=== PATIENT | female | born 1940 | race Caucasian/White ===

== ENCOUNTER 2021-07-30 19:07 | Inpatient (IN) ==
[2021-07-30] MEDS ORDERED: dexAMETHasone**PF** 10 MG/ML VIAL IV ONE (19:32)
[2021-07-30] MEDS ORDERED: SODIUM CHLORIDE 0.9% 500 ML IV STA (19:32)
--- NOTE | 2021-07-30 19:39 | Emergency Department Note ---
History of Present Illness General Chief complaint: Shortness of Breath/Dyspnea Stated complaint: COVID EXPOSURE, SOB, COUGH, WEAK, Time Seen by Provider: 07/30/21 19:22 History of Present Illness 80-year-old female presents to the ED with a chief complaint of shortness of breath, cough, fatigue and fever fever. Symptoms are worse with exertion. She states that a family member had Covid and she started having symptoms about 3 to 4 days ago. No chest pains. No leg swelling. Denies any significant past me dical history and takes no medications. Home Medications Medication Instructions Recorded Confirmed Type ibuprofen 200 mg tablet (Advil) 400 mg PO Q6H PRN 07/30/21 07/30/21 History lisinopril 20 1 tab PO UD 07/30/21 07/30/21 History mg-hydrochlorothiazide 12.5 mg tablet Allergies Allergy/AdvReac Type Severity Reaction Status Date / Time cephalexin [From Keflex] Allergy Unknown Verified 07/30/21 20:37 Penicillins AdvReac HEART Verified 07/30/21 20:37 STOPPED Past Med/Surg History Social History Smoking Status: Never smoker Feels Safe at Home: Yes Review of Systems A total of 10 systems reviewed and were otherwise negative Physical Exam Vital Signs Vital Signs - 24 hr 07/30/21 19:16 07/30/21 19:27 07/30/21 20:07 Temperature 37.9 C H Temperature Source Temporal Artery Scan Pulse Rate 95 H Pulse Rate [Apical] 89 Pulse Rhythm [Apical] Regular Pulse Strength [Apical] Normal Respiratory Rate 26 H 24 Respiratory Effort / Characteristics Spontaneous Labored Non-Labored Respiratory Depth Normal Normal Respiratory Pattern Regular Blood Pressure 204/103 H Blood Pressure [Right Arm] 173/87 H Blood Pressure Mean 136 Blood Pressure Mean [Right Arm] 115 Pulse Oximetry 73 L 96 96 Oxygen Delivery Method Room Air Oxymask Oxymask Oxygen Flow Rate 15 10 Sepsis Recent Fever Within 48 Hours No Sepsis New/Unexplained Change in Mental Status No Sepsis Action Taken by Nursing No Action Required Oxygen Flow Rate - Titration 15 Pulse Oximetry Post Tiitration 96 07/30/21 21:08 Temperature Temperature Source Pulse Rate Pulse Rate [Apical] 77 Pulse Rhythm [Apical] Pulse Strength [Apical] Respiratory Rate 20 Respiratory Effort / Characteristics Respiratory Depth Respiratory Pattern Blood Pressure Blood Pressure [Right Arm] 178/88 H Blood Pressure Mean Blood Pressure Mean [Right Arm] 118 Pulse Oximetry 92 Oxygen Delivery Method Oxymask Oxygen Flow Rate 10 Sepsis Recent Fever Within 48 Hours Sepsis New/Unexplained Change in Mental Status Sepsis Action Taken by Nursing Oxygen Flow Rate - Titration Pulse Oximetry Post Tiitration CONSTITUTIONAL/VITAL SIGNS: Reviewed / noted above. GENERAL: Non-toxic in appearance. Mild respiratory distress. INTEGUMENTARY: Warm, dry, and [place]. HEAD: Normocephalic. EYES: without scleral icterus or trauma. ENT/OROPHARYNX: clear and moist. LYMPHADENOPATHY/NECK: Is supple without lymphadenopathy or meningismus. RESPIRATORY: Clear to auscultation bilaterally but diminished Mild increased work of breathing. CARDIOVASCULAR: Regular rate and rhythm. GI/ABDOMEN: Soft and nontender. No organomegaly or pulsatile mass. EXTREMITIES: Warm and well perfused. BACK: No CVA tenderness. NEUROLOGICAL: Intact without focal deficits. PSYCHIATRIC: normal affect. MUSCULOSKELETAL: Normally developed with good muscle tone. TRIAGE NURSING DOCUMENTATION REVIEWED. Course Administered Medications Discontinued Medications Dexamethasone Sodium Phosphate (DexamethasonePf 10 Mg/Ml Vial) 6 mg IV NOW ONE Stop: 07/30/21 19:33 Last Admin: 07/30/21 20:03 Dose: 6 mg Documented by: [id number] Sodium Chloride (Nss) 500 mls @ 999 mls/hr IV .Q31M STA Stop: 07/30/21 20:02 Last Admin: 07/30/21 20:04 Dose: 999 mls/hr Documented by: [id number] Cefepime HCl (Maxipime) 2,000 mg in 20 mls @ 5 mls/min IV NOW STA; Protocol Stop: 07/30/21 20:39 Last Admin: 07/30/21 21:30 Dose: Not Given Documented by: [id number] Potassium Chloride (Potassium Chloride 10 Meq Tabcr) 40 meq PO NOW STA Stop: 07/30/21 21:02 Last Admin: 07/30/21 21:29 Dose: 40 meq Documented by: [id number] Critical Care Time Critical Care Time: Yes Total Critical Care Time: 30 I have personally spent 30 minutes of critical care time in the direct management of this patient. This includes bedside care, interpretation of diagnostic studies, and testing, discussion with consultants, patient, and family members, and other required patient management activities. This 30 minutes is in excess of all separately billable procedures. Medical Decision Making Differential Diagnosis The differential was considered includes acute myocardial infarction, acute coronary syndrome, myocarditis, pericarditis, pericardial effusions /tamponad, esophageal perforation, pulmonary embolism, pneumonia, pneumothorax, cardiomyopathy, congestive heart, anemia , COPD/asthma exacerbation. Medical Records Attestation: I reviewed the patient's medical records. Home Medications Current Medication List: was personally reviewed by me Laboratory Data Attestation: I reviewed the patient's lab results. Result diagrams: 07/30/21 19:30 07/30/21 19:30 Lab Results 07/30/21 07/30/21 07/30/21 Range/Units 19:30 19:30 19:30 WBC 9.27 (4.8-10.8) K/uL RBC 4.87 (4.2-5.4) M/uL Hgb 14.4 (12.0-16.0) g/dL Hct 43.4 (37-47) % MCV 89.1 (80-100) fL MCH 29.6 (25-34) pg MCHC 33.2 (32-36) g/dL RDW Std Deviation 44.5 (36.4-46.3) fL RDW Coeff of Sherry 13.5 (11.5-14.5) % Plt Count 302 (130-400) K/uL MPV 10.0 (7.4-10.4) fL Immature Gran % (Auto) 0.2 % Neut % (Auto) 92.6 % Lymph % (Auto) 4.6 % [place] % (Auto) 2.5 % Eos % (Auto) 0.0 % Baso % (Auto) 0.1 % Neut # (Auto) 8.58 H (1.4-6.5) K/uL Lymph # (Auto) 0.43 L (1.2-3.4) K/uL [place] # (Auto) 0.23 (0.11-0.59) K/uL Eos # (Auto) 0.00 (0-0.5) K/uL Baso # (Auto) 0.01 (0-0.2) K/uL Immature Gran # (Auto) 0.02 (0.00-0.02) K/uL PT 10.5 (9.0-12.0) Seconds INR 1.0 (0.9-1.1) APTT 37.6 H (21.0-31.0) Seconds PTT Ratio 1.4 VBG pH (7.36-7.41) VBG pCO2 (38-50) mmHg VBG pO2 mmHg VBG HCO3 mmol/L VBG O2 Saturation % VBG Base Excess mEq/L Barometric Pressure mm/Hg Sodium 136 (136-145) mmol/L Potassium 2.6 L (3.5-5.1) mmol/L Chloride 98 (98-107) mmol/L Carbon Dioxide 30 (21-32) mmol/L Anion Gap 8.0 (3-11) BUN 19 H (7-18) mg/dl Creatinine 0.94 (0.6-1.2) mg/dl Est Cr Clr Drug Dosing 44.6 ml/min Est GFR ( Amer) 65.9 ml/min Est GFR (Non-Af Amer) 56.9 ml/min BUN/Creatinine Ratio 20.1 H (10-20) Glucose 203 H (70-99) mg/dl Lactate (0.4-2.0) mmol/L Calcium 9.0 (8.5-10.1) mg/dl Total Bilirubin 0.7 (0.2-1) mg/dl AST 23 (15-37) U/L ALT 20 (12-78) Alkaline Phosphatase 83 (45-117) U/L Lactate Dehydrogenase (84-246) U/L Troponin I 0.022 (0-0.045) ng/ml C-Reactive Protein 28.80 H (0-0.29) mg/dl NT-Pro-B Natriuret Pep 920 (0-1800) pg/ml Total Protein 7.0 (6.4-8.2) gm/dl Albumin 2.5 L (3.4-5.0) gm/dl Globulin 4.5 H (2.5-4.0) gm/dl Albumin/Globulin Ratio 0.6 L (0.9-2) Procalcitonin (0-0.5) ng/ml SARS-CoV-2 (PCR) (Negative) Influenza Type A (PCR) (Neg) Influenza Type B (PCR) (Neg) RSV (RT-PCR) (Neg) 12/08/21 12/08/21 12/08/21 Range/Units 19:30 19:30 19:30 WBC (4.8-10.8) K/uL RBC (4.2-5.4) M/uL Hgb (12.0-16.0) g/dL Hct (37-47) % MCV (80-100) fL MCH (25-34) pg MCHC (32-36) g/dL RDW Std Deviation (36.4-46.3) fL RDW Coeff of Sherry (11.5-14.5) % Plt Count (130-400) K/uL MPV (7.4-10.4) fL Immature Gran % (Auto) % Neut % (Auto) % Lymph % (Auto) % [place] % (Auto) % Eos % (Auto) % Baso % (Auto) % Neut # (Auto) (1.4-6.5) K/uL Lymph # (Auto) (1.2-3.4) K/uL [place] # (Auto) (0.11-0.59) K/uL Eos # (Auto) (0-0.5) K/uL Baso # (Auto) (0-0.2) K/uL Immature Gran # (Auto) (0.00-0.02) K/uL PT (9.0-12.0) Seconds INR (0.9-1.1) APTT (21.0-31.0) Seconds PTT Ratio VBG pH (7.36-7.41) VBG pCO2 (38-50) mmHg VBG pO2 mmHg VBG HCO3 mmol/L VBG O2 Saturation % VBG Base Excess mEq/L Barometric Pressure mm/Hg Sodium (136-145) mmol/L Potassium (3.5-5.1) mmol/L Chloride (98-107) mmol/L Carbon Dioxide (21-32) mmol/L Anion Gap (3-11) BUN (7-18) mg/dl Creatinine (0.6-1.2) mg/dl Est Cr Clr Drug Dosing ml/min Est GFR ( Amer) ml/min Est GFR (Non-Af Amer) ml/min BUN/Creatinine Ratio (10-20) Glucose (70-99) mg/dl Lactate (0.4-2.0) mmol/L Calcium (8.5-10.1) mg/dl Total Bilirubin (0.2-1) mg/dl AST (15-37) U/L ALT (12-78) Alkaline Phosphatase (45-117) U/L Lactate Dehydrogenase 337 H (84-246) U/L Troponin I (0-0.045) ng/ml C-Reactive Protein (0-0.29) mg/dl NT-Pro-B Natriuret Pep (0-1800) pg/ml Total Protein (6.4-8.2) gm/dl Albumin (3.4-5.0) gm/dl Globulin (2.5-4.0) gm/dl Albumin/Globulin Ratio (0.9-2) Procalcitonin 0.54 H (0-0.5) ng/ml SARS-CoV-2 (PCR) POSITIVE A* (Negative) Influenza Type A (PCR) Negative (Neg) Influenza Type B (PCR) Negative (Neg) RSV (RT-PCR) Negative (Neg) 07/30/21 07/30/21 Range/Units 19:55 20:02 WBC (4.8-10.8) K/uL RBC (4.2-5.4) M/uL Hgb (12.0-16.0) g/dL Hct (37-47) % MCV (80-100) fL MCH (25-34) pg MCHC (32-36) g/dL RDW Std Deviation (36.4-46.3) fL RDW Coeff of Sherry (11.5-14.5) % Plt Count (130-400) K/uL MPV (7.4-10.4) fL Immature Gran % (Auto) % Neut % (Auto) % Lymph % (Auto) % [place] % (Auto) % Eos % (Auto) % Baso % (Auto) % Neut # (Auto) (1.4-6.5) K/uL Lymph # (Auto) (1.2-3.4) K/uL [place] # (Auto) (0.11-0.59) K/uL Eos # (Auto) (0-0.5) K/uL Baso # (Auto) (0-0.2) K/uL Immature Gran # (Auto) (0.00-0.02) K/uL PT (9.0-12.0) Seconds INR (0.9-1.1) APTT (21.0-31.0) Seconds PTT Ratio VBG pH 7.46 H (7.36-7.41) VBG pCO2 46 (38-50) mmHg VBG pO2 30 mmHg VBG HCO3 32 mmol/L VBG O2 Saturation < 60.0 % VBG Base Excess 7.1 mEq/L Barometric Pressure 731.6 mm/Hg Sodium (136-145) mmol/L Potassium (3.5-5.1) mmol/L Chloride (98-107) mmol/L Carbon Dioxide (21-32) mmol/L Anion Gap (3-11) BUN (7-18) mg/dl Creatinine (0.6-1.2) mg/dl Est Cr Clr Drug Dosing ml/min Est GFR ( Amer) ml/min Est GFR (Non-Af Amer) ml/min BUN/Creatinine Ratio (10-20) Glucose (70-99) mg/dl Lactate 1.9 (0.4-2.0) mmol/L Calcium (8.5-10.1) mg/dl Total Bilirubin (0.2-1) mg/dl AST (15-37) U/L ALT (12-78) Alkaline Phosphatase (45-117) U/L Lactate Dehydrogenase (84-246) U/L Troponin I (0-0.045) ng/ml C-Reactive Protein (0-0.29) mg/dl NT-Pro-B Natriuret Pep (0-1800) pg/ml Total Protein (6.4-8.2) gm/dl Albumin (3.4-5.0) gm/dl Globulin (2.5-4.0) gm/dl Albumin/Globulin Ratio (0.9-2) Procalcitonin (0-0.5) ng/ml SARS-CoV-2 (PCR) (Negative) Influenza Type A (PCR) (Neg) Influenza Type B (PCR) (Neg) RSV (RT-PCR) (Neg) Imaging Data Radiologist's Impression: Chest X-Ray 07/30/21 19:32 XR chest 1V portable CLINICAL HISTORY: Dyspnea TECHNIQUE: Single frontal radiograph of the chest was obtained. Comparison: None available at the time of this dictation. FINDINGS: No lines and tubes are seen. Cardiomegaly is noted. Bilateral lower lung predom inant airspace opacities are seen. No evidence of pleural effusion or pneumothorax. IMPRESSION: Bilateral lower lung predominant airspace opacities which may represent atelectasis, pneumonia, and/or aspiration. ACT 112: Negative or not required by law. Electronically signed by: Derek Tomas M.D. 07/30/2021 8:05 PM ECG Data Attestation: I personally reviewed and interpreted this ECG as follows: Additional Comments: Twelve-lead EKG: Per my interpretation there is a sinus rhythm at a rate of 87. No ST elevation. No PVCs. Normal QTC. MDM Narrative Patient presents with cough, hypoxia and fever likely related to recent Covid exposure 3 to 4 days ago. Initial vital signs show a oxygen saturation of 73% on room air. Temperature 37.9. Blood pressure was initially elevated however 200 systolic. This improved short time later to 173/87. She is in mild respiratory distress on exam. EKG shows sinus rhythm at a rate of 87. CBC is normal. Potassium was 2.6. CRP is 28. Troponin is negative. Procalcitonin is 0.54. Chest x-ray reveals bilateral lower lobe opacities. VBG was unremarkable. The patient was treated with some oral potassium. She was also given IV Decadron and IV fluids She will be seen by the hospitalist for further patient evaluation and care. Impression & Plan COVID-19, Hypoxia Discharge Plan Visit Data Chief Complaint: Shortness of Breath/Dyspnea Stated Complaint: COVID EXPOSURE, SOB, COUGH, WEAK, ED Provider: Heron Meng Discharge Problem: COVID-19, Hypoxia Patient Disposition: Being Evaluated by Hospitalist Forms Stand Alone Forms: My [facility] Relative[facility] Prescriptions Prescriptions: No Action lisinopril-hydrochlorothiazide 20-12.5 mg tablet 1 tab PO UD RF: 0 ibuprofen [Advil] 200 mg Tablet 400 mg PO Q6H PRN (Reason: Pain) RF: 0 Referrals Referrals: PCP,NO [Physician] -
[2021-07-30 19:40] LABS: Basophils # (auto) 0.01 K/uL (0-0.2); Basophils % (auto) 0.1 %; Hematocrit (blood only) 43.4 % (37-47); Hemoglobin 14.4 g/dL (12.0-16.0); Immature Granulocytes # (auto) 0.02 K/uL (0.00-0.02); Immature Granulocytes % (auto) 0.2 %; Lymphocytes # (auto) 0.43 K/uL (1.2-3.4); Lymphocytes % (auto) 4.6 %; Mean Corpuscular Hemoglobin 29.6 pg (25-34); Mean Corpuscular Hgb Conc 33.2 g/dL (32-36); Mean Corpuscular Volume 89.1 fL (80-100); Monocytes # (auto) 0.23 K/uL (0.11-0.59); Monocytes % (auto) 2.5 %; Neutrophils # (auto) 8.58 K/uL (1.4-6.5); Neutrophils % (auto) 92.6 %; Platelet Count 302 K/uL (130-400); RDW Coefficient of Variation 13.5 % (11.5-14.5); RDW Standard Deviation 44.5 fL (36.4-46.3); Red Blood Count 4.87 M/uL (4.2-5.4); White Blood Count 9.27 K/uL (4.8-10.8)
[2021-07-30 19:55] LABS: Partial Thromboplastin Ratio 1.4; Partial Thromboplastin Time 37.6 Seconds (21.0-31.0); Prothrombin Time 10.5 Seconds (9.0-12.0)
[2021-07-30 20:00] LABS: Albumin Level 2.5 gm/dl (3.4-5.0); BUN Creatinine Ratio 20.1 (10-20); Creatinine Clr Calc Pharmacy 44.6 ml/min; Est GFR (African American) 65.9 ml/min; Est GFR (Non-African American) 56.9 ml/min; Potassium 2.6 mmol/L (3.5-5.1)
--- NOTE | 2021-07-30 20:06 | XRay Report ---
XR chest 1V portable CLINICAL HISTORY: Dyspnea TECHNIQUE: Single frontal radiograph of the chest was obtained. Comparison: None available at the time of this dictation. FINDINGS: No lines and tubes are seen. Cardiomegaly is noted. Bilateral lower lung predominant airspace opaciti es are seen. No evidence of pleural effusion or pneumothorax. IMPRESSION: Bilateral lower lung predominant airspace opacities which may represent atelectasis, pneumonia, and/o r aspiration. ACT 112: Negative or not required by law. Electronically signed by: Derek Tomas M.D. 07/30/2021 8:05 PM
[2021-07-30 20:08] LABS: Albumin Globulin Ratio 0.6 (0.9-2); Bilirubin,Total 0.7 mg/dl (0.2-1); C Reactive Protein 28.8 mg/dl (0-0.29); Globulin 4.5 gm/dl (2.5-4.0); Troponin I 0.022 ng/ml (0-0.045)
[2021-07-30 20:16] LABS: Base Excess VBG 7.1 mEq/L; HCO3 VBG 32 mmol/L; PCO2 VBG 46 mmHg (38-50); PO2 VBG 30 mmHg; pH VBG 7.46 (7.36-7.41)
[2021-07-30 20:20] LABS: Oxygen Saturation VBG < 60.0 %
[2021-07-30] MEDS ORDERED: CEFEPIME 2,000 MG/20 ML VIAL IV STA (20:36)
[2021-07-30 20:40] LABS: Influenza A virus by PCR Negative (Neg); Influenza B virus by PCR Negative (Neg); RSV by PCR Negative (Neg)
[2021-07-30 20:50] LABS: SARS CoV2 RNA(COVID-19) InHosp POSITIVE (Negative)
[2021-07-30] MEDS ORDERED: POTASSIUM CHLORIDE 10 MEQ TABCR PO STA (21:01)
[2021-07-30] MEDS ORDERED: REMDESIVIR 200 MG in SODIUM CHLORIDE 0.9% 210 ML IV STA (22:09)
[2021-07-30] MEDS ORDERED: POTASSIUM CHLORIDE / WTR 10 MEQ/100 ML PLCT IV STA (22:26)
[2021-07-30] MEDS ORDERED: ACETAMINOPHEN 325 MG TAB PO PRN (23:31)
[2021-07-30] MEDS ORDERED: LISINOPRIL/HCTZ 20/12.5MG 1 TAB TAB PO SCH (23:31)
[2021-07-30] MEDS ORDERED: ALBUTEROL HFA 8 GM INHALER INH PRN (23:31)
[2021-07-30] MEDS ORDERED: ONDANSETRON INJ 2 MG/ML 2 ML VIAL IV PRN (23:31)
[2021-07-30] MEDS ORDERED: SODIUM CHLORIDE 0.9% 1000ML 1,000 ML IV SCH (23:31)
[2021-07-30] MEDS ORDERED: NITROGLYCERIN SL 0.4 MG/TAB TAB SL PRN (23:31)
--- NOTE | 2021-07-30 23:41 | History and Physical Report ---
DATE OF ADMISSION: 07/30/2021. CHIEF COMPLAINT: Cough, weakness. HISTORY OF PRESENT ILLNESS: This is an 80-year-old female with past medical history significant for hypertension, who presents with COVID symptoms since last Wednesday and Wednesday, 4-5 days ago. The patient says her recently and she thinks she was exposed to a family member who got COVID. She is feeling extremely fatigued, weakness, appetite is down, on and off fevers, on and off cough, of and off headaches. When she stands up, she feels somewhat imbalance. The weakness brought her to the hospital and she was saturating 73% on room air. With 10 liters, she is saturating at 92%. Currently resting comfortably. Denies any blurred visions. No runny nose, no sore throat, no earaches. No difficulty swallowing. No chest pain. Denies any shortness of breath at this time. No nausea, no abdominal pain, no diarrhea. No swelling in the legs. ALLERGIES: KEFLEX, PENICILLINS. PAST MEDICAL HISTORY: As mentioned above. PAST SURGICAL HISTORY: The patient denies any surgical history. FAMILY HISTORY: The patient denies any family history. Her parents lived to old age. SOCIAL HISTORY: Denies any smoking or alcohol. Currently, since her on 07/24/2021 she is living alone. REVIEW OF SYSTEMS: As per HPI. Rest of review of systems negative. PHYSICAL EXAMINATION: GENERAL: The patient is of moderate build, not in acute distress. VITAL SIGNS: Temperature 37.9, pulse 77, respiratory rate 20, blood pressure 178/88, oxygen 92% on 10 liters. HEENT: Pupils equal, round, and reactive to light. Oral mucosa moist. NECK: No JVD. No neck masses seen. CARDIOVASCULAR: S1 and S2 heard. Regular rate and rhythm. No murmur, no gallop. RESPIRATORY SYSTEM: Normal AP diameter. No accessory muscle use. No wheezing, no crackles. ABDOMEN: Soft, bowel sounds present, nontender, no distention. CENTRAL NERVOUS SYSTEM: Cranial nerves II-XII grossly intact, nonfocal. EXTREMITIES: No edema, no erythema. LABORATORY DATA: WBC 9.2, hemoglobin 14.4, hematocrit 43.4, platelets 302. PT 10.5, INR 1, APTT 37.6. Venous blood gas, pH of 7.46, pCO2 of 46, pO2 of 30, bicarbonate 32. Sodium 136, potassium 2.6, chloride 98, CO2 of 30, BUN 19, creatinine 0.9, serum glucose 203. Lactate 1.9, calcium 9, total bilirubin 0.7, AST 23, ALT 20, alkaline phosphatase 83. Lactate dehydrogenase of 337. Troponin 1 of 0.022. CRP 28, BNP 920. Procalcitonin 0.54. SARS-CoV-2 PCR positive. Influenza A and B negative. RSV negative. IMAGING DATA: Chest x-ray, bilateral lower lobe predominant airspace opacities, which may represent atelectasis, pneumonia and/or aspiration. ASSESSMENT AND PLAN: This 80-year-old female presents with COVID pneumonia. 1. COVID pneumonia, hypoxia, 73% on room air, requiring 10 L oxygen. Having symptoms since last Wednesday and Wednesday, 4-5 days. Not vaccinated. Meets criteria for remdesivir and steroids will be given. CRP is elevated. Will follow the repeat CRP in the a.m. Also repeat procalcitonin in the a.mas borderline elevated.. Empiric Doxycycline. Closely monitor in the tele floor. 2. Hyperglycemia: Sugars elevated and currently the patient gets steroids. Will follow HbA1c levels. Follow the blood sugars. 3. Hypokalemia: Potassium 2.6, will replace. Follow the repeat labs in the a.m. 4. Hypertension: Continue her home medication of lisinopril/hydrochlorothiazide and will monitor the blood pressure. Add IV hydralazine p.r.n. 5. Deep venous thrombosis prophylaxis: Lovenox. DISPOSITION: Closely monitor in the tele floor. Level 1 full code. Expect to discharge home and follow with family doctor. PT/OT prior to discharge. Social service to help with discharge planning. Job ID: [id number] MTDD
[2021-07-31] MEDS ORDERED: hydrALAZINE HCL 20 MG/ML VIAL IV PRN (00:30)
[2021-07-31] MEDS: ENOXAPARIN INJ 40 MG/0.4 ML SYR SQ SCH ×2 (00:59→21:20)
[2021-07-31] MEDS: POTASSIUM CHLORIDE / WTR 10 MEQ/100 ML PLCT IV SCH ×3 (01:00→03:39)
[2021-07-31] MEDS: SODIUM CHLORIDE 0.9% 10ML FLUSH IV SCH ×2 (02:19→22:31)
[2021-07-31] MEDS: DOXYCYCLINE HYCLATE 100 MG in DEXTROSE 5% 100 ML IV SCH ×3 (02:25→23:56)
[2021-07-31 05:54] LABS: Hematocrit (blood only) 39.1 % (37-47); Hemoglobin 12.9 g/dL (12.0-16.0); Immature Granulocytes # (auto) 0.02 K/uL (0.00-0.02); Immature Granulocytes % (auto) 0.2 %; Lymphocytes # (auto) 0.41 K/uL (1.2-3.4); Mean Corpuscular Hemoglobin 29.3 pg (25-34); Mean Corpuscular Volume 88.9 fL (80-100); Monocytes # (auto) 0.14 K/uL (0.11-0.59); Monocytes % (auto) 1.7 %; Neutrophils # (auto) 7.65 K/uL (1.4-6.5); Neutrophils % (auto) 93.1 %; Platelet Count 281 K/uL (130-400); RDW Coefficient of Variation 13.6 % (11.5-14.5); RDW Standard Deviation 44.4 fL (36.4-46.3); White Blood Count 8.22 K/uL (4.8-10.8)
[2021-07-31 06:40] LABS: Albumin Level 2.2 gm/dl (3.4-5.0); BUN Creatinine Ratio 27.5 (10-20); Bilirubin,Total 0.5 mg/dl (0.2-1); Calcium 8.4 mg/dl (8.5-10.1); Creatinine Clr Calc Pharmacy 65.9 ml/min; Est GFR (Non-African American) 83.7 ml/min; Magnesium 2.2 mg/dl (1.8-2.4); Potassium 3.4 mmol/L (3.5-5.1)
[2021-07-31 07:03] LABS: Bilirubin Direct 0.2 mg/dl (0-0.2); Total Protein 6.3 gm/dl (6.4-8.2)
[2021-07-31 07:12] LABS: Estimated Average Glucose 148 mg/dl; Hemoglobin A1C 6.8 % (4.5-5.6)
[2021-07-31] MEDS ORDERED: POTASSIUM CHLORIDE CRTAB 20 MEQ TABCR PO STA (07:29)
[2021-07-31] MEDS ORDERED: PHARMACY GLYCEMIC MGMT CONSULT PRN (09:08)
[2021-07-31] MEDS ORDERED: INSULIN HUMAN NPH SC ONE (10:00)
--- NOTE | 2021-07-31 10:04 | Pharmacy Report ---
Pharmacy Glycemic Short Note 2 - Date of Service July 31, 2021 - Glycemic Short BSG Results (Last 24 hours): 07/30/21 07/31/21 19:30 05:37 Glucose 203 H 191 H OUTPATIENT ANTIDIABETIC REGIMEN: * N/A * A1c = 6.8% on 07/31/21 ASSESSMENT: * 80yo female with steroid induced hyperglycemia. A1c slightly elevated and diagnostic for DMT2 as it is > 6.5% but likely just lifestyle interventions will be needed at [place]. * Pt admitted with COVID-19; receiving dexamethasone 6mg IV daily. Will start weight based NPH for steroid induced hyperglycemia * NPH insulin is used to counteract the hyperglycemic effect of once daily steroids. NPH should be dosed at the same time that steroid is given * The dose of NPH given is dependent on the steroid dose given * For doses of prednisone 40mg/day or equivalent or above NPH dose should be 0.4 units/kg * NPH dosing above is given in addition to patients basal insulin needs * Typically, patients will also need rapid-acting insulin with meals PLAN FOR INPATIENT GLYCEMIC CONTROL: * Basal insulin * NPH 30 units SQ daily with dexamethasone (hold if dexamethasone held or DC) * Bolus insulin * NovoLog per scale ACHS or Q6hrs while NPO * Goal Range: Low 120 mg/dL - High 160 mg/dL * Correction Factor: 30 mg/dL/unit * Nutritional / Prandial insulin per carb ratio of 1 unit per 10 grams CHO consumed PLAN FOR DISCHARGE: * Support Patient Self-Management Healthy Lifestyle (diet, exercise, and smoking cessation) Disease self-management (SMBG) Prevention of complications (BP, Lipid goals, Immunizations) Consider outpatient Diabetes Self-Management Education & Support
[2021-07-31] MEDS ORDERED: POTASSIUM CHLORIDE 10 MEQ TABCR PO ONE (10:11)
[2021-07-31] MEDS: dexAMETHasone 6 MG in SYRINGE 0 ML IV SCH (10:16)
[2021-07-31] MEDS: FLUTICASONE FUROATE 100MCG 14 PUFFS/INHALER INH SCH (10:17)
[2021-07-31] MEDS: LISINOPRIL/HCTZ 20/12.5MG 1 TAB TAB PO SCH (10:17)
[2021-07-31] MEDS ORDERED: NovoLIN-R INSULIN PER UNIT CHARGE ONE (12:49)
[2021-07-31] MEDS: INSULIN ASPART PER UNIT SC SCH ×5 (12:53→21:30)
[2021-07-31] MEDS ORDERED: OPTIRAY 320 125ml IV ONE (14:26)
--- NOTE | 2021-07-31 14:40 | CT Scan Report ---
CT angio chest PE protocol CLINICAL HISTORY: PE TECHNIQUE: Multidetector row helical CT of the chest was performed. Coronal and sagittal reformations were obtained. Automated dose lowering techniques and/or adjustment according to patient size were u tilized for this exam. Comparison: None available at the time of this dictation. FINDINGS: Lungs and pleura: Multifocal groundglass and consolidative opacities are seen favoring the lower lung s. Heart and pericardium: Heart size is normal. No pericardial effusion. Vessels: The pulmonary trunk is enlarged measuring 33 mm. Mediastinum and rena: Subcentimeter lymph nodes are seen. Chest wall and lower neck: A 19 mm left thyroid nodule is seen. Abdomen: Unremarkable. Bones: Unremarkable. IMPRESSION: 1. No evidence of pulmonary embolism. 2. Pulmonary hypertension. 3. Multiple airspace consolidative opacities compatible with viral pneumonia with or without superim posed aspiration/atelectasis. ACT 112: Negative or not required by law. Electronically signed by: Derek Tomas M.D. 07/31/2021 2:38 PM
--- NOTE | 2021-07-31 21:17 | Hospitalist Progress Note ---
Date of Service July 31, 2021 Assessment & Plan (1) Pneumonia due to COVID-19 virus: (2) Hypoxia: Plan: 1. COVID pneumonia Acute Hypoxic Respiratory Failure - 73% on room air, requiring 10 L oxygen. Having symptoms since last Wednesday and Wednesday, 4-5 days. Not vaccinated. - CT chest: (+) pneumonia Procalcitonin negative - on 10 L oxymask - continue Decadron and Remdesivir - Lovenox for DVT prophylaxis 2. Hyperglycemia - a1c 6.8 - Pharmacy Glycemic consulted 3. Hypokalemia: - 3.4 - replaced 4. Hypertension: Continue her home medication of lisinopril/hydrochlorothiazide 5. Deep venous thrombosis prophylaxis: Lovenox. Admission and Anticipated Discharge Date Admission Date: July 30, 2021 Subjective ff up for COVID Pneumonia, hypoxic respiratory failure, etc seen resting in bed, comfortable on 10 L 02 via oxymask states she feels improved compared to admisison breathing has improved has productive cough no chest pain no other symptoms Review of Systems Review of Systems: all noted and negative except for above Physical Exam Physical Exam: General- oriented x 3, not in distress, speaks in sentences with no effort or accessory muscle use Eyes- anicteric Neck- no JVD Lungs- mild crackles at the bases BL Heart- normal rate, regular rhythm; no murmurs Abdomen- normal bowel sounds, nondistended, soft, nontender Extremities- no pretibial edema, no calf tenderness Neuro- alert, oriented x 3; no gross focal neurologic deficits Skin- warm & dry Results & Data Results & Data ([facility]) Vital Signs (Past 12 Hours) Vital Signs Temp Pulse Resp BP Pulse Ox 07/31/21 19:55 36.8 C 74 31 H 131/68 89 L 07/31/21 16:16 63 27 H 142/91 H 92 07/31/21 11:04 36.5 C 69 24 162/78 H 93 all noted and reviewed including below Laboratory Results all noted and reviewed including below
[2021-07-31] MEDS: REMDESIVIR 100 MG in SODIUM CHLORIDE 0.9% 230 ML IV SCH (21:19)
--- NOTE | 2021-07-31 21:50 | Electrocardiogram Report ---
Test Reason : Blood Pressure : / mmHG Vent. Rate : 087 BPM Atrial Rate : 087 BPM P-R Int : 158 ms QRS Dur : 090 ms QT Int : 362 ms P-R-T Axes : 034 -41 032 degrees QTc Int : 435 ms Sinus rhythm with Premature atrial complexes Left axis deviation Left ventricular hypertrophy with repolarization abnormality Cannot rule out Septal infarct , age undetermined Abnormal ECG No previous ECGs available Confirmed by Rush Koroma ([id number]) on 07/31/2021 9:50:18 PM Referred By: REFERRED SELF Confirmed By:Rush Koroma
[2021-08-01] MEDS ORDERED: LEVALBUTEROL HCL 1.25 MG/3 ML NEB NEB PRN (00:30)
[2021-08-01 06:11] LABS: Creatinine Clr Calc Pharmacy 71.5 ml/min; Est GFR (African American) 99.6 ml/min
[2021-08-01] MEDS: INSULIN ASPART PER UNIT SC SCH ×4 (09:00→20:36)
[2021-08-01] MEDS: INSULIN HUMAN NPH SC SCH (09:00)
[2021-08-01] MEDS: FLUTICASONE FUROATE 100MCG 14 PUFFS/INHALER INH SCH (09:05)
[2021-08-01] MEDS: LISINOPRIL/HCTZ 20/12.5MG 1 TAB TAB PO SCH (09:05)
[2021-08-01] MEDS: dexAMETHasone 6 MG in SYRINGE 0 ML IV SCH (09:30)
[2021-08-01 09:50] LABS: Basophils # (auto) 0.01 K/uL (0-0.2); Basophils % (auto) 0.1 %; Hemoglobin 13.4 g/dL (12.0-16.0); Immature Granulocytes # (auto) 0.06 K/uL (0.00-0.02); Immature Granulocytes % (auto) 0.5 %; Lymphocytes # (auto) 0.63 K/uL (1.2-3.4); Lymphocytes % (auto) 4.9 %; Mean Corpuscular Hemoglobin 29.2 pg (25-34); Mean Corpuscular Hgb Conc 33.5 g/dL (32-36); Mean Corpuscular Volume 87.1 fL (80-100); Mean Platelet Volume 9.8 fL (7.4-10.4); Monocytes % (auto) 3.9 %; Neutrophils # (auto) 11.62 K/uL (1.4-6.5); Neutrophils % (auto) 90.6 %; Platelet Count 361 K/uL (130-400); RDW Coefficient of Variation 13.7 % (11.5-14.5); RDW Standard Deviation 43.6 fL (36.4-46.3); Red Blood Count 4.59 M/uL (4.2-5.4); White Blood Count 12.82 K/uL (4.8-10.8)
[2021-08-01 10:09] LABS: BUN Creatinine Ratio 34.2 (10-20); Calcium 9.1 mg/dl (8.5-10.1); Creatinine Clr Calc Pharmacy 64.3 ml/min; Est GFR (Non-African American) 82.8 ml/min; Potassium 3.2 mmol/L (3.5-5.1)
[2021-08-01] MEDS ORDERED: LORazepam 0.5 MG TAB PO PRN (10:30)
[2021-08-01] MEDS ORDERED: FUROSEMIDE INJ 20 MG/2 ML VIAL IV ONE (10:31)
[2021-08-01] MEDS ORDERED: BARICITINIB COMMUNICATION ONE (10:57)
[2021-08-01] MEDS: DOXYCYCLINE HYCLATE 100 MG in DEXTROSE 5% 100 ML IV SCH (12:30)
[2021-08-01] MEDS: BARICITINIB 2 MG TAB PO SCH (12:49)
[2021-08-01] MEDS: guaiFENesin 600 MG TABCR PO SCH ×2 (12:49→20:17)
--- NOTE | 2021-08-01 19:30 | Hospitalist Progress Note ---
Date of Service August 01, 2021 Assessment & Plan (1) Pneumonia due to COVID-19 virus: (2) Hypoxia: Plan: 1. COVID pneumonia Acute Hypoxic Respiratory Failure 07/31 - 73% on room air, requiring 10 L oxygen. Having symptoms since last Wednesday and Wednesday, 4-5 days. Not vaccinated. - CT chest: (+) pneumonia Procalcitonin negative - on 10 L oxymask - continue Decadron and Remdesivir - Lovenox for DVT prophylaxis 08/01 Transition to high flow O2 Discussed with patient's [id number] over the phone in detail and at length Agreeable to start baricitinib, ordered Continue Decadron remdesivir, continue doxycycline Continue flutter valve, incentive spirometry, proning 2. Hyperglycemia - a1c 6.8 - Pharmacy Glycemic consulted 3. Hypokalemia: - 3.4 - replaced 4. Hypertension: Continue her home medication of lisinopril/hydrochlorothiazide 5. Deep venous thrombosis prophylaxis: Lovenox. plan of care discussed with patient and her daughter in law in detail and at length all questions answered they are understanding, agreeable, comfortable with the plan of care Admission and Anticipated Discharge Date Admission Date: July 30, 2021 Subjective Follow-up for acute hypoxic respiratory failure, COVID-19 pneumonia, etc. Seen resting in bed, sitting up, on high flow O2, comfortable, not in distress at all States she feels somewhat better today compared to yesterday Has mild cough, no chest pain No abdominal pain, nausea vomiting No leg pain No other symptoms Review of Systems Review of Systems: all noted and negative except for above Physical Exam Physical Exam: General- oriented x 3, not in distress, speaks in sentences with no effort or accessory muscle use Eyes- anicteric Neck- no JVD Lungs- clear breath sounds bilaterally, no rales/wheezes Heart- normal rate, regular rhythm; no murmurs Abdomen- normal bowel sounds, nondistended, soft, nontender Extremities- no pretibial edema, no calf tenderness Neuro- alert, oriented x 3; no gross focal neurologic deficits Skin- warm & dry Results & Data Results & Data ([facility]) Vital Signs (Past 12 Hours) Vital Signs Temp Pulse Resp BP Pulse Ox 08/01/21 15:07 68 20 89 L 08/01/21 13:27 57 L 24 133/95 91 08/01/21 11:46 36.8 C 55 L 26 H 144/75 H 88 L 08/01/21 11:03 74 22 89 L 08/01/21 08:15 36.8 C 64 26 H 153/87 H 88 L 08/01/21 08:10 62 24 88 L all noted and reviewed including below
[2021-08-01] MEDS: REMDESIVIR 100 MG in SODIUM CHLORIDE 0.9% 230 ML IV SCH (20:12)
[2021-08-01] MEDS: ENOXAPARIN INJ 40 MG/0.4 ML SYR SQ SCH (20:17)
[2021-08-01] MEDS: SODIUM CHLORIDE 0.9% 10ML FLUSH IV SCH (22:18)
[2021-08-02] MEDS: DOXYCYCLINE HYCLATE 100 MG in DEXTROSE 5% 100 ML IV SCH ×2 (00:06→12:40)
[2021-08-02 07:00] LABS: Basophils # (auto) 0.01 K/uL (0-0.2); Basophils % (auto) 0.1 %; Immature Granulocytes % (auto) 0.8 %; Lymphocytes # (auto) 1.08 K/uL (1.2-3.4); Lymphocytes % (auto) 8.8 %; Mean Corpuscular Hemoglobin 29.2 pg (25-34); Mean Corpuscular Hgb Conc 33.3 g/dL (32-36); Mean Corpuscular Volume 87.5 fL (80-100); Mean Platelet Volume 9.7 fL (7.4-10.4); Monocytes # (auto) 0.82 K/uL (0.11-0.59); Monocytes % (auto) 6.7 %; Neutrophils # (auto) 10.24 K/uL (1.4-6.5); Neutrophils % (auto) 83.6 %; Platelet Count 421 K/uL (130-400); RDW Coefficient of Variation 13.7 % (11.5-14.5); RDW Standard Deviation 44.1 fL (36.4-46.3); White Blood Count 12.25 K/uL (4.8-10.8)
[2021-08-02 07:32] LABS: Albumin Level 2.1 gm/dl (3.4-5.0); BUN Creatinine Ratio 42.3 (10-20); Creatinine Clr Calc Pharmacy 63.9 ml/min; Est GFR (African American) 95.5 ml/min; Est GFR (Non-African American) 82.4 ml/min; Potassium 3.3 mmol/L (3.5-5.1)
[2021-08-02 08:07] LABS: Bilirubin Direct 0.1 mg/dl (0-0.2); Bilirubin,Total 0.4 mg/dl (0.2-1); Total Protein 6.2 gm/dl (6.4-8.2)
[2021-08-02] MEDS: dexAMETHasone 6 MG in SYRINGE 0 ML IV SCH (08:08)
[2021-08-02] MEDS ORDERED: FUROSEMIDE INJ 20 MG/2 ML VIAL IV ONE (08:30)
[2021-08-02] MEDS: INSULIN HUMAN NPH SC SCH (10:40)
[2021-08-02] MEDS: INSULIN ASPART PER UNIT SC SCH ×4 (10:40→21:24)
[2021-08-02] MEDS: POTASSIUM CHLORIDE CRTAB 20 MEQ TABCR PO SCH ×2 (10:48→20:55)
[2021-08-02] MEDS: guaiFENesin 600 MG TABCR PO SCH ×2 (10:49→20:54)
[2021-08-02] MEDS: LISINOPRIL/HCTZ 20/12.5MG 1 TAB TAB PO SCH (10:49)
[2021-08-02] MEDS: BARICITINIB 2 MG TAB PO SCH (10:50)
[2021-08-02] MEDS: LORazepam 0.5 MG/1 ML VIAL IV PRN ×2 (10:50→19:32)
[2021-08-02] MEDS: FLUTICASONE FUROATE 100MCG 14 PUFFS/INHALER INH SCH (12:40)
--- NOTE | 2021-08-02 16:17 | Hospitalist Progress Note ---
Date of Service August 02, 2021 Assessment & Plan (1) Pneumonia due to COVID-19 virus: (2) Hypoxia: Plan: 1. Acute Hypoxic Respiratory Failure secondary to COVID-19 pneumonia 07/31 - 73% on room air, requiring 10 L oxygen. Having symptoms since last Wednesday and Wednesday, 4-5 days. Not vaccinated. - CT chest: (+) pneumonia Procalcitonin negative - on 10 L oxymask - continue Decadron and Remdesivir - Lovenox for DVT prophylaxis 08/01 Transition to high flow O2 Discussed with patient's [id number] over the phone in detail and at length Agreeable to start baricitinib, ordered Continue Decadron remdesivir, continue doxycycline Continue flutter valve, incentive spirometry, proning 08/02 O2 saturation 84 to 88% on high flow 20% FiO2 Discussed with respiratory therapist, plan to transition to CPAP Patient uncomfortable with CPAP, currently maintained on ambulatory oxygen mask Continue Decadron, remdesivir, baricitinib, doxycycline also given Lasix IV 20 mg Continue flutter valve, incentive parameter, proning Discussed with patient's [id number] Dilia over the phone in detail She confirms patient is a full code, including mechanical ventilation She is requesting pulmonary consultation, pulmonary consult placed 2. Hyperglycemia - a1c 6.8 - Pharmacy Glycemic consulted 3. Hypokalemia: - 3.4 - replaced 4. Hypertension: Continue her home medication of lisinopril/hydrochlorothiazide 5. Deep venous thrombosis prophylaxis: Lovenox. plan of care discussed with patient and her daughter in law in detail and at length all questions answered they are understanding, agreea will comfortable with the plan of care Admission and Anticipated Discharge Date Admission Date: July 30, 2021 Subjective Follow-up for acute hypoxic respiratory failure, COVID-19 pneumonia, etc. Notified by RN that patient is saturating 84 to 88% on high flow O2 100% FiO2 Seen sitting up in bed, on high flow O2, not in distress States she feels improved today Breathing is a little bit better Has occasional cough No chest pain, no abdominal pain No leg pain No other symptoms Review of Systems Review of Systems: all noted and negative except for above Physical Exam Physical Exam: General- oriented x 2, not in distress, speaks in sentences with no effort or accessory muscle use Eyes- anicteric Neck- no JVD Lungs-positive crackles at the bases, no wheezing Heart- normal rate, regular rhythm; no murmurs Abdomen- normal bowel sounds, nondistended, soft, nontender Extremities- no pretibial edema, no calf tenderness Neuro- alert, oriented x 3; no gross focal neurologic deficits Skin- warm & dry Results & Data Results & Data ([facility]) Vital Signs (Past 12 Hours) Vital Signs Temp Pulse Pulse Resp BP Pulse Ox 08/02/21 15:32 36.7 C 55 L 24 144/73 H 89 L 08/02/21 15:00 59 L 08/02/21 14:38 25 H 94 08/02/21 11:04 85 26 H 87 L 08/02/21 11:01 37 C 72 20 154/83 H 90 08/02/21 09:05 118 H 28 H 85 L 08/02/21 07:00 57 L 08/02/21 06:58 36.6 C 58 L 18 159/75 H 87 L all noted and reviewed including below
--- NOTE | 2021-08-02 19:37 | Pulmonary Consultation ---
Date of Consultation August 02, 2021 Assessment & Plan (1) ARDS (adult respiratory distress syndrome): (2) Pneumonia due to COVID-19 virus: (3) Hypoxia: Impression: 80-year-old female with ARDS secondary to Covid pneumonitis. She is having increasing oxygen requirement but her work of breathing appears appropriate currently. Recommendations: 1. Hypoxemic respiratory failure: I do not think the patient requires intubation currently. Would continue supplemental oxygen with high flow augmented by a full facemask. Should she fail this, would pursue a trial of CPAP or BiPAP. If she were to fail that, could consider intubation mechanical ventilation. When I brought this up to the patient, she states that she is not sure she wants to proceed this and wishes to discuss with her [id number] which I think is wholly appropriate. I did discuss with her son, and [id number] on the phone implications of intubation mechanical ventilation in octogenarians with Covid and the mortality rates associated with mechanical ventilation. We briefly discussed duration of intubation and tracheostomy which they have taken under advisement and will continue to reviewed with the patient. 2. Covid pneumonitis: CRP on the ninth was elevated at 25. She is on baricitinib. Her procalcitonin was 0.38 which is below the threshold for infection. I do not think antibiotics are warranted currently unless the patient should have fever, leukocytosis, or elevated procalcitonin or positive respiratory cultures. I do not think remdesivir at this point time is going to be beneficial as the patient is outside the viral replication phase and the current processes mostly parenchymal inflammation. Would recheck procalcitonin in the morning as well as repeat CRP. If her CRP continues to climb, consideration for escalation of dexamethasone to the post ARDS protocol (20 mg a day for 5 days followed by 10 mg day for 5 days) may be appropriate. Recommend checking BNP and a low threshold for considering echocardiogram. Empiric Lasix may be beneficial. 3. DVT prophylaxis per [employer] guidelines. 4. Patient is critically ill at this point time with significant possibility of clinical deterioration. Total of 45 minutes in critical care time was spent in evaluation management of this patient including discussions with family members. We will continue to follow with you. History of Present Illness Attending Physician: Yunier Valencia MD History of Present Illness Asked by hospitalist to assist in evaluation management patient with hypoxemic respiratory failure secondary to COVID-19 pneumonitis. History is obtained from discussion with the patient's [id number], reviewed electronic medical record, and interview the patient at bedside. Patient is an 80-year-old female unvaccinated for Covid who was admitted to the facility 07/30/2021. Her symptoms started about 4 to 5 days prior to her symptoms started about 4 to 5 days prior to admission. She was hypoxemic and required 10 L at baseline. She was admitted to the hospital and treated with remdesivir and steroids. Empiric doxycycline was started. She was started on baricitinib based on her CRP and transition to high flow. Today her oxygen requirement remained high and pulmonary was consulted due to concern about potential respiratory failure. I assessed the patient on the floor. She states she is feeling actually better. She did receive a dose of Lasix. She is complaining of some burning with urination. She is currently on high flow in combination with a full facemask and has oxygen saturations of about 90%. She is not coughing or expectorating phlegm. Allergies Allergy/AdvReac Type Severity Reaction Status Date / Time cephalexin [From Keflex] Allergy Unknown Verified 07/30/21 20:37 Penicillins AdvReac HEART Verified 07/30/21 20:37 STOPPED Home Medications Medication Instructions Recorded Confirmed Type ibuprofen 200 mg tablet (Advil) 400 mg PO Q6H PRN 07/30/21 07/30/21 History lisinopril 20 1 tab PO UD 07/30/21 07/30/21 History mg-hydrochlorothiazide 12.5 mg tablet Patient History Social History Smoking Status: Never smoker Do You Dip or Chew Tobacco: No; Hx Alcohol Use: No Hx Substance Use: No Preferred Language: Cambodian Communication Ability: Effective Driver Recruiter Required: No Beliefs That Will Affect Care: None Current Living Situation: Alone Other Information That Helps Us Care for You: No Feels Safe at Home: Yes Safety Concerns: Feels Safe At This Time Assistive Devices: Oxygen - Continuous Review of Systems Review of Systems: Please refer to admission H&P and hospitalist notes. No additions or deletions Physical Exam Physical Exam: General- oriented x 2, not in distress, speaks in sentences with no effort or accessory muscle use Eyes- anicteric Neck- no JVD Lungs-positive crackles at the bases, no wheezing Heart- normal rate, regular rhythm; no murmurs Abdomen- normal bowel sounds, nondistended, soft, nontender Extremities- no pretibial edema, no calf tenderness Neuro- alert, oriented x 3; no gross focal neurologic deficits Skin- warm & dry Results & Data Results & Data ([facility]) Vital Signs (Past 12 Hours) Vital Signs Temp Pulse Pulse Resp BP Pulse Ox 08/02/21 19:15 65 24 94 08/02/21 15:32 36.7 C 55 L 24 144/73 H 89 L 08/02/21 15:00 59 L 08/02/21 14:38 25 H 94 08/02/21 11:04 85 26 H 87 L 08/02/21 11:01 37 C 72 20 154/83 H 90 08/02/21 09:05 118 H 28 H 85 L Critical Care Results & Data Vital Signs (Past 12 Hours) Vital Signs Temp Pulse Pulse Resp BP Pulse Ox 08/02/21 19:15 65 24 94 08/02/21 15:32 36.7 C 55 L 24 144/73 H 89 L 08/02/21 15:00 59 L 08/02/21 14:38 25 H 94 08/02/21 11:04 85 26 H 87 L 08/02/21 11:01 37 C 72 20 154/83 H 90 08/02/21 09:05 118 H 28 H 85 L Lab & Micro Results (Past 24 Hours) RBC 4.80 M/uL (4.2-5.4) 08/02/21 WBC 12.25 K/uL (4.8-10.8) H 08/02/21 Hgb 14.0 g/dL (12.0-16.0) 08/02/21 Hct 42.0 % (37-47) 08/02/21 MCV 87.5 fL (80-100) 08/02/21 MCH 29.2 pg (25-34) 08/02/21 MCHC 33.3 g/dL (32-36) 08/02/21 RDW Standard Deviation 44.1 fL (36.4-46.3) 08/02/21 RDW Coefficient of Variation 13.7 % (11.5-14.5) 08/02/21 Plt Count 421 K/uL (130-400) H 08/02/21 MPV 9.7 fL (7.4-10.4) 08/02/21 Neutrophils (%) (Auto) 83.6 % 08/02/21 Lymphocytes (%) (Auto) 8.8 % 08/02/21 Monocytes # (Auto) 0.82 K/uL (0.11-0.59) H 08/02/21 Eosinophils # (Auto) 0.00 K/uL (0-0.5) 08/02/21 Immature Granulocyte % (Auto) 0.8 % 08/02/21 Neutrophils # (Auto) 10.24 K/uL (1.4-6.5) H 08/02/21 Lymphocytes # (Auto) 1.08 K/uL (1.2-3.4) L 08/02/21 Monocytes # (Auto) 0.82 K/uL (0.11-0.59) H 08/02/21 Eosinophils # (Auto) 0.00 K/uL (0-0.5) 08/02/21 Basophils # (Auto) 0.01 K/uL (0-0.2) 08/02/21 Immature Granulocyte # (Auto) 0.10 K/uL (0.00-0.02) H 08/02/21 Na 141 mmol/L (136-145) 08/02/21 K 3.3 mmol/L (3.5-5.1) L 08/02/21 Cl 104 mmol/L (98-107) 08/02/21 CO2 29 mmol/L (21-32) 08/02/21 Anion Gap 8.0 (3-11) 08/02/21 BUN 28 mg/dl (7-18) H 08/02/21 Creatinine 0.67 mg/dl (0.6-1.2) 08/02/21 Estimated GFR ( Amer) 95.5 ml/min 08/02/21 Estimated GFR (Non-Af Amer) 82.4 ml/min 08/02/21 BUN/Creatinine Ratio 42.3 (10-20) H 08/02/21 Glu 101 mg/dl (70-99) H 08/02/21 Ca 9.0 mg/dl (8.5-10.1) 08/02/21 Total Bilirubin 0.4 mg/dl (0.2-1) 08/02/21 Direct Bilirubin 0.1 mg/dl (0-0.2) 08/02/21 AST 19 U/L (15-37) 08/02/21 ALT 16 (12-78) 08/02/21 Alkaline Phosphatase 66 U/L (45-117) 08/02/21 TP 6.2 gm/dl (6.4-8.2) L 08/02/21 Albumin 2.1 gm/dl (3.4-5.0) L 08/02/21 Calcium Level 9.0 mg/dl (8.5-10.1) 08/02/21 06:15 08/02/21 Microbiology 07/30/21 19:55 Aerobic Blood Culture - Final Blood Coag neg staph not lugdunensis Anaerobic Blood Culture - Final 07/30/21 20:02 Aerobic Blood Culture - Preliminary Blood No growth in Aerobic bottle after 48 hours. Anaerobic Blood Culture - Final I & O Totals 24 Hours 08/01/21 08/02/21 08/03/21 06:59 06:59 06:59 Intake Total 1590 / 1590 700 / 700 470 / 470 Output Total 51 / 51 550 / 550 400 / 400 Balance 1539 / 1539 150 / 150 70 / 70 Cumulative 07/30/21 19:07 thru 08/02/21 15:00 Intake Total 4313.333 Output Total 1451 Balance 2862.333 RT Ventilator Mngmt (Last Documented) Ventilator Ordered Settings Respiratory Rate 24 08/02/21 19:15 Fraction of Inspired Oxygen 100 08/02/21 19:15 Ventilator - PT Measurements Respiratory Rate 24 PG Care Time/CCT Total # of Minutes Spent Total Time Spent with Patient: Total time spent is greater than 50% in coordination of care (as documented) at patient's floor/unit and/or counseling patient: Coding Level of Care Code Critical Care 1st 30-74 mins Diagnoses ARDS (adult respiratory distress syndrome) J80 Pneumonia due to COVID-19 virus U07.1; J12.82 Hypoxia R09.02 Time Spent (min) 45
[2021-08-02] MEDS: REMDESIVIR 100 MG in SODIUM CHLORIDE 0.9% 230 ML IV SCH (20:53)
[2021-08-02] MEDS: ENOXAPARIN INJ 40 MG/0.4 ML SYR SQ SCH (20:54)
[2021-08-02] MEDS: SODIUM CHLORIDE 0.9% 10ML FLUSH IV SCH (22:41)
[2021-08-03] MEDS: DOXYCYCLINE HYCLATE 100 MG in DEXTROSE 5% 100 ML IV SCH (00:02)
[2021-08-03 07:00] LABS: Basophils # (auto) 0.03 K/uL (0-0.2); Basophils % (auto) 0.2 %; Hematocrit (blood only) 44.6 % (37-47); Hemoglobin 14.5 g/dL (12.0-16.0); Immature Granulocytes # (auto) 0.27 K/uL (0.00-0.02); Immature Granulocytes % (auto) 2.2 %; Lymphocytes # (auto) 1.43 K/uL (1.2-3.4); Lymphocytes % (auto) 11.5 %; Mean Corpuscular Hemoglobin 28.8 pg (25-34); Mean Corpuscular Hgb Conc 32.5 g/dL (32-36); Mean Corpuscular Volume 88.7 fL (80-100); Mean Platelet Volume 9.9 fL (7.4-10.4); Monocytes # (auto) 0.94 K/uL (0.11-0.59); Monocytes % (auto) 7.5 %; Neutrophils # (auto) 9.79 K/uL (1.4-6.5); Neutrophils % (auto) 78.6 %; Platelet Count 447 K/uL (130-400); RDW Standard Deviation 45.8 fL (36.4-46.3); Red Blood Count 5.03 M/uL (4.2-5.4); White Blood Count 12.46 K/uL (4.8-10.8)
[2021-08-03 07:46] LABS: Albumin Level 2.1 gm/dl (3.4-5.0); BUN Creatinine Ratio 41.2 (10-20); Bilirubin Direct 0.1 mg/dl (0-0.2); Bilirubin,Total 0.5 mg/dl (0.2-1); Creatinine Clr Calc Pharmacy 64.8 ml/min; Est GFR (Non-African American) 82.8 ml/min; Potassium 4.2 mmol/L (3.5-5.1); Total Protein 6.2 gm/dl (6.4-8.2)
[2021-08-03] MEDS ORDERED: FUROSEMIDE INJ 20 MG/2 ML VIAL IV ONE (08:15)
[2021-08-03] MEDS: INSULIN ASPART PER UNIT SC SCH ×4 (08:35→20:07)
[2021-08-03] MEDS: dexAMETHasone 6 MG in SYRINGE 0 ML IV SCH (09:02)
[2021-08-03] MEDS: BARICITINIB 2 MG TAB PO SCH (09:02)
[2021-08-03] MEDS: FLUTICASONE FUROATE 100MCG 14 PUFFS/INHALER INH SCH (09:02)
[2021-08-03] MEDS: guaiFENesin 600 MG TABCR PO SCH (09:02)
[2021-08-03] MEDS: LISINOPRIL/HCTZ 20/12.5MG 1 TAB TAB PO SCH (09:03)
[2021-08-03] MEDS: INSULIN HUMAN NPH SC SCH (09:03)
[2021-08-03] MEDS ORDERED: STAT IV Infusion **Titration per Protocol STA (10:25)
[2021-08-03] MEDS ORDERED: MIDAZOLAM HCL 1 MG/ML 2ML VIAL IV PRN (10:25)
[2021-08-03] MEDS ORDERED: PROPOFOL IV EMULSION 10 MG/ML 20 ML VIAL IV ONE (10:37)
[2021-08-03] MEDS ORDERED: SUCCINYLCHOLINE CHLORIDE 20 MG/ML 10 ML VIAL IV ONE (10:37)
[2021-08-03] MEDS ORDERED: ROCURONIUM BROMIDE 10 MG/ML 5 ML VIAL IV ONE (10:38)
--- NOTE | 2021-08-03 10:42 | Pharmacy Report ---
Pharmacy Glycemic Short Note 2 - Date of Service August 03, 2021 - Glycemic Short BSG Results (Last 24 hours): 08/02/21 08/02/21 08/02/21 11:04 16:56 20:57 Glucose POC Glucose 156 H 91 116 H 08/03/21 08/03/21 05:41 08:06 Glucose 73 POC Glucose 89 OUTPATIENT ANTIDIABETIC REGIMEN: * N/A * A1c = 6.8% on 07/31/21 ASSESSMENT: 08/03: * Patient was intubated this morning and started on Levophed. * BSGs were well controlled the previous few days. * Over the last 24 hours: [id number] mg/dL * Received 30 units NPH + 7 units Novolog yesterday * Fasting BSG was 89 mg/dL this AM * Decreased NPH to 25 units this AM * No changes to Novolog * Will monitor for start of tube feeds as well. 07/31: * 80yo female with steroid induced hyperglycemia. 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 * Pt admitted with COVID-19; receiving dexamethasone 6mg IV daily. Will start weight based NPH for steroid induced hyperglycemia * NPH insulin is used to counteract the hyperglycemic effect of once daily steroids. NPH should be dosed at the same time that steroid is given * The dose of NPH given is dependent on the steroid dose given * For doses of prednisone 40mg/day or equivalent or above NPH dose should be 0.4 units/kg * NPH dosing above is given in addition to patients basal insulin needs * Typically, patients will also need rapid-acting insulin with meals PLAN FOR INPATIENT GLYCEMIC CONTROL: * Basal insulin * NPH 25 units SC daily with dexamethasone (hold if dexamethasone held or DC) * Bolus insulin * NovoLog per scale ACHS or Q6hrs while NPO * Goal Range: Low 120 mg/dL - High 160 mg/dL * Correction Factor: 30 mg/dL/unit * Nutritional / Prandial insulin per carb ratio of 1 unit per 10 grams CHO consumed PLAN FOR DISCHARGE: * Support Patient Self-Management Healthy Lifestyle (diet, exercise, and smoking cessation) Disease self-management (SMBG) Prevention of complications (BP, Lipid goals, Immunizations) Consider outpatient Diabetes Self-Management Education & Support
--- NOTE | 2021-08-03 11:20 | Hospitalist Progress Note ---
Date of Service August 03, 2021 Assessment & Plan (1) Pneumonia due to COVID-19 virus: (2) Hypoxia: Plan: 1. Acute Hypoxic Respiratory Failure secondary to COVID-19 pneumonia 07/31 - 73% on room air, requiring 10 L oxygen. Having symptoms since last Wednesday and Wednesday, 4-5 days. Not vaccinated. - CT chest: (+) pneumonia Procalcitonin negative - on 10 L oxymask - continue Decadron and Remdesivir - Lovenox for DVT prophylaxis 08/01 Transition to high flow O2 Discussed with patient's [id number]-lii over the phone in detail and at length Agreeable to start baricitinib, ordered Continue Decadron remdesivir, continue doxycycline Continue flutter valve, incentive spirometry, proning 08/02 O2 saturation 84 to 88% on high flow 20% FiO2 Discussed with respiratory therapist, plan to transition to CPAP Patient uncomfortable with CPAP, currently maintained on ambulatory oxygen mask Continue Decadron, remdesivir, baricitinib, doxycycline also given Lasix IV 20 mg Continue flutter valve, incentive parameter, proning Discussed with patient's [id number] Dilia over the phone in detail She confirms patient is a full code, including mechanical ventilation She is requesting pulmonary consultation, pulmonary consult placed 08/03 transitioned to Bipap for Mechanical intubation today per Dr. Alvarez Continue with Decadron, remdesivir given Lasix IV 20 mg antibiotics discontinued monitor closely 2. Hyperglycemia - a1c 6.8 - Pharmacy Glycemic consulted 3. Hypokalemia: - 3.4 - replaced 4. Hypertension: Continue her home medication of lisinopril/hydrochlorothiazide 5. Deep venous thrombosis prophylaxis: Lovenox. Admission and Anticipated Discharge Date Admission Date: July 30, 2021 Subjective ff up for acute hypoxic respiratory failure, covid 19 pneumonia, etc seen resting in bed, sitting up, on Bipap patient appears tired, mildly tachypneic no chest pain no other symptoms Review of Systems Review of Systems: all noted and negative except for above Physical Exam Physical Exam: General- alert, breathing with some acc muscle use Eyes- anicteric Neck- no JVD Lungs-(+) crackles anteriorly bilaterally Heart- normal rate, regular rhythm; no murmurs Abdomen- normal bowel sounds, nondistended, soft, nontender Extremities- no pretibial edema, no calf tenderness Neuro- alert, ; no new gross focal neurologic deficits Skin- warm & dry Results & Data Results & Data ([facility]) Vital Signs (Past 12 Hours) Vital Signs Temp Pulse Pulse Resp BP Pulse Ox 08/03/21 11:12 126/92 08/03/21 11:10 89 26 H 94 08/03/21 11:09 69/51 L 08/03/21 11:05 112/73 08/03/21 11:00 89 08/03/21 10:50 75 96 08/03/21 10:40 74 96 08/03/21 10:30 77 31 H 96 08/03/21 07:39 60 08/03/21 07:23 36.8 C 65 37 H 119/67 95 08/03/21 06:34 55 L 30 H 91 08/03/21 04:30 52 L 27 H 150/79 H 90 08/03/21 02:59 50 L 26 H 92 08/03/21 00:21 48 L 23 128/73 92 all noted and reviewed including below
--- NOTE | 2021-08-03 12:22 | Anesthesia Procedure Note ---
Anesthesia Procedure Note Arterial Line Note Date of procedure: 08/03/21 Consent: Risk / Benefits Reviewed With: PT / POA / Parent / Guardian, Accepts Plan, Informed Consent Obtained, All Questions Answered and Emergency Monitors attached: Blood Pressure, CO2, EKG and Pulse Oximetry Oxygen delivery method: ETT Time out completed: Yes Premedication: None Laterality: Right Location: Radial Hand hygeine: Alcohol based hand rub Equipment/Supplies: Cap, Mask, Sterile gown, Sterile gloves, Sterile drapes and Sterile procedures used Skin prep: Chloraprep Ultrasound used: Yes US equipment and supplies: Sterile Probe Cover Attempts: Multiple Post-Procedure: Pt hemodynamically stable, Pt tolerates well and No complication Central Line Note Date of procedure: 08/03/21 Indication: Hemodynamic monitoring Consent: Risk / Benefits Reviewed With: PT / POA / Parent / Guardian, Accepts Plan, Informed Consent Obtained, All Questions Answered and Emergency Monitors attached: Blood Pressure, CO2, EKG and Pulse Oximetry Oxygen delivery method: ETT Premedication: None Laterality: Right Location: Internal Jugular Surgical Prep: Hand hygeine: Alcohol based hand rub Equipment/Supplies: Cap, Mask, Sterile gown, Sterile gloves, Sterile drapes and Sterile procedures used Skin prep: Chloraprep Ultrasound Guidance: Ultrasound used: Yes US equipment and supplies: Sterile Gel and Sterile Probe Cover Central line lumen: Triple Attempts: 1 Procedure Summary: secured with suture and opsite. Antibiotic disc in placed Post-Procedure: Pt hemodynamically stable, Pt tolerates well, No complication and Post placement CXR ordered Intubation Note Date of procedure: 08/03/21 Indication for intubation: Failure to oxygenate and Respiratory distress Consent: Risk / Benefits Reviewed With: PT / POA / Parent / Guardian, Accepts Plan, Informed Consent Obtained and Emergency (verbal consent obtained) Monitors attached: Blood Pressure, CO2, EKG and Pulse Oximetry Time out completed: Yes Premedication: Midazolam (mg) (2) and Propofol (mg) (140) Paralytic medication: Succinylcholine (mg) (200) and Rocuronium (mg) (10 defasic +40mg postintubation) Intubation technique: Adequate preoxygenation, RSI and Cricoid pressure Equipment: Glidescope (3) View: Grade 1 Endotracheal tube: 8.0, with Stylet, Tube secured @ cm (23) and Balloon inflated Attempts: 1 Tube placement confirmation: auscultation and Positive CO2 detection Post-procedure: Pt hemodynamically stable, Pt tolerates well, No complication and Post placement CXR ordered
[2021-08-03] MEDS: propofoL 1,000 MG/100 ML VIAL IV SCH ×2 (12:32→17:54)
[2021-08-03] MEDS: fentaNYL DRIP 1,250 MCG/250 ML BAG IV SCH (12:32)
[2021-08-03 13:21] LABS: Appearance Urine Cloudy (Clear); Bacteria Urine Automated 3+ (Negative); Bilirubin Urine Negative (Negative); Blood Urine 2+ (Negative); Color Urine Yellow; Glucose Urine UA Negative (Negative); Ketones Urine Negative (Negative); Leukocyte Esterase Urine 3+ (Negative); Nitrite Urine Negative (Negative); Protein Urine Negative (Negative); Specific Gravity Urine 1.008 (1.000-1.030); Urobilinogen Urine Negative (Negative); WBC Urine Automated >30 /hpf (0-5); pH Urine 6.5 (4.5-7.5)
--- NOTE | 2021-08-03 13:26 | Critical Care Progress Note ---
Date of Service August 03, 2021 Assessment & Plan (1) ARDS (adult respiratory distress syndrome): (2) Pneumonia due to COVID-19 virus: (3) Hypoxia: Plan: Impression: 80-year-old female with ARDS secondary to Covid pneumonitis. She she is failed conservative management with high flow oxygen and noninvasive positive pressure ventilation and was intubated 08/03/2021 Recommendations: 1. Neuro: Continue sedation with fentanyl Versed and propofol. Hopefully we can avoid the use of neuromuscular blockade. 2. Cardiovascular: Hemodynamically stable. Norepinephrine as needed to maintain mean arterial pressure at 65. BNP of only 316 so hold on additional diuretics. No indication for echocardiogram currently. 3. Pulmonary: Severe ARDS secondary to Covid pneumonitis. Initiate ARDS net high FiO2 low PEEP strategy. Current vent settings assist-control 26/300/12/0.8 with a plateau pressure of 22. Follow-up blood gas pending. We will adjust ventilator accordingly. Continue dexamethasone 6 mg daily. CRP has been downtrending. Discontinue baricitinib given the need for mechanical ventilation. No indication for additional immune suppression currently. Will allow for permissive hypercapnia to try and allow for lower pulmonary distending pressures. 4. Renal: No current issues. Allowing for permissive hypercapnia. Replace electrolytes as needed. Hold on diuretics until we can see how she responds hemodynamically. 5. ID: Covid pneumonitis. Continue dexamethasone. Follow for secondary infection. 6. GI: N.p.o. for now. GI prophylaxis. May consider initiation of enteral nutrition depending on clinical course. 7. Endocrine: Glycemic control per protocol. 8. Heme-onc: No current issues. Continue to follow. DVT prophylaxis per ACC P guidelines. Patient's [id number]-es-eeb was updated by phone prior to intubation mechanical ventilation. Questions were answered to the best my ability. The patient is critically ill with significant possibility of clinical deterioration and . A total of 50 minutes in critical care time was spent in evaluation management stabilization of this patient. Admission and Anticipated Discharge Date Admission Date: July 30, 2021 Subjective Patient seen initially this morning. She progressed to requiring BiPAP but remained significantly tachypneic with respiratory rates in the high 20s low 30s. Discussed with family as the patient deferred intubation discussions to them and they requested that we proceed with intubation mechanical ventilation. She has been intubated by anesthesia. Central lines and arterial lines were placed. Review of Systems Review of Systems: Unobtainable due to endotracheal tube Physical Exam Constitutional: + obese and + mechanically ventilated Neck: trachea midline, no thyromegaly Respiratory: Intubated. Breath sounds are diminished throughout. No wheezing. Few basilar crackles Cardiovascular: RRR, no murmur, no edema Gastrointestinal (Abdomen): normal bowel sounds, soft, nontender, no hepatosplenomegaly Musculoskeletal: Extremities: extremities normal to inspection Skin: no rashes, warm and dry Lymphatic: no cervical lymphadenopathy Results & Data Results & Data ([facility]) Vital Signs (Past 12 Hours) Vital Signs Temp Pulse Pulse Resp BP BP Pulse Ox 08/03/21 13:00 26 H 08/03/21 12:20 84 27 H 96 08/03/21 12:10 79 26 H 95 08/03/21 12:00 75 26 H 96 08/03/21 11:50 77 26 H 94 08/03/21 11:40 77 77 26 H 122/74 122/74 94 08/03/21 11:32 84 26 H 156/86 H 95 08/03/21 11:30 81 26 H 131/82 95 08/03/21 11:20 81 26 H 156/86 H 96 08/03/21 11:19 79 26 H 144/87 H 96 08/03/21 11:12 126/92 08/03/21 11:10 89 26 H 94 08/03/21 11:09 69/51 L 08/03/21 11:05 112/73 08/03/21 11:00 87 26 H 96 08/03/21 10:50 75 96 08/03/21 10:40 74 96 08/03/21 10:30 77 31 H 96 08/03/21 07:39 60 08/03/21 07:23 36.8 C 65 37 H 119/67 95 08/03/21 06:34 55 L 30 H 91 08/03/21 04:30 52 L 27 H 150/79 H 90 08/03/21 02:59 50 L 26 H 92 Critical Care Results & Data Vital Signs (Past 12 Hours) Vital Signs Temp Pulse Pulse Resp BP BP Pulse Ox 08/03/21 13:00 26 H 08/03/21 12:20 84 27 H 96 08/03/21 12:10 79 26 H 95 08/03/21 12:00 75 26 H 96 08/03/21 11:50 77 26 H 94 08/03/21 11:40 77 77 26 H 122/74 122/74 94 08/03/21 11:32 84 26 H 156/86 H 95 08/03/21 11:30 81 26 H 131/82 95 08/03/21 11:20 81 26 H 156/86 H 96 08/03/21 11:19 79 26 H 144/87 H 96 08/03/21 11:12 126/92 08/03/21 11:10 89 26 H 94 08/03/21 11:09 69/51 L 08/03/21 11:05 112/73 08/03/21 11:00 87 26 H 96 08/03/21 10:50 75 96 08/03/21 10:40 74 96 08/03/21 10:30 77 31 H 96 08/03/21 07:39 60 08/03/21 07:23 36.8 C 65 37 H 119/67 95 08/03/21 06:34 55 L 30 H 91 08/03/21 04:30 52 L 27 H 150/79 H 90 08/03/21 02:59 50 L 26 H 92 Lab & Micro Results (Past 24 Hours) RBC 5.03 M/uL (4.2-5.4) 08/03/21 WBC 12.46 K/uL (4.8-10.8) H 08/03/21 Hgb 14.5 g/dL (12.0-16.0) 08/03/21 Hct 44.6 % (37-47) 08/03/21 MCV 88.7 fL (80-100) 08/03/21 MCH 28.8 pg (25-34) 08/03/21 MCHC 32.5 g/dL (32-36) 08/03/21 RDW Standard Deviation 45.8 fL (36.4-46.3) 08/03/21 RDW Coefficient of Variation 14.0 % (11.5-14.5) 08/03/21 Plt Count 447 K/uL (130-400) H 08/03/21 MPV 9.9 fL (7.4-10.4) 08/03/21 Neutrophils (%) (Auto) 78.6 % 08/03/21 Lymphocytes (%) (Auto) 11.5 % 08/03/21 Monocytes # (Auto) 0.94 K/uL (0.11-0.59) H 08/03/21 Eosinophils # (Auto) 0.00 K/uL (0-0.5) 08/03/21 Immature Granulocyte % (Auto) 2.2 % 08/03/21 Neutrophils # (Auto) 9.79 K/uL (1.4-6.5) H 08/03/21 Lymphocytes # (Auto) 1.43 K/uL (1.2-3.4) 08/03/21 Monocytes # (Auto) 0.94 K/uL (0.11-0.59) H 08/03/21 Eosinophils # (Auto) 0.00 K/uL (0-0.5) 08/03/21 Basophils # (Auto) 0.03 K/uL (0-0.2) 08/03/21 Immature Granulocyte # (Auto) 0.27 K/uL (0.00-0.02) H 08/03/21 Na 140 mmol/L (136-145) 08/03/21 K 4.2 mmol/L (3.5-5.1) 08/03/21 Cl 104 mmol/L (98-107) 08/03/21 CO2 30 mmol/L (21-32) 08/03/21 Anion Gap 6.0 (3-11) 08/03/21 BUN 27 mg/dl (7-18) H 08/03/21 Creatinine 0.66 mg/dl (0.6-1.2) 08/03/21 Estimated GFR ( Amer) 96.0 ml/min 08/03/21 Estimated GFR (Non-Af Amer) 82.8 ml/min 08/03/21 BUN/Creatinine Ratio 41.2 (10-20) H 08/03/21 Glu 73 mg/dl (70-99) 08/03/21 Ca 9.0 mg/dl (8.5-10.1) 08/03/21 Total Bilirubin 0.5 mg/dl (0.2-1) 08/03/21 Direct Bilirubin 0.1 mg/dl (0-0.2) 08/03/21 AST 24 U/L (15-37) 08/03/21 ALT 17 (12-78) 08/03/21 Alkaline Phosphatase 66 U/L (45-117) 08/03/21 TP 6.2 gm/dl (6.4-8.2) L 08/03/21 Albumin 2.1 gm/dl (3.4-5.0) L 08/03/21 Calcium Level 9.0 mg/dl (8.5-10.1) 08/03/21 05:41 08/03/21 Microbiology 07/30/21 19:55 Aerobic Blood Culture - Final Blood Coag neg staph not lugdunensis Anaerobic Blood Culture - Final I & O Totals 24 Hours 08/02/21 08/03/21 08/04/21 06:59 06:59 06:59 Intake Total 700 / 700 980 / 980 1.723 / 1.723 Output Total 550 / 550 1000 / 1000 Balance 150 / 150 -20 / -20 1.723 / 1.723 Cumulative 07/30/21 19:07 thru 08/03/21 12:43 Intake Total 4825.056 Output Total 2051 Balance 2774.056 RT Ventilator Mngmt (Last Documented) Ventilator Ordered Settings Ventilator Support Mode Assist Control 08/03/21 13:00 Respiratory Rate 26 08/03/21 13:00 Ventilator Tidal Volume 300 08/03/21 13:00 Setting Minute Ventilation 7.5 08/03/21 11:00 Positive End Expiratory 12 08/03/21 13:00 Pressure Fraction of Inspired Oxygen 80 08/03/21 13:00 Machine Comment FIO2 AND PEEP CHANGED AT THIS 08/03/21 13:00 TIME PER ABG RESULTS Ventilator - PT Measurements Respiratory Rate 26 Exhaled Tidal Volume 300 Minute Ventilation 7.5 Peak Inspiratory Airway 27 Pressure Plateau Pressure 22 Respiratory Cycle Inspiratory: 1:1.9 Expiratory Ratio Inspiratory Phase Time 0.8 End-Tidal CO2 31 Static Lung Compliance 25.00 Dynamic Lung Compliance 17.65 Normal Static Lung Compliance 45.00 Coding Level of Care Code Critical Care 1st 30-74 mins Diagnoses ARDS (adult respiratory distress syndrome) J80 Pneumonia due to COVID-19 virus U07.1; J12.82 Hypoxia R09.02 Time Spent (min) 50
[2021-08-03] MEDS ORDERED: ICU PROTOCOL FOR HYPERGLYCEMIA PRN (13:28)
[2021-08-03 13:30] LABS: iSTAT Arterial Blood Gas HCO3 31 meg/L (19-24); iSTAT Arterial Blood Gas pCO2 44 mmHg (35-46); iSTAT Arterial Blood Gas pH 7.45 (7.35-7.45); iSTAT Arterial Blood Gas pO2 112 mmHg (80-95); iSTAT Carbon Dioxide 32 mmol/L (24-31); iSTAT FiO2 80 %; iSTAT Site Art Line
--- NOTE | 2021-08-03 13:45 | XRay Report ---
XR chest 1V portable CLINICAL HISTORY: s/p intubation/CVC placement TECHNIQUE: Single frontal radiograph of the chest was obtained. Comparison: Comparison is made to chest one view February 2021 FINDINGS: Endotracheal tube is at the anita. An enteric tube tip and side-port are below the diaphragm. Right IJ catheter tip terminates in the cavoatrial junction. The cardiomediastinal silhouette is normal. Bi lateral lower lung predominant airspace opacities are seen. No evidence of pleural effusion or pneumo thorax. IMPRESSION: 1. Bilateral lower lung predominant airspace opacities which may represent atelectasis, pneumonia, a nd/or aspiration. 2. Endotracheal tube tip is at the anita. Recommend withdrawal approximately 3 cm for improved posi tioning. ACT 112: Negative or not required by law. Electronically signed by: Derek Tomas M.D. 08/03/2021 1:44 PM
[2021-08-03] MEDS: PEPTAMEN INTENSE VHP 1.0 CAL 1,000 ML BAG OG SCH (18:01)
[2021-08-03] MEDS: ICU ELECTROLYTE REPLACEMENT PROTOCOL SCH (18:40)
[2021-08-03] MEDS: ENOXAPARIN INJ 40 MG/0.4 ML SYR SQ SCH (20:08)
[2021-08-03] MEDS: NOREPINEPHRINE/D5W 8 MG/508 ML BAG IV SCH (20:24)
[2021-08-03] MEDS ORDERED: Nursing to Pharmacy Communication SCH (22:15)
[2021-08-03] MEDS: SODIUM CHLORIDE 0.9% 10ML FLUSH IV SCH (23:50)
[2021-08-04] MEDS: INSULIN ASPART PER UNIT SC SCH ×6 (00:31→23:47)
[2021-08-04] MEDS: propofoL 1,000 MG/100 ML VIAL IV SCH ×5 (02:30→23:03)
[2021-08-04 03:53] LABS: iSTAT Arterial Blood Gas HCO3 29 meg/L (19-24); iSTAT Arterial Blood Gas pCO2 41 mmHg (35-46); iSTAT Arterial Blood Gas pH 7.45 (7.35-7.45); iSTAT Arterial Blood Gas pO2 65 mmHg (80-95); iSTAT Carbon Dioxide 30 mmol/L (24-31); iSTAT FiO2 40 %; iSTAT Site Art Line
[2021-08-04] MEDS: fentaNYL DRIP 1,250 MCG/250 ML BAG IV SCH ×2 (06:44→18:18)
[2021-08-04 07:17] LABS: Hematocrit (blood only) 43.4 % (37-47); Hemoglobin 14.3 g/dL (12.0-16.0); Mean Corpuscular Hemoglobin 28.9 pg (25-34); Mean Corpuscular Hgb Conc 32.9 g/dL (32-36); Mean Corpuscular Volume 87.9 fL (80-100); Mean Platelet Volume 9.7 fL (7.4-10.4); Platelet Count 620 K/uL (130-400); RDW Coefficient of Variation 14.1 % (11.5-14.5); RDW Standard Deviation 45.6 fL (36.4-46.3); Red Blood Count 4.94 M/uL (4.2-5.4); White Blood Count 17.28 K/uL (4.8-10.8)
[2021-08-04 07:35] LABS: Potassium 3.8 mmol/L (3.5-5.1)
[2021-08-04 07:36] LABS: Basophils # (auto) 0.05 K/uL (0-0.2); Basophils % (auto) 0.3 %; Eosinophils # (auto) 0.01 K/uL (0-0.5); Eosinophils % (auto) 0.1 %; Immature Granulocytes # (auto) 0.81 K/uL (0.00-0.02); Immature Granulocytes % (auto) 4.7 %; Lymphocytes # (auto) 2.06 K/uL (1.2-3.4); Lymphocytes % (auto) 11.9 %; Monocytes # (auto) 1.01 K/uL (0.11-0.59); Monocytes % (auto) 5.8 %; Neutrophils # (auto) 13.34 K/uL (1.4-6.5); Neutrophils % (auto) 77.2 %
[2021-08-04 07:40] LABS: Albumin Level 2.1 gm/dl (3.4-5.0); BUN Creatinine Ratio 40.2 (10-20); Bilirubin Direct 0.1 mg/dl (0-0.2); Calcium 8.6 mg/dl (8.5-10.1); Creatinine Clr Calc Pharmacy 49.8 ml/min; Est GFR (African American) 76.6 ml/min; Est GFR (Non-African American) 66.1 ml/min; Magnesium 2.3 mg/dl (1.8-2.4)
[2021-08-04 07:43] LABS: Bilirubin,Total 0.5 mg/dl (0.2-1); Phosphorus 4.3 mg/dl (2.5-4.9); Total Protein 6.3 gm/dl (6.4-8.2)
[2021-08-04] MEDS: dexAMETHasone 6 MG in SYRINGE 0 ML IV SCH (09:44)
[2021-08-04] MEDS: INSULIN HUMAN NPH SC SCH (09:45)
[2021-08-04] MEDS: FAMOTIDINE 20 MG in SYRINGE 3 ML IV SCH ×2 (12:18→23:47)
--- NOTE | 2021-08-04 17:05 | Hospitalist Progress Note ---
Date of Service August 04, 2021 Assessment & Plan (1) Pneumonia due to COVID-19 virus: (2) Hypoxia: Plan: 1. Acute Hypoxic Respiratory Failure secondary to COVID-19 pneumonia 07/31 - 73% on room air, requiring 10 L oxygen. Having symptoms since last Wednesday and Wednesday, 4-5 days. Not vaccinated. - CT chest: (+) pneumonia Procalcitonin negative - on 10 L oxymask - continue Decadron and Remdesivir - Lovenox for DVT prophylaxis 08/01 Transition to high flow O2 Discussed with patient's [id number] over the phone in detail and at length Agreeable to start baricitinib, ordered Continue Decadron remdesivir, continue doxycycline Continue flutter valve, incentive spirometry, proning 08/02 O2 saturation 84 to 88% on high flow 20% FiO2 Discussed with respiratory therapist, plan to transition to CPAP Patient uncomfortable with CPAP, currently maintained on ambulatory oxygen mask Continue Decadron, remdesivir, baricitinib, doxycycline also given Lasix IV 20 mg Continue flutter valve, incentive parameter, proning Discussed with patient's sbynelbq-yi-ffc Dilia over the phone in detail She confirms patient is a full code, including mechanical ventilation She is requesting pulmonary consultation, pulmonary consult placed 08/03 transitioned to Bipap for Mechanical intubation today per Dr. Alvarez Continue with Decadron, remdesivir given Lasix IV 20 mg antibiotics discontinued monitor closely 08/04 [facility] vent day #2 FiO2 40%, PEEP of 8 Remains on Levophed Ventilator management per ICU team No other symptoms 2. Hyperglycemia - a1c 6.8 - Pharmacy Glycemic consulted 3. Hypokalemia: - replaced 4. Hypertension: Continue her home medication of lisinopril/hydrochlorothiazide 5. Deep venous thrombosis prophylaxis: Lovenox. Admission and Anticipated Discharge Date Admission Date: July 30, 2021 Subjective Follow-up for acute hypoxic respiratory failure, COVID-19 pneumonia, etc. Sedated, intubated Not in distress No signs of respiratory distress, pain No other issues per pulp mixer of Systems Review of Systems: all noted and negative except for above Physical Exam Physical Exam: General-sedated, intubated, breathing with no accessory muscle use or effort Eyes- anicteric Neck- no JVD Lungs-positive mild rhonchi bilaterally anteriorly Heart- normal rate, regular rhythm; no murmurs Abdomen- normal bowel sounds, nondistended, soft, nontender Extremities- no pretibial edema, no calf tenderness Neuro-sedated Skin- warm & dry Results & Data Results & Data ([facility]) Vital Signs (Past 12 Hours) Vital Signs Pulse Resp Pulse Ox Pulse Ox 08/04/21 16:00 64 08/04/21 14:00 64 26 H 92 08/04/21 13:29 92 08/04/21 13:28 68 08/04/21 11:10 68 29 H 90 08/04/21 11:00 58 L 26 H 91 08/04/21 10:30 60 26 H 91 08/04/21 10:00 63 26 H 89 L 08/04/21 09:30 59 L 26 H 93 08/04/21 09:00 58 L 26 H 93 08/04/21 08:30 59 L 26 H 93 08/04/21 08:00 57 L 26 H 93 08/04/21 07:30 59 L 26 H 91 08/04/21 07:19 62 26 H 92 08/04/21 07:00 60 26 H 92 08/04/21 06:30 61 26 H 91 08/04/21 06:00 55 L 26 H 91 08/04/21 05:30 66 93 all noted and reviewed including below
--- NOTE | 2021-08-04 18:03 | Critical Care Progress Note ---
Date of Service August 04, 2021 Assessment & Plan (1) ARDS (adult respiratory distress syndrome): (2) Pneumonia due to COVID-19 virus: (3) Hypoxia: Plan: Impression: 80-year-old female with ARDS secondary to Covid pneumonitis. She failed conservative management with high flow oxygen and noninvasive positive pressure ventilation and was intubated 08/03/2021. She awakens to command. She describes no acute distress. She is tolerating mechanical ventilation without bucking and is not requiring neuromuscular blockade. Recommendations: 1. Neuro: Continue sedation with fentanyl Versed and propofol. Hopefully we can avoid the use of neuromuscular blockade. Opens eyes to command. Follows simple commands. 2. Cardiovascular: Hemodynamically stable. Continues to require Norepinephrine at 0.03. Maintain mean arterial pressure at 65. BNP was not elevated. No indication for echocardiogram. 3. Pulmonary: Severe ARDS secondary to Covid pneumonitis. Initiate ARDS net high FiO2 low PEEP strategy. Current vent settings assist-control 26/300/8/0.4 with a plateau pressure of 22. Continue dexamethasone 6 mg daily. CRP 6.63. Discontinue baricitinib given the need for mechanical ventilation. No indication for additional immune suppression currently. Will allow for permissive hypercapnia to try and allow for lower pulmonary distending pressures. PCO2 today 41 mmHg. pH 7.45 4. Renal: No current issues. Allow for permissive hypercapnia. Currently no hypercapnia. Replace electrolytes as needed per ICU replacement protocol. Hold on diuretics. Patient currently requiring norepinephrine. 5. ID: Covid pneumonitis. Continue dexamethasone at 6 mg IV daily. Follow for secondary infection. Procalcitonin is negative 6. GI: N.p.o. for now. GI prophylaxis. May consider initiation of enteral nutrition depending on clinical course. 7. Endocrine: Glycemic control per protocol. Currently no indication for insulin drip 8. Heme-onc: No current issues. Continue to follow. DVT prophylaxis per ACC P guidelines using enoxaparin 40 mg subcutaneously daily Patient's kpddlqhx-xw-qes [place] was updated by phone from 18:10 to 18:25. Questions were answered to the best my ability. The patient is critically ill with significant possibility of clinical deterioration and . A total of 45 minutes in critical care time was spent in evaluation management stabilization of this patient. Admission and Anticipated Discharge Date Admission Date: July 30, 2021 Subjective Attending: Dr. Alvarez Patient seen and examined in bed 206. She continues to be endotracheally intubated and on mechanical ventilation. She opens her eyes to commands. She does follow simple commands as well. She is able to give me differentiated thumbs up from right and left hand. She nods her head yes and shakes her head no. She denies any acute distress. She denies sore throat. She denies any shortness of breath on the ventilator. Heart rate is stable in the 60s. Blood pressure is also stable at 109/58. The patient seems to understand that she is intubated for Covid and is mechanically ventilated. Review of Systems Review of Systems: Patient able to follow simple commands. She denies fever, chills, sweats, rigors. She has no sore throat. She denies shortness of breath. She does all this with head nod and head shake and is much as she is intubated and mechanically ventilated. Physical Exam Physical Exam: GENERAL : Minimal distress. Currently not bucking the vent and not using accessory muscles. EYES: No icterus, gaze conjugate. Patient opens eyes to command. Tracks appropriately. NOSE: No evidence of epistaxis MOUTH: Endotracheal tube and orogastric tube in place and secure NECK: Supple LUNGS: Bibasilar crackles. [place] appear to be clear. Patient takes deep breath on ventilator to command HEART: Regular, rate controlled in the 60s ABDOMEN: Soft, NT, ND, BS Present EXTREMITIES: No LE edema, pedal pulses intact and equal bilaterally NEURO: Awakens to command. Opens eyes. Tracks with eyes. Gives right and left thumbs up per direction. Moves all extremities. Mechanically ventilated. Results & Data Results & Data ([facility]) Vital Signs (Past 12 Hours) Vital Signs Pulse Resp Pulse Ox Pulse Ox 08/04/21 16:00 64 08/04/21 14:00 64 26 H 92 08/04/21 13:29 92 08/04/21 13:28 68 08/04/21 11:10 68 29 H 90 08/04/21 11:00 58 L 26 H 91 08/04/21 10:30 60 26 H 91 08/04/21 10:00 63 26 H 89 L 08/04/21 09:30 59 L 26 H 93 08/04/21 09:00 58 L 26 H 93 08/04/21 08:30 59 L 26 H 93 08/04/21 08:00 57 L 26 H 93 08/04/21 07:30 59 L 26 H 91 08/04/21 07:19 62 26 H 92 08/04/21 07:00 60 26 H 92 08/04/21 06:30 61 26 H 91 08/04/21 06:00 55 L 26 H 91 Laboratory Results 08/04/21 06:20 08/04/21 06:20 Critical Care Results & Data Vital Signs (Past 12 Hours) Vital Signs Pulse Resp Pulse Ox Pulse Ox 08/04/21 16:00 64 08/04/21 14:00 64 26 H 92 08/04/21 13:29 92 08/04/21 13:28 68 08/04/21 11:10 68 29 H 90 08/04/21 11:00 58 L 26 H 91 08/04/21 10:30 60 26 H 91 08/04/21 10:00 63 26 H 89 L 08/04/21 09:30 59 L 26 H 93 08/04/21 09:00 58 L 26 H 93 08/04/21 08:30 59 L 26 H 93 08/04/21 08:00 57 L 26 H 93 08/04/21 07:30 59 L 26 H 91 08/04/21 07:19 62 26 H 92 08/04/21 07:00 60 26 H 92 08/04/21 06:30 61 26 H 91 08/04/21 06:00 55 L 26 H 91 Lab & Micro Results (Past 24 Hours) RBC 4.94 M/uL (4.2-5.4) 08/04/21 WBC 17.28 K/uL (4.8-10.8) H 08/04/21 Hgb 14.3 g/dL (12.0-16.0) 08/04/21 Hct 43.4 % (37-47) 08/04/21 MCV 87.9 fL (80-100) 08/04/21 MCH 28.9 pg (25-34) 08/04/21 MCHC 32.9 g/dL (32-36) 08/04/21 RDW Standard Deviation 45.6 fL (36.4-46.3) 08/04/21 RDW Coefficient of Variation 14.1 % (11.5-14.5) 08/04/21 Plt Count 620 K/uL (130-400) H 08/04/21 MPV 9.7 fL (7.4-10.4) 08/04/21 Neutrophils (%) (Auto) 77.2 % 08/04/21 Lymphocytes (%) (Auto) 11.9 % 08/04/21 Monocytes # (Auto) 1.01 K/uL (0.11-0.59) H 08/04/21 Eosinophils # (Auto) 0.01 K/uL (0-0.5) 08/04/21 Immature Granulocyte % (Auto) 4.7 % 08/04/21 Neutrophils # (Auto) 13.34 K/uL (1.4-6.5) H 08/04/21 Lymphocytes # (Auto) 2.06 K/uL (1.2-3.4) 08/04/21 Monocytes # (Auto) 1.01 K/uL (0.11-0.59) H 08/04/21 Eosinophils # (Auto) 0.01 K/uL (0-0.5) 08/04/21 Basophils # (Auto) 0.05 K/uL (0-0.2) 08/04/21 Immature Granulocyte # (Auto) 0.81 K/uL (0.00-0.02) H 08/04/21 Na 137 mmol/L (136-145) 08/04/21 K 3.8 mmol/L (3.5-5.1) 08/04/21 Cl 101 mmol/L (98-107) 08/04/21 CO2 28 mmol/L (21-32) 08/04/21 Anion Gap 8.0 (3-11) 08/04/21 BUN 33 mg/dl (7-18) H 08/04/21 Creatinine 0.83 mg/dl (0.6-1.2) 08/04/21 Estimated GFR ( Amer) 76.6 ml/min 08/04/21 Estimated GFR (Non-Af Amer) 66.1 ml/min 08/04/21 BUN/Creatinine Ratio 40.2 (10-20) H 08/04/21 Glu 132 mg/dl (70-99) H 08/04/21 Ca 8.6 mg/dl (8.5-10.1) 08/04/21 Phosphorus Level 4.3 mg/dl (2.5-4.9) 08/04/21 Total Bilirubin 0.5 mg/dl (0.2-1) 08/04/21 Direct Bilirubin 0.1 mg/dl (0-0.2) 08/04/21 AST 25 U/L (15-37) 08/04/21 ALT 17 (12-78) 08/04/21 Alkaline Phosphatase 67 U/L (45-117) 08/04/21 TP 6.3 gm/dl (6.4-8.2) L 08/04/21 Albumin 2.1 gm/dl (3.4-5.0) L 08/04/21 Mg 2.3 mg/dl (1.8-2.4) 08/04/21 06:20 08/04/21 Calcium Level 8.6 mg/dl (8.5-10.1) 08/04/21 06:20 08/04/21 Christofer Test NA 08/04/21 03:39 08/04/21 Microbiology 08/03/21 16:00 Gram Stain - Final Sputum,Vent Suction Sputum Culture - Preliminary Light normal wiliam present, final report to follow. 08/03/21 12:40 Urine Culture - Preliminary Urine,Straight Cath Gram negative bacilli I & O Totals 24 Hours 08/03/21 08/04/21 08/05/21 06:59 06:59 06:59 Intake Total 980 / 980 528.036 / 528.036 271.133 / 271.133 Output Total 1000 / 1000 1626 / 1626 300 / 300 Balance -20 / -20 -1097.964 / -1097.964 -28.867 / -28.867 Cumulative 07/30/21 19:07 thru 08/04/21 15:46 Intake Total 5622.502 Output Total 3977 Balance 1645.502 RT Ventilator Mngmt (Last Documented) Ventilator Ordered Settings Ventilator Support Mode Assist Control 08/04/21 16:00 Respiratory Rate 26 08/04/21 14:00 Ventilator Tidal Volume 300 08/04/21 16:00 Setting Minute Ventilation 7.6 08/04/21 14:00 Positive End Expiratory 8 08/04/21 16:00 Pressure Fraction of Inspired Oxygen 40 08/04/21 16:00 Machine Comment following ardsnet chart per Ruff 08/04/21 02:56 Ventilator - PT Measurements Respiratory Rate 26 Exhaled Tidal Volume 280 Minute Ventilation 7.6 Peak Inspiratory Airway 22 Pressure Plateau Pressure 21 Respiratory Cycle Inspiratory: 1:1.9 Expiratory Ratio Inspiratory Phase Time 0.8 End-Tidal CO2 31 Static Lung Compliance 23.08 Dynamic Lung Compliance 20.00 Normal Static Lung Compliance 45.00 Patient Measurements Comment Found pt ett at 21 lip, volumes and spo2 good Coding Level of Care Code Critical Care 1st 30-74 mins Diagnoses ARDS (adult respiratory distress syndrome) J80 Pneumonia due to COVID-19 virus U07.1; J12.82 Hypoxia R09.02 Time Spent (min) 45
--- NOTE | 2021-08-04 19:28 | XRay Report ---
XR chest 1V portable HISTORY: 80 years-old Female resp failure acute respiratory failure COMPARISON: Chest radiograph 08/03/2021, CTA chest 07/31/2021 TECHNIQUE: Portable AP view of the chest FINDINGS: Cardiomediastinal and hilar silhouettes are unchanged. The endotracheal tube overlies the midline, 1. 4 cm superior to the anita. Dual-lumen the right IJ hemodialysis catheter distal tip projects over t he right atrium. Enteric tube courses below the diaphragm with distal tip outside the [id number]. No pneumothorax. There are small bilateral pleural effusions. Interstitial coarsening with ill-define d patchy bilateral airspace opacities are redemonstrated. No acute fracture. IMPRESSION: 1. Lines and tubes as above. 2. Unchanged appearance of the multifocal pneumonia. 3. No pneumothorax. 4. Small pleural effusions. ACT 112: Negative or not required by law. The above report was generated using voice recognition software. It may contain grammatical, syntax o r spelling errors. Electronically signed by: Freddy Miramontes M.D. 08/04/2021 7:27 PM
[2021-08-04] MEDS: ICU ELECTROLYTE REPLACEMENT PROTOCOL SCH ×2 (20:17→20:18)
[2021-08-04] MEDS: NOREPINEPHRINE/D5W 8 MG/508 ML BAG IV SCH (20:17)
[2021-08-04] MEDS: ENOXAPARIN INJ 40 MG/0.4 ML SYR SQ SCH (20:19)
[2021-08-04] MEDS: PROPOFOL BOLUS FROM BAG IV PRN (21:56)
[2021-08-05 03:30] LABS: iSTAT Arterial Blood Gas HCO3 26 meg/L (19-24); iSTAT Arterial Blood Gas pCO2 44 mmHg (35-46); iSTAT Arterial Blood Gas pH 7.38 (7.35-7.45); iSTAT Arterial Blood Gas pO2 80 mmHg (80-95); iSTAT Carbon Dioxide 27 mmol/L (24-31); iSTAT FiO2 40 %; iSTAT Site Art Line
[2021-08-05] MEDS: INSULIN ASPART PER UNIT SC SCH ×5 (03:41→20:10)
[2021-08-05 06:04] LABS: Hematocrit (blood only) 41.4 % (37-47); Hemoglobin 13.5 g/dL (12.0-16.0); Mean Corpuscular Hemoglobin 28.8 pg (25-34); Mean Corpuscular Hgb Conc 32.6 g/dL (32-36); Mean Corpuscular Volume 88.3 fL (80-100); Mean Platelet Volume 9.4 fL (7.4-10.4); Platelet Count 537 K/uL (130-400); RDW Coefficient of Variation 14.1 % (11.5-14.5); RDW Standard Deviation 45.6 fL (36.4-46.3); Red Blood Count 4.69 M/uL (4.2-5.4); White Blood Count 19.76 K/uL (4.8-10.8)
[2021-08-05] MEDS: fentaNYL DRIP 1,250 MCG/250 ML BAG IV SCH ×4 (06:07→21:33)
[2021-08-05] MEDS: propofoL 1,000 MG/100 ML VIAL IV SCH ×5 (06:07→21:32)
[2021-08-05] MEDS: PEPTAMEN INTENSE VHP 1.0 CAL 1,000 ML BAG OG SCH (06:07)
[2021-08-05 06:36] LABS: Magnesium 2.4 mg/dl (1.8-2.4)
[2021-08-05 06:43] LABS: BUN Creatinine Ratio 52.5 (10-20); Basophils # (auto) 0.04 K/uL (0-0.2); Basophils % (auto) 0.2 %; Bilirubin Direct 0.1 mg/dl (0-0.2); Bilirubin,Total 0.3 mg/dl (0.2-1); Calcium 8.5 mg/dl (8.5-10.1); Eosinophils # (auto) 0.02 K/uL (0-0.5); Eosinophils % (auto) 0.1 %; Est GFR (Non-African American) 78.5 ml/min; Immature Granulocytes # (auto) 0.91 K/uL (0.00-0.02); Immature Granulocytes % (auto) 4.6 %; Lymphocytes # (auto) 1.44 K/uL (1.2-3.4); Lymphocytes % (auto) 7.3 %; Monocytes # (auto) 1.02 K/uL (0.11-0.59); Monocytes % (auto) 5.2 %; Neutrophils # (auto) 16.33 K/uL (1.4-6.5); Neutrophils % (auto) 82.6 %; Potassium 3.8 mmol/L (3.5-5.1); Total Protein 5.9 gm/dl (6.4-8.2)
[2021-08-05 06:51] LABS: Phosphorus 3.1 mg/dl (2.5-4.9)
[2021-08-05] MEDS: dexAMETHasone 6 MG in SYRINGE 0 ML IV SCH (08:18)
[2021-08-05] MEDS: INSULIN HUMAN NPH SC SCH (08:57)
[2021-08-05] MEDS: ICU ELECTROLYTE REPLACEMENT PROTOCOL SCH ×2 (09:23→17:29)
[2021-08-05] MEDS: POTASSIUM CHLORIDE 20 MEQ/15 ML UDC PO SCH ×2 (12:03→16:25)
[2021-08-05] MEDS: cefTRIAXone SODIUM 1,000 MG in DEXTROSE 5% 50 ML IV SCH (12:03)
[2021-08-05] MEDS: FAMOTIDINE 20 MG in SYRINGE 3 ML IV SCH (12:03)
--- NOTE | 2021-08-05 15:36 | Hospitalist Progress Note ---
Date of Service August 05, 2021 Assessment & Plan (1) Pneumonia due to COVID-19 virus: (2) Hypoxia: Plan: 1. Acute Hypoxic Respiratory Failure secondary to COVID-19 pneumonia 07/31 - 73% on room air, requiring 10 L oxygen. Having symptoms since last Wednesday and Wednesday, 4-5 days. Not vaccinated. - CT chest: (+) pneumonia Procalcitonin negative - on 10 L oxymask - continue Decadron and Remdesivir - Lovenox for DVT prophylaxis 08/01 Transition to high flow O2 Discussed with patient's [id number] over the phone in detail and at length Agreeable to start baricitinib, ordered Continue Decadron remdesivir, continue doxycycline Continue flutter valve, incentive spirometry, proning 08/02 O2 saturation 84 to 88% on high flow 20% FiO2 Discussed with respiratory therapist, plan to transition to CPAP Patient uncomfortable with CPAP, currently maintained on ambulatory oxygen mask Continue Decadron, remdesivir, baricitinib, doxycycline also given Lasix IV 20 mg Continue flutter valve, incentive parameter, proning Discussed with patient's [id number] Dilia over the phone in detail She confirms patient is a full code, including mechanical ventilation She is requesting pulmonary consultation, pulmonary consult placed 08/03 transitioned to Bipap for Mechanical intubation today per Dr. Alvarez Continue with Decadron, remdesivir given Lasix IV 20 mg antibiotics discontinued [facility]%, PEEP of 8 Remains on Levophed Ventilator management per ICU team No other symptoms 08/05 Mech vent day #3 Off Levophed On spontaneous breathing trial Ventilator management per ICU team No other symptoms 2. Hyperglycemia - a1c 6.8 - Pharmacy Glycemic consulted 3. Hypokalemia: - replaced 4. Hypertension: Continue her home medication of lisinopril/hydrochlorothiazide 5. Deep venous thrombosis prophylaxis: Lovenox. Admission and Anticipated Discharge Date Admission Date: July 30, 2021 Subjective Follow-up for acute hypoxic respiratory failure, COVID-19 pneumonia, etc. Intubated, sedated Seems somewhat awake Not in distress, no signs of pain No other symptoms or signs noted Review of Systems Review of Systems: all noted and negative except for above Physical Exam Physical Exam: General-on the ventilator, breathing with no effort or accessory muscle use Eyes- anicteric Neck- no JVD ET tube in place Lungs-mild crackles bilaterally, anteriorly Heart- normal rate, regular rhythm; no murmurs Abdomen- normal bowel sounds, nondistended, soft, nontender Extremities- no pretibial edema, no calf tenderness Neuro-sedated Skin- warm & dry Results & Data Results & Data ([facility]) Vital Signs (Past 12 Hours) Vital Signs Temp Pulse Resp BP Pulse Ox 08/05/21 12:30 37.8 C H 79 16 92 08/05/21 12:20 37.8 C H 79 15 91 08/05/21 12:10 37.8 C H 85 27 H 88 L 08/05/21 12:00 37.8 C H 85 19 91 08/05/21 11:50 37.8 C H 87 13 91 08/05/21 11:40 37.8 C H 88 10 L 91 08/05/21 11:36 86 15 90 08/05/21 11:30 37.8 C H 90 25 H 90 08/05/21 11:20 37.7 C H 88 23 90 08/05/21 11:10 37.6 C H 89 21 91 08/05/21 11:00 37.6 C H 87 23 90 08/05/21 10:50 37.6 C H 90 18 91 08/05/21 10:40 37.6 C H 90 21 90 08/05/21 10:30 37.6 C H 90 25 H 89 L 08/05/21 10:20 37.7 C H 90 23 89 L 08/05/21 10:10 37.6 C H 94 H 24 91 08/05/21 10:00 37.6 C H 93 H 22 90 08/05/21 09:50 37.6 C H 89 25 H 90 08/05/21 09:40 37.7 C H 91 H 23 91 08/05/21 09:30 37.7 C H 100 H 17 90 08/05/21 09:20 37.7 C H 84 27 H 90 08/05/21 09:10 37.7 C H 91 H 21 88 L 08/05/21 09:00 37.7 C H 82 28 H 89 L 08/05/21 08:45 37.7 C H 80 30 H 113/67 90 08/05/21 08:30 37.6 C H 84 18 89 L 08/05/21 08:15 37.6 C H 80 22 113/71 89 L 08/05/21 08:00 37.6 C H 73 20 90 08/05/21 07:45 37.6 C H 77 23 127/73 89 L 08/05/21 07:37 72 30 H 91 08/05/21 07:30 37.6 C H 69 26 H 92 08/05/21 07:15 37.6 C H 72 24 117/68 92 08/05/21 07:00 37.6 C H 74 23 91 08/05/21 06:10 37.4 C 74 28 H 90 08/05/21 06:00 37.4 C 81 25 H 92 08/05/21 05:50 72 23 92 08/05/21 05:40 66 28 H 93 08/05/21 05:30 65 28 H 93 08/05/21 05:20 37.1 C 65 27 H 93 08/05/21 05:10 65 26 H 93 08/05/21 05:00 64 27 H 93 08/05/21 04:50 66 28 H 93 08/05/21 04:40 64 20 93 08/05/21 04:30 37 C 63 26 H 92 08/05/21 04:20 64 27 H 92 08/05/21 04:10 63 29 H 92 08/05/21 04:00 65 29 H 92 08/05/21 03:50 63 28 H 92 08/05/21 03:40 62 26 H 91 all noted and reviewed including below
--- NOTE | 2021-08-05 16:39 | Critical Care Progress Note ---
Date of Service August 05, 2021 Assessment & Plan (1) ARDS (adult respiratory distress syndrome): (2) Pneumonia due to COVID-19 virus: (3) Hypoxia: Plan: Impression: 80-year-old female with ARDS secondary to Covid pneumonitis. She failed conservative management with high flow oxygen and noninvasive positive pressure ventilation and was intubated 08/03/2021. She awakens to command. She describes no acute distress. She is tolerating mechanical ventilation without bucking and is not requiring neuromuscular blockade. Previous 24 hours: Patient doing significantly better. She is on CPAP most of the day today 5/5 FiO2 40%. She is alert and oriented. Adequate urine output at 45 mL/h throughout the day today. Started on ceftriaxone today for E. coli UTI resistant to quinolones and Bactrim. Otherwise doing well. Afebrile. Recommendations: 1. Neuro: Continue sedation with fentanyl and propofol 10 mcg. Midazolam stopped. Wean completely prior to tomorrow morning for spontaneous breathing trial. Patient did not require neuromuscular blockade. Alert and oriented and follows commands 2. Cardiovascular: Hemodynamically stable. Norepinephrine at 0.03. Maintain mean arterial pressure at 65. BNP was not elevated. No indication for echocardiogram. 3. Pulmonary: Severe ARDS secondary to Covid pneumonitis. Initiated ARDS net high FiO2 low PEEP strategy. Currently patient has been able to be weaned off the vent and is currently on CPAP 5/5 with FiO2 at .40. We will plan on converting back to assist-control tonight at 7 PM. Wean off sedation by tomorrow morning and attempt extubation if patient is doing well. Continue dexamethasone 6 mg daily. Baricitinib was initiated and then discontinue when patient was ventilated. Hopefully, we can extubate the patient tomorrow. Family called and updated with full report at 1630 4. Renal: No current issues. Allow for permissive hypercapnia. Currently no hypercapnia. Replace electrolytes as needed per ICU replacement protocol. Hold on diuretics. Patient currently requiring norepinephrine. 5. ID: Covid pneumonitis. Continue dexamethasone at 6 mg IV daily. Follow for secondary infection. Urine culture grew out E. coli resistance to wiliam quinolones and Bactrim. Started on ceftriaxone 08/05/2021 6. GI: N.p.o. for now. GI prophylaxis. May consider initiation of enteral nutrition depending on clinical course. Hopefully patient will be extubated tomorrow and we can resume p.o. intake. 7. Endocrine: Glycemic control per protocol. Currently no indication for insulin drip 8. Heme-onc: No current issues. Continue to follow. DVT prophylaxis per ACC P guidelines using enoxaparin 40 mg subcutaneously daily Patient's [id number] Dilia Monte was updated by phone today at 16:30. Questions were answered to the best my ability. Family seems satisfied that the patient is headed in the right direction. The patient is critically ill with significant possibility of clinical deterioration and . A total of 55 minutes in critical care time was spent in evaluation management stabilization of this patient. Admission and Anticipated Discharge Date Admission Date: July 30, 2021 Subjective Attending: Dr. Alvarez Patient seen and examined in room 206. Sedation has been weaned off and is now minimal with propofol. Patient alert and oriented and following commands. She is tolerating endotracheal tube. She denies any pain or shortness of breath. She currently is on pressure support of 5/5. FiO2 was 35%. This was increased to 40% once patient was taken off assist-control. T-max over last 24 hours of 37.8 C. She is alert and oriented. She is not sure if she is extubated whether she would want to be reintubated. We will continue on CPAP during the day and rest overnight. Possible extubation tomorrow morning. Review of Systems Review of Systems: All systems reviewed & are unremarkable except as noted in Subjective Physical Exam Physical Exam: GENERAL : Continues on mechanical ventilation. Sedation weaned down. Currently on propofol low-dose. And 50 mcg of fentanyl per hour. EYES: No icterus, gaze conjugate NOSE: No evidence of epistaxis MOUTH: No lesions or candidiasis. Endotracheal tube and orogastric tube in tact and secure. NECK: Supple LUNGS: Good inspirational effort on the vent. Pulling tidal volumes over 700. HEART: Regular, rate controlled ABDOMEN: Soft, NT, ND, BS Present EXTREMITIES: No LE edema, pedal pulses intact and equal bilaterally. NEURO: A&OX3. Continues on mechanical ventilation. Results & Data Results & Data ([facility]) Vital Signs (Past 12 Hours) Vital Signs Temp Pulse Resp BP Pulse Ox 08/05/21 16:20 37.8 C H 72 15 92 08/05/21 16:10 37.8 C H 73 15 92 08/05/21 16:00 37.8 C H 76 14 92 08/05/21 15:50 37.8 C H 74 16 92 08/05/21 15:40 37.8 C H 79 18 92 08/05/21 15:30 37.8 C H 81 18 92 08/05/21 15:20 37.8 C H 76 14 92 08/05/21 15:10 37.7 C H 79 18 92 08/05/21 15:00 37.8 C H 79 17 92 08/05/21 14:50 37.8 C H 72 15 92 08/05/21 14:40 37.8 C H 74 12 92 08/05/21 14:30 37.8 C H 79 13 92 08/05/21 14:20 37.8 C H 79 15 92 08/05/21 14:10 37.7 C H 79 15 91 08/05/21 14:00 37.7 C H 85 21 90 08/05/21 13:50 37.7 C H 80 27 H 91 08/05/21 13:40 37.7 C H 74 14 92 08/05/21 13:30 37.7 C H 74 19 92 08/05/21 13:20 37.7 C H 79 27 H 92 08/05/21 13:10 37.7 C H 76 16 93 08/05/21 13:00 37.7 C H 78 15 92 08/05/21 12:50 37.7 C H 76 14 92 08/05/21 12:40 37.7 C H 76 15 92 08/05/21 12:30 37.8 C H 79 16 92 08/05/21 12:20 37.8 C H 79 15 91 08/05/21 12:10 37.8 C H 85 27 H 88 L 08/05/21 12:00 37.8 C H 85 19 91 08/05/21 11:50 37.8 C H 87 13 91 08/05/21 11:40 37.8 C H 88 10 L 91 08/05/21 11:36 86 15 90 08/05/21 11:30 37.8 C H 90 25 H 90 08/05/21 11:20 37.7 C H 88 23 90 08/05/21 11:10 37.6 C H 89 21 91 08/05/21 11:00 37.6 C H 87 23 90 08/05/21 10:50 37.6 C H 90 18 91 08/05/21 10:40 37.6 C H 90 21 90 08/05/21 10:30 37.6 C H 90 25 H 89 L 08/05/21 10:20 37.7 C H 90 23 89 L 08/05/21 10:10 37.6 C H 94 H 24 91 08/05/21 10:00 37.6 C H 93 H 22 90 08/05/21 09:50 37.6 C H 89 25 H 90 08/05/21 09:40 37.7 C H 91 H 23 91 08/05/21 09:30 37.7 C H 100 H 17 90 08/05/21 09:20 37.7 C H 84 27 H 90 08/05/21 09:10 37.7 C H 91 H 21 88 L 08/05/21 09:00 37.7 C H 82 28 H 89 L 08/05/21 08:45 37.7 C H 80 30 H 113/67 90 08/05/21 08:30 37.6 C H 84 18 89 L 08/05/21 08:15 37.6 C H 80 22 113/71 89 L 08/05/21 08:00 37.6 C H 73 20 90 08/05/21 07:45 37.6 C H 77 23 127/73 89 L 08/05/21 07:37 72 30 H 91 08/05/21 07:30 37.6 C H 69 26 H 92 08/05/21 07:15 37.6 C H 72 24 117/68 92 08/05/21 07:00 37.6 C H 74 23 91 08/05/21 06:10 37.4 C 74 28 H 90 08/05/21 06:00 37.4 C 81 25 H 92 08/05/21 05:50 72 23 92 08/05/21 05:40 66 28 H 93 08/05/21 05:30 65 28 H 93 08/05/21 05:20 37.1 C 65 27 H 93 08/05/21 05:10 65 26 H 93 08/05/21 05:00 64 27 H 93 08/05/21 04:50 66 28 H 93 08/05/21 04:40 64 20 93 Critical Care Results & Data Vital Signs (Past 12 Hours) Vital Signs Temp Pulse Resp BP Pulse Ox 08/05/21 16:20 37.8 C H 72 15 92 08/05/21 16:10 37.8 C H 73 15 92 08/05/21 16:00 37.8 C H 76 14 92 08/05/21 15:50 37.8 C H 74 16 92 08/05/21 15:40 37.8 C H 79 18 92 08/05/21 15:30 37.8 C H 81 18 92 08/05/21 15:20 37.8 C H 76 14 92 08/05/21 15:10 37.7 C H 79 18 92 08/05/21 15:00 37.8 C H 79 17 92 08/05/21 14:50 37.8 C H 72 15 92 08/05/21 14:40 37.8 C H 74 12 92 08/05/21 14:30 37.8 C H 79 13 92 08/05/21 14:20 37.8 C H 79 15 92 08/05/21 14:10 37.7 C H 79 15 91 08/05/21 14:00 37.7 C H 85 21 90 08/05/21 13:50 37.7 C H 80 27 H 91 08/05/21 13:40 37.7 C H 74 14 92 08/05/21 13:30 37.7 C H 74 19 92 08/05/21 13:20 37.7 C H 79 27 H 92 08/05/21 13:10 37.7 C H 76 16 93 08/05/21 13:00 37.7 C H 78 15 92 08/05/21 12:50 37.7 C H 76 14 92 08/05/21 12:40 37.7 C H 76 15 92 08/05/21 12:30 37.8 C H 79 16 92 08/05/21 12:20 37.8 C H 79 15 91 08/05/21 12:10 37.8 C H 85 27 H 88 L 08/05/21 12:00 37.8 C H 85 19 91 08/05/21 11:50 37.8 C H 87 13 91 08/05/21 11:40 37.8 C H 88 10 L 91 08/05/21 11:36 86 15 90 08/05/21 11:30 37.8 C H 90 25 H 90 08/05/21 11:20 37.7 C H 88 23 90 08/05/21 11:10 37.6 C H 89 21 91 08/05/21 11:00 37.6 C H 87 23 90 08/05/21 10:50 37.6 C H 90 18 91 08/05/21 10:40 37.6 C H 90 21 90 08/05/21 10:30 37.6 C H 90 25 H 89 L 08/05/21 10:20 37.7 C H 90 23 89 L 08/05/21 10:10 37.6 C H 94 H 24 91 08/05/21 10:00 37.6 C H 93 H 22 90 08/05/21 09:50 37.6 C H 89 25 H 90 08/05/21 09:40 37.7 C H 91 H 23 91 08/05/21 09:30 37.7 C H 100 H 17 90 08/05/21 09:20 37.7 C H 84 27 H 90 08/05/21 09:10 37.7 C H 91 H 21 88 L 08/05/21 09:00 37.7 C H 82 28 H 89 L 08/05/21 08:45 37.7 C H 80 30 H 113/67 90 08/05/21 08:30 37.6 C H 84 18 89 L 08/05/21 08:15 37.6 C H 80 22 113/71 89 L 08/05/21 08:00 37.6 C H 73 20 90 08/05/21 07:45 37.6 C H 77 23 127/73 89 L 08/05/21 07:37 72 30 H 91 08/05/21 07:30 37.6 C H 69 26 H 92 08/05/21 07:15 37.6 C H 72 24 117/68 92 08/05/21 07:00 37.6 C H 74 23 91 08/05/21 06:10 37.4 C 74 28 H 90 08/05/21 06:00 37.4 C 81 25 H 92 08/05/21 05:50 72 23 92 08/05/21 05:40 66 28 H 93 08/05/21 05:30 65 28 H 93 08/05/21 05:20 37.1 C 65 27 H 93 08/05/21 05:10 65 26 H 93 08/05/21 05:00 64 27 H 93 08/05/21 04:50 66 28 H 93 Lab & Micro Results (Past 24 Hours) RBC 4.69 M/uL (4.2-5.4) 08/05/21 WBC 19.76 K/uL (4.8-10.8) H 08/05/21 Hgb 13.5 g/dL (12.0-16.0) 08/05/21 Hct 41.4 % (37-47) 08/05/21 MCV 88.3 fL (80-100) 08/05/21 MCH 28.8 pg (25-34) 08/05/21 MCHC 32.6 g/dL (32-36) 08/05/21 RDW Standard Deviation 45.6 fL (36.4-46.3) 08/05/21 RDW Coefficient of Variation 14.1 % (11.5-14.5) 08/05/21 Plt Count 537 K/uL (130-400) H 08/05/21 MPV 9.4 fL (7.4-10.4) 08/05/21 Neutrophils (%) (Auto) 82.6 % 08/05/21 Lymphocytes (%) (Auto) 7.3 % 08/05/21 Monocytes # (Auto) 1.02 K/uL (0.11-0.59) H 08/05/21 Eosinophils # (Auto) 0.02 K/uL (0-0.5) 08/05/21 Immature Granulocyte % (Auto) 4.6 % 08/05/21 Neutrophils # (Auto) 16.33 K/uL (1.4-6.5) H 08/05/21 Lymphocytes # (Auto) 1.44 K/uL (1.2-3.4) 08/05/21 Monocytes # (Auto) 1.02 K/uL (0.11-0.59) H 08/05/21 Eosinophils # (Auto) 0.02 K/uL (0-0.5) 08/05/21 Basophils # (Auto) 0.04 K/uL (0-0.2) 08/05/21 Immature Granulocyte # (Auto) 0.91 K/uL (0.00-0.02) H 08/05/21 Na 138 mmol/L (136-145) 08/05/21 K 3.8 mmol/L (3.5-5.1) 08/05/21 Cl 105 mmol/L (98-107) 08/05/21 CO2 26 mmol/L (21-32) 08/05/21 Anion Gap 7.0 (3-11) 08/05/21 BUN 38 mg/dl (7-18) H 08/05/21 Creatinine 0.72 mg/dl (0.6-1.2) 08/05/21 Estimated GFR ( Amer) 91.0 ml/min 08/05/21 Estimated GFR (Non-Af Amer) 78.5 ml/min 08/05/21 BUN/Creatinine Ratio 52.5 (10-20) H 08/05/21 Glu 160 mg/dl (70-99) H 08/05/21 Ca 8.5 mg/dl (8.5-10.1) 08/05/21 Phosphorus Level 3.1 mg/dl (2.5-4.9) 08/05/21 Total Bilirubin 0.3 mg/dl (0.2-1) 08/05/21 Direct Bilirubin 0.1 mg/dl (0-0.2) 08/05/21 AST 17 U/L (15-37) 08/05/21 ALT 15 (12-78) 08/05/21 Alkaline Phosphatase 63 U/L (45-117) 08/05/21 TP 5.9 gm/dl (6.4-8.2) L 08/05/21 Albumin 2.0 gm/dl (3.4-5.0) L 08/05/21 Mg 2.4 mg/dl (1.8-2.4) 08/05/21 05:45 08/05/21 Calcium Level 8.5 mg/dl (8.5-10.1) 08/05/21 05:45 08/05/21 Christofer Test NA 08/05/21 03:14 08/05/21 Microbiology 08/03/21 12:40 Urine Culture - Final Urine,Straight Cath Escherichia coli 08/03/21 16:00 Gram Stain - Final Sputum,Vent Suction Sputum Culture - Final Light normal wiliam. 07/30/21 20:02 Aerobic Blood Culture - Final Blood No growth in Aerobic bottle after 5 days. Anaerobic Blood Culture - Final Diagnostic Findings (Past 24 Hours) Chest X-Ray 08/04/21 19:00 XR chest 1V portable HISTORY: 80 years-old Female resp failure acute respiratory failure COMPARISON: Chest radiograph 08/03/2021, CTA chest 07/31/2021 TECHNIQUE: Portable AP view of the chest FINDINGS: Cardiomediastinal and hilar silhouettes are unchanged. The endotracheal tube overlies the midline, 1.4 cm superior to the anita. Dual-lumen the right IJ hemodialysis catheter distal tip projects over the right atrium. Enteric tube courses below the diaphragm with distal tip outside the [id number]. No pne umothorax. There are small bilateral pleural effusions. Interstitial coarsening with ill-defined patchy bilateral airspace opacities are redemonstrated. No acute fracture. IMPRESSION: 1. Lines and tubes as above. 2. Unchanged appearance of the multifocal pneumonia. 3. No pneumothorax. 4. Small pleural effusions. ACT 112: Negative or not required by law. The above report was generated using voice recognition software. It may contain grammatical, syntax or spelling errors. Electronically signed by: Freddy Miramontes M.D. 08/04/2021 7:27 PM I & O Totals 24 Hours 08/04/21 08/05/21 08/06/21 06:59 06:59 06:59 Intake Total 528.036 / 349.843 2809.124 / 1565.124 299.443 / 299.443 Output Total 1626 / 1626 820 / 820 490 / 490 Balance -1097.964 / -1097.964 745.124 / 745.124 -190.557 / -190.557 Cumulative 07/30/21 19:07 thru 08/05/21 16:00 Intake Total 7215.936 Output Total 4987 Balance 2228.936 RT Ventilator Mngmt (Last Documented) Ventilator Ordered Settings Ventilator Support Mode CPAP 08/05/21 15:30 Respiratory Rate 15 08/05/21 16:20 Ventilator Tidal Volume 300 08/05/21 08:00 Setting Minute Ventilation 8.1 08/05/21 15:30 Ventilator Positive Pressure 5 08/05/21 15:30 Support Setting Positive End Expiratory 5 08/05/21 15:30 Pressure Fraction of Inspired Oxygen 40 08/05/21 15:30 Machine Comment peep dropped post abg 08/05/21 03:15 Ventilator - PT Measurements Respiratory Rate 15 Exhaled Tidal Volume 493 Minute Ventilation 8.1 Peak Inspiratory Airway 11 Pressure Plateau Pressure 20 Respiratory Cycle Inspiratory: 1:1.9 Expiratory Ratio Inspiratory Phase Time 0.8 End-Tidal CO2 33 Static Lung Compliance 20.07 Dynamic Lung Compliance 82.17 Normal Static Lung Compliance 49.00 Patient Measurements Comment Found pt ett at 21 lip, volumes and spo2 good Coding Level of Care Code Critical Care 1st 30-74 mins Diagnoses ARDS (adult respiratory distress syndrome) J80 Pneumonia due to COVID-19 virus U07.1; J12.82 Hypoxia R09.02 Time Spent (min) 55
--- NOTE | 2021-08-05 20:02 | XRay Report ---
XR chest 1V portable HISTORY: Respiratory failure. COMPARISON: Chest 08/04/2021. FINDINGS: Endotracheal tube terminates 1.5 cm from the anita. This remains unchanged. No pneumothora x. Trace pleural effusions. The heart remains mildly enlarged. Hazy bilateral airspace opacities most pronounced within the lung bases persists. Nasogastric tube terminates below the diaphragm. The tip is not included on this study. Right jugular central venous catheter terminates in the right atrium. This is also unchanged. IMPRESSION: 1. Lines and tubes remain unchanged in position. 2. No significant change in the multifocal airspace opacities consistent with a pneumonia. ACT 112: Negative or not required by law. Electronically signed by: Isaiah Khanna M.D. 08/05/2021 8:01 PM
[2021-08-05] MEDS: ENOXAPARIN INJ 40 MG/0.4 ML SYR SQ SCH (20:10)
[2021-08-05] MEDS: NOREPINEPHRINE/D5W 8 MG/508 ML BAG IV SCH (20:13)
[2021-08-05] MEDS: PROPOFOL BOLUS FROM BAG IV PRN (20:34)
[2021-08-06] MEDS: fentaNYL DRIP 1,250 MCG/250 ML BAG IV SCH ×2 (00:06→20:45)
[2021-08-06] MEDS: PROPOFOL BOLUS FROM BAG IV PRN ×3 (00:07→06:41)
[2021-08-06] MEDS: FAMOTIDINE 20 MG in SYRINGE 3 ML IV SCH ×2 (00:20→12:07)
[2021-08-06] MEDS: INSULIN ASPART PER UNIT SC SCH ×6 (00:20→20:46)
[2021-08-06] MEDS: propofoL 1,000 MG/100 ML VIAL IV SCH ×3 (03:28→20:44)
[2021-08-06] MEDS: PEPTAMEN INTENSE VHP 1.0 CAL 1,000 ML BAG OG SCH (04:09)
[2021-08-06 04:20] LABS: iSTAT Arterial Blood Gas HCO3 29 meg/L (19-24); iSTAT Arterial Blood Gas pCO2 46 mmHg (35-46); iSTAT Arterial Blood Gas pH 7.41 (7.35-7.45); iSTAT Arterial Blood Gas pO2 59 mmHg (80-95); iSTAT Carbon Dioxide 30 mmol/L (24-31); iSTAT FiO2 40 %; iSTAT Site Art Line
[2021-08-06 05:55] LABS: Basophils # (auto) 0.01 K/uL (0-0.2); Basophils % (auto) 0.1 %; Eosinophils # (auto) 0.06 K/uL (0-0.5); Eosinophils % (auto) 0.4 %; Hematocrit (blood only) 38.6 % (37-47); Hemoglobin 12.6 g/dL (12.0-16.0); Immature Granulocytes # (auto) 0.31 K/uL (0.00-0.02); Lymphocytes # (auto) 1.21 K/uL (1.2-3.4); Lymphocytes % (auto) 7.8 %; Mean Corpuscular Hgb Conc 32.6 g/dL (32-36); Mean Corpuscular Volume 88.9 fL (80-100); Mean Platelet Volume 9.1 fL (7.4-10.4); Monocytes # (auto) 0.54 K/uL (0.11-0.59); Monocytes % (auto) 3.5 %; Neutrophils # (auto) 13.32 K/uL (1.4-6.5); Neutrophils % (auto) 86.2 %; Platelet Count 348 K/uL (130-400); RDW Coefficient of Variation 14.4 % (11.5-14.5); RDW Standard Deviation 47.3 fL (36.4-46.3); Red Blood Count 4.34 M/uL (4.2-5.4); White Blood Count 15.45 K/uL (4.8-10.8)
[2021-08-06 06:26] LABS: Albumin Level 1.8 gm/dl (3.4-5.0); BUN Creatinine Ratio 60.9 (10-20); Bilirubin Direct 0.1 mg/dl (0-0.2); Calcium 8.5 mg/dl (8.5-10.1); Creatinine Clr Calc Pharmacy 71.7 ml/min; Est GFR (African American) 100.2 ml/min; Est GFR (Non-African American) 86.4 ml/min; Potassium 4.1 mmol/L (3.5-5.1)
[2021-08-06 06:34] LABS: Bilirubin,Total 0.4 mg/dl (0.2-1); Magnesium 2.1 mg/dl (1.8-2.4); Phosphorus 2.5 mg/dl (2.5-4.9); Total Protein 5.6 gm/dl (6.4-8.2)
[2021-08-06] MEDS: ICU ELECTROLYTE REPLACEMENT PROTOCOL SCH ×2 (06:46→16:41)
[2021-08-06] MEDS: dexAMETHasone 6 MG in SYRINGE 0 ML IV SCH (08:17)
[2021-08-06] MEDS: INSULIN HUMAN NPH SC SCH (08:25)
--- NOTE | 2021-08-06 11:46 | Critical Care Progress Note ---
Date of Service August 06, 2021 Assessment & Plan (1) ARDS (adult respiratory distress syndrome): (2) Pneumonia due to COVID-19 virus: (3) Hypoxia: Plan: Impression: 80-year-old female with ARDS secondary to Covid pneumonitis. She failed conservative management with high flow oxygen and noninvasive positive pressure ventilation and was intubated 08/03/2021. She awakens to command. She describes no acute distress. She is tolerating mechanical ventilation well Previous 24 hours: Patient remains hemodynamically stable. She was placed on a spontaneous breathing trial this morning and has done well. Her RSB is below 50. She is awake and following commands. Recommendations: 1. Neuro: Hold sedation at this point time for potential liberation from mechanical ventilation. 2. Cardiovascular: Hemodynamically stable. Now off pressors 3. Pulmonary: Severe ARDS secondary to Covid pneumonitis. Doing well on pressure support ventilation. We will pursue trial of extubation. May need high flow or BiPAP and if fails family would like her reintubated. Would then need to discuss tracheostomy. 4. Renal: No current issues. Replace electrolytes as needed per ICU replacement protocol. Hold on diuretics. 5. ID: Covid pneumonitis. Continue dexamethasone at 6 mg IV daily. Day #2 Rocephin for UTI. White count down to 15,000. Afebrile 6. GI: Tube feeds on hold secondary to possible vent liberation. If she successfully liberated from the vent, will need speech therapy evaluation. 7. Endocrine: Glycemic control per protocol. Currently no indication for insulin drip 8. Heme-onc: No current issues. Continue to follow. DVT prophylaxis per ACCP guidelines using enoxaparin 40 mg subcutaneously daily Patient's [id number] Dilia Monte was updated by phone today at 11:30. Questions were answered to the best my ability. Family seems satisfied that the patient is headed in the right direction. Patient discussed on multidisciplinary rounds and with bedside critical care nurse as well as with respiratory therapy Total of 40 minutes was spent coordinating care for this patient Admission and Anticipated Discharge Date Admission Date: July 30, 2021 Subjective Patient currently intubated and sedated but following commands. She has been on the spontaneous breathing trial for several hours and has an R SBI of less than 50. She looks comfortable Review of Systems Review of Systems: Unobtainable due to endotracheal tube Physical Exam Constitutional: + obese and + mechanically ventilated Neck: trachea midline, no thyromegaly Cardiovascular: RRR, no murmur, no edema Gastrointestinal (Abdomen): normal bowel sounds, soft, nontender, no hepatosp lenomegaly Musculoskeletal: Extremities: extremities normal to inspection Skin: no rashes, warm and dry Lymphatic: no cervical lymphadenopathy Results & Data Results & Data ([facility]) Vital Signs (Past 12 Hours) Vital Signs Temp Pulse Resp Pulse Ox 08/06/21 10:30 38.1 C H 78 17 90 08/06/21 10:20 38.1 C H 78 19 89 L 08/06/21 10:10 38.1 C H 81 20 89 L 08/06/21 10:00 38.1 C H 86 20 90 08/06/21 09:50 37.8 C H 93 H 88 L 08/06/21 09:40 37.9 C H 90 88 L 08/06/21 09:30 38.1 C H 82 89 L 08/06/21 09:15 37.8 C H 93 H 87 L 08/06/21 09:00 38.1 C H 84 89 L 08/06/21 08:45 38.0 C H 90 88 L 08/06/21 08:30 37.7 C H 96 H 86 L 08/06/21 08:15 37.5 C 96 H 86 L 08/06/21 08:00 37.6 C H 85 26 H 87 L 08/06/21 07:45 37.7 C H 82 23 90 08/06/21 07:30 37.7 C H 73 22 89 L 08/06/21 07:15 37.7 C H 69 26 H 89 L 08/06/21 07:00 37.7 C H 82 20 89 L 08/06/21 06:20 37.6 C H 72 27 H 90 08/06/21 06:10 37.6 C H 68 26 H 89 L 08/06/21 06:00 37.7 C H 68 26 H 88 L 08/06/21 05:50 37.7 C H 66 24 89 L 08/06/21 05:40 37.7 C H 78 38 H 87 L 08/06/21 05:30 37.6 C H 68 22 89 L 08/06/21 05:20 37.7 C H 66 27 H 90 08/06/21 05:10 37.7 C H 64 28 H 89 L 08/06/21 05:00 37.7 C H 65 20 90 08/06/21 04:50 37.7 C H 65 26 H 90 08/06/21 04:40 37.7 C H 63 26 H 90 08/06/21 04:30 37.7 C H 64 28 H 90 08/06/21 04:20 37.7 C H 65 23 08/06/21 04:10 37.7 C H 62 26 H 90 08/06/21 04:00 37.7 C H 66 27 H 90 08/06/21 03:50 37.7 C H 75 22 88 L 08/06/21 03:44 63 27 H 90 08/06/21 03:40 37.7 C H 63 26 H 90 08/06/21 03:30 37.7 C H 65 20 08/06/21 03:20 37.7 C H 66 27 H 08/06/21 03:10 37.7 C H 67 26 H 90 08/06/21 03:00 37.7 C H 63 26 H 91 08/06/21 02:50 37.7 C H 65 27 H 08/06/21 02:40 37.7 C H 65 26 H 08/06/21 02:30 37.7 C H 64 26 H 08/06/21 02:20 37.7 C H 63 26 H 08/06/21 02:10 37.7 C H 63 20 08/06/21 02:00 37.7 C H 66 27 H 08/06/21 01:50 37.7 C H 65 27 H 08/06/21 01:40 37.7 C H 62 26 H 90 08/06/21 01:30 37.7 C H 63 26 H 91 08/06/21 01:20 37.8 C H 63 27 H 91 08/06/21 01:10 37.8 C H 66 28 H 90 08/06/21 01:00 37.8 C H 67 24 90 08/06/21 00:50 37.8 C H 68 20 08/06/21 00:40 37.8 C H 66 26 H 90 08/06/21 00:30 37.8 C H 66 27 H 91 08/06/21 00:20 37.8 C H 66 20 91 08/06/21 00:10 37.9 C H 67 26 H 90 08/06/21 00:01 74 34 H 91 08/06/21 00:00 37.8 C H 78 23 94 08/05/21 23:50 37.9 C H 68 24 91 Critical Care Results & Data Vital Signs (Past 12 Hours) Vital Signs Temp Pulse Resp Pulse Ox 08/06/21 10:30 38.1 C H 78 17 90 08/06/21 10:20 38.1 C H 78 19 89 L 08/06/21 10:10 38.1 C H 81 20 89 L 08/06/21 10:00 38.1 C H 86 20 90 08/06/21 09:50 37.8 C H 93 H 88 L 08/06/21 09:40 37.9 C H 90 88 L 08/06/21 09:30 38.1 C H 82 89 L 08/06/21 09:15 37.8 C H 93 H 87 L 08/06/21 09:00 38.1 C H 84 89 L 08/06/21 08:45 38.0 C H 90 88 L 08/06/21 08:30 37.7 C H 96 H 86 L 08/06/21 08:15 37.5 C 96 H 86 L 08/06/21 08:00 37.6 C H 85 26 H 87 L 08/06/21 07:45 37.7 C H 82 23 90 08/06/21 07:30 37.7 C H 73 22 89 L 08/06/21 07:15 37.7 C H 69 26 H 89 L 08/06/21 07:00 37.7 C H 82 20 89 L 08/06/21 06:20 37.6 C H 72 27 H 90 08/06/21 06:10 37.6 C H 68 26 H 89 L 08/06/21 06:00 37.7 C H 68 26 H 88 L 08/06/21 05:50 37.7 C H 66 24 89 L 08/06/21 05:40 37.7 C H 78 38 H 87 L 08/06/21 05:30 37.6 C H 68 22 89 L 08/06/21 05:20 37.7 C H 66 27 H 90 08/06/21 05:10 37.7 C H 64 28 H 89 L 08/06/21 05:00 37.7 C H 65 20 90 08/06/21 04:50 37.7 C H 65 26 H 90 08/06/21 04:40 37.7 C H 63 26 H 90 08/06/21 04:30 37.7 C H 64 28 H 90 08/06/21 04:20 37.7 C H 65 23 08/06/21 04:10 37.7 C H 62 26 H 90 08/06/21 04:00 37.7 C H 66 27 H 90 08/06/21 03:50 37.7 C H 75 22 88 L 08/06/21 03:44 63 27 H 90 08/06/21 03:40 37.7 C H 63 26 H 90 08/06/21 03:30 37.7 C H 65 20 08/06/21 03:20 37.7 C H 66 27 H 08/06/21 03:10 37.7 C H 67 26 H 90 08/06/21 03:00 37.7 C H 63 26 H 91 08/06/21 02:50 37.7 C H 65 27 H 91 08/06/21 02:40 37.7 C H 65 26 H 91 08/06/21 02:30 37.7 C H 64 26 H 91 08/06/21 02:20 37.7 C H 63 26 H 91 08/06/21 02:10 37.7 C H 63 20 08/06/21 02:00 37.7 C H 66 27 H 08/06/21 01:50 37.7 C H 65 27 H 08/06/21 01:40 37.7 C H 62 26 H 90 08/06/21 01:30 37.7 C H 63 26 H 91 08/06/21 01:20 37.8 C H 63 27 H 91 08/06/21 01:10 37.8 C H 66 28 H 90 08/06/21 01:00 37.8 C H 67 24 90 08/06/21 00:50 37.8 C H 68 20 08/06/21 00:40 37.8 C H 66 26 H 90 08/06/21 00:30 37.8 C H 66 27 H 91 08/06/21 00:20 37.8 C H 66 20 91 08/06/21 00:10 37.9 C H 67 26 H 90 08/06/21 00:01 74 34 H 91 08/06/21 00:00 37.8 C H 78 23 94 08/05/21 23:50 37.9 C H 68 24 91 Lab & Micro Results (Past 24 Hours) RBC 4.34 M/uL (4.2-5.4) 08/06/21 WBC 15.45 K/uL (4.8-10.8) H 08/06/21 Hgb 12.6 g/dL (12.0-16.0) 08/06/21 Hct 38.6 % (37-47) 08/06/21 MCV 88.9 fL (80-100) 08/06/21 MCH 29.0 pg (25-34) 08/06/21 MCHC 32.6 g/dL (32-36) 08/06/21 RDW Standard Deviation 47.3 fL (36.4-46.3) H 08/06/21 RDW Coefficient of Variation 14.4 % (11.5-14.5) 08/06/21 Plt Count 348 K/uL (130-400) 08/06/21 MPV 9.1 fL (7.4-10.4) 08/06/21 Neutrophils (%) (Auto) 86.2 % 08/06/21 Lymphocytes (%) (Auto) 7.8 % 08/06/21 Monocytes # (Auto) 0.54 K/uL (0.11-0.59) 08/06/21 Eosinophils # (Auto) 0.06 K/uL (0-0.5) 08/06/21 Immature Granulocyte % (Auto) 2.0 % 08/06/21 Neutrophils # (Auto) 13.32 K/uL (1.4-6.5) H 08/06/21 Lymphocytes # (Auto) 1.21 K/uL (1.2-3.4) 08/06/21 Monocytes # (Auto) 0.54 K/uL (0.11-0.59) 08/06/21 Eosinophils # (Auto) 0.06 K/uL (0-0.5) 08/06/21 Basophils # (Auto) 0.01 K/uL (0-0.2) 08/06/21 Immature Granulocyte # (Auto) 0.31 K/uL (0.00-0.02) H 08/06/21 Na 136 mmol/L (136-145) 08/06/21 K 4.1 mmol/L (3.5-5.1) 08/06/21 Cl 106 mmol/L (98-107) 08/06/21 CO2 26 mmol/L (21-32) 08/06/21 Anion Gap 4.0 (3-11) 08/06/21 BUN 35 mg/dl (7-18) H 08/06/21 Creatinine 0.58 mg/dl (0.6-1.2) L 08/06/21 Estimated GFR ( Amer) 100.2 ml/min 08/06/21 Estimated GFR (Non-Af Amer) 86.4 ml/min 08/06/21 BUN/Creatinine Ratio 60.9 (10-20) H 08/06/21 Glu 117 mg/dl (70-99) H 08/06/21 Ca 8.5 mg/dl (8.5-10.1) 08/06/21 Phosphorus Level 2.5 mg/dl (2.5-4.9) 08/06/21 Total Bilirubin 0.4 mg/dl (0.2-1) 08/06/21 Direct Bilirubin 0.1 mg/dl (0-0.2) 08/06/21 AST 20 U/L (15-37) 08/06/21 ALT 14 (12-78) 08/06/21 Alkaline Phosphatase 56 U/L (45-117) 08/06/21 TP 5.6 gm/dl (6.4-8.2) L 08/06/21 Albumin 1.8 gm/dl (3.4-5.0) L 08/06/21 Mg 2.1 mg/dl (1.8-2.4) 08/06/21 05:38 08/06/21 Calcium Level 8.5 mg/dl (8.5-10.1) 08/06/21 05:38 08/06/21 Christofer Test NA 08/06/21 03:49 08/06/21 Microbiology 08/03/21 12:40 Urine Culture - Final Urine,Straight Cath Escherichia coli 08/03/21 16:00 Gram Stain - Final Sputum,Vent Suction Sputum Culture - Final Light normal wiliam. 07/30/21 20:02 Aerobic Blood Culture - Final Blood No growth in Aerobic bottle after 5 days. Anaerobic Blood Culture - Final Diagnostic Findings (Past 24 Hours) Chest X-Ray 08/05/21 19:00 XR chest 1V portable HISTORY: Respiratory failure. COMPARISON: Chest 08/04/2021. FINDINGS: Endotracheal tube terminates 1.5 cm from the anita. This remains unchanged. No pneumothorax. Trace pleural effusions. The heart remains mildly enlarged. Hazy bilateral airspace opacities most pronounced within the lung bases persists. Nasogastric tube terminates below the diaphragm. The tip is not included on this study. Right jugular central venous catheter terminates in the right atrium. This is also unchanged. IMPRESSION: 1. Lines and tubes remain unchanged in position. 2. No significant change in the multifocal airspace opacities consistent with a pneumonia. ACT 112: Negative or not required by law. Electronically signed by: Isaiah Khanna M.D. 08/05/2021 8:01 PM I & O Totals 24 Hours 08/05/21 08/06/21 08/07/21 06:59 06:59 06:59 Intake Total 1565.124 / 1565.124 691.228 / 691.228 173.780 / 173.780 Output Total 820 / 820 1520 / 1520 245 / 245 Balance 745.124 / 745.124 -828.772 / -828.772 -71.220 / -71.220 Cumulative 07/30/21 19:07 thru 08/06/21 11:00 Intake Total 7781.501 Output Total 6262 Balance 1519.501 RT Ventilator Mngmt (Last Documented) Ventilator Ordered Settings Ventilator Support Mode Assist Control 08/06/21 08:00 Respiratory Rate 17 08/06/21 10:30 Ventilator Tidal Volume 300 08/06/21 0 8:00 Setting Minute Ventilation 7.6 08/06/21 07:30 Ventilator Positive Pressure 5 08/06/21 07:30 Support Setting Positive End Expiratory 5 08/06/21 08:00 Pressure Fraction of Inspired Oxygen 40 08/06/21 08:00 Machine Comment peep dropped post abg 08/05/21 03:15 Ventilator - PT Measurements Respiratory Rate 17 Exhaled Tidal Volume 480 Minute Ventilation 7.6 Peak Inspiratory Airway 11 Pressure Plateau Pressure 12.9 Respiratory Cycle Inspiratory: 1:1.9 Expiratory Ratio Inspiratory Phase Time 0.80 End-Tidal CO2 30 Static Lung Compliance 37.72 Dynamic Lung Compliance 80.00 Normal Static Lung Compliance 49.00 Patient Measurements Comment Found pt ett at 21 lip, volumes and spo2 good Coding Level of Care Code 47649 Subseq Hosp Care Lvl 3 Diagnoses ARDS (adult respiratory distress syndrome) J80 Pneumonia due to COVID-19 virus U07.1; J12.82 Hypoxia R09.02
[2021-08-06] MEDS: cefTRIAXone SODIUM 1,000 MG in DEXTROSE 5% 50 ML IV SCH (12:08)
--- NOTE | 2021-08-06 13:52 | Pharmacy Report ---
Pharmacy Glycemic Short Note 2 - Date of Service August 06, 2021 - Glycemic Short BSG Results (Last 24 hours): 08/05/21 08/05/21 08/05/21 16:12 18:13 20:08 Glucose POC Glucose 153 H 158 H 129 H 08/06/21 08/06/21 08/06/21 00:19 03:27 05:38 Glucose 117 H POC Glucose 94 103 H 08/06/21 08/06/21 08:12 11:53 Glucose POC Glucose 138 H 123 H OUTPATIENT ANTIDIABETIC REGIMEN: * N/A * A1c = 6.8% on 07/31/21 ASSESSMENT: 08/06: * Pt has remained stable on 25 units of NPH daily since 08/03. BSGs well controlled. Extubated this afternoon. * Dex 6mg q24h continues * TF held intermittently the past 48hr during spontaneous breathing trials * No change to current insulin regimen. Monitor closely for TF re-initiation and/or steroid discontinuation as insulin requirements may change. 08/03: * Patient was intubated this morning and started on Levophed. * BSGs were well controlled the previous few days. * Over the last 24 hours: [id number] mg/dL * Received 30 units NPH + 7 units Novolog yesterday * Fasting BSG was 89 mg/dL this AM * Decreased NPH to 25 units this AM * No changes to Novolog * Will monitor for start of tube feeds as well. 07/31: * 80yo female with steroid induced hyperglycemia. A1c slightly elevated and diagnostic for DMT2 as it is > 6.5% but likely just lifestyle interventions will be needed at [place]. * Pt admitted with COVID-19; receiving dexamethasone 6mg IV daily. Will start weight based NPH for steroid induced hyperglycemia * NPH insulin is used to counteract the hyperglycemic effect of once daily steroids. NPH should be dosed at the same time that steroid is given * The dose of NPH given is dependent on the steroid dose given * For doses of prednisone 40mg/day or equivalent or above NPH dose should be 0.4 units/kg * NPH dosing above is given in addition to patients basal insulin needs * Typically, patients will also need rapid-acting insulin with meals PLAN FOR INPATIENT GLYCEMIC CONTROL: * Basal insulin * NPH 25 units SC daily with dexamethasone (hold if dexamethasone held or DC) * Bolus insulin * NovoLog per scale ACHS or Q6hrs while NPO * Goal Range: Low 120 mg/dL - High 160 mg/dL * Correction Factor: 30 mg/dL/unit * Nutritional / Prandial insulin per carb ratio of 1 unit per 10 grams CHO consumed PLAN FOR DISCHARGE: * Support Patient Self-Management Healthy Lifestyle (diet, exercise, and smoking cessation) Disease self-management (SMBG) Prevention of complications (BP, Lipid goals, Immunizations) Consider outpatient Diabetes Self-Management Education & Support
--- NOTE | 2021-08-06 19:25 | XRay Report ---
XR chest 1V portable CLINICAL HISTORY: resp failure TECHNIQUE: Single frontal radiograph of the chest was obtained. Comparison: Comparison is made to chest one view 08/05/2021 FINDINGS: Interval removal of endotracheal and enteric tubes. A right venous catheter tip is at the cavoatrial junction. Cardiomegaly is noted. Bilateral lower lung predominant airspace opacities are seen. Bilate ral pleural effusions are seen. IMPRESSION: Bilateral lower lung predominant airspace opacities which may represent atelectasis, pneumonia, and/o r aspiration. Small bilateral pleural effusions are seen. ACT 112: Negative or not required by law. Electronically signed by: Derek Tomsa M.D. 08/06/2021 7:24 PM
[2021-08-06] MEDS: NOREPINEPHRINE/D5W 8 MG/508 ML BAG IV SCH (20:45)
[2021-08-06] MEDS: ENOXAPARIN INJ 40 MG/0.4 ML SYR SQ SCH (21:46)
--- NOTE | 2021-08-06 21:47 | Hospitalist Progress Note ---
Date of Service August 06, 2021 Assessment & Plan (1) Pneumonia due to COVID-19 virus: (2) Hypoxia: Plan: Acute Hypoxic Respiratory Failure secondary to COVID-19 pneumonia Status post extubation today Currently on high flow oxygen and tolerated well [employer] on board Sedation has been off Continue dexamethasone On IV antibiotic Ceftriaxone for UTI Continue monitor closely Diabetes Most recent hemoglobin A1c 6.8 Pharmacy pharmacy on board for glycemic management Hypokalemia: K stable Monitor BMP Hypertension: Patient was on pressor with Levophed due to low BP BP meds on hold Continue monitor BP Deep venous thrombosis prophylaxis: Lovenox. Admission and Anticipated Discharge Date Admission Date: July 30, 2021 Subjective Patient was seen and examined for follow-up of respiratory failure due to COVID- 19 Sitting in bed status post extubation and currently on high flow oxygen supplement She denies any struggle to breath Denies any chest pain, palpitation, dizziness, and fever. Review of Systems Review of Systems: All systems reviewed & are unremarkable except as noted in Subjective Physical Exam Physical Exam: General- No acute distress Head- atraumatic Eyes- PERRL, EOMI, ENT- oropharynx clear Neck- supple, no JVD Lungs- +coarse breath sound Heart- regular rhythm; no murmur Abdomen- normal bowel sounds, soft, nontender Extremities- no calf tenderness Neuro- alert, awake; PERRL, EOMI; no facial palsy; no dysarthria, move all 4 extremities Skin- warm & dry Results & Data Results & Data ([facility]) Vital Signs (Past 12 Hours) Vital Signs Temp Pulse Pulse Resp Pulse Ox Pulse Ox 08/06/21 21:00 37.5 C 74 94 08/06/21 20:30 37.6 C H 74 93 08/06/21 20:00 37.6 C H 73 93 08/06/21 19:30 37.6 C H 75 93 08/06/21 19:00 37.6 C H 74 93 08/06/21 18:30 37.6 C H 72 93 08/06/21 18:29 92 H 20 89 L 08/06/21 18:15 37.6 C H 74 93 08/06/21 18:00 37.6 C H 75 93 08/06/21 17:45 37.6 C H 75 94 08/06/21 17:30 37.6 C H 72 94 08/06/21 17:15 37.6 C H 71 94 08/06/21 17:00 37.5 C 75 93 08/06/21 16:45 37.5 C 73 93 08/06/21 16:30 37.6 C H 74 92 08/06/21 16:15 37.6 C H 74 92 08/06/21 16:00 37.6 C H 71 93 08/06/21 15:45 37.5 C 72 91 08/06/21 15:30 37.6 C H 88 92 08/06/21 15:15 37.6 C H 71 94 08/06/21 15:10 77 22 93 08/06/21 15:00 37.6 C H 76 93 08/06/21 14:45 37.6 C H 75 93 08/06/21 14:30 37.7 C H 76 93 08/06/21 14:20 82 08/06/21 14:15 37.7 C H 76 93 08/06/21 14:00 37.7 C H 77 93 08/06/21 13:45 37.8 C H 76 93 08/06/21 13:30 37.8 C H 75 94 08/06/21 13:15 37.8 C H 75 94 08/06/21 13:00 37.7 C H 76 93 50 L 08/06/21 12:45 37.8 C H 78 92 08/06/21 12:30 37.7 C H 79 94 08/06/21 12:15 38.0 C H 78 93 08/06/21 12:00 38.1 C H 86 92 08/06/21 11:45 38.1 C H 81 96 08/06/21 11:30 38.1 C H 90 27 H 87 L 08/06/21 11:15 38.0 C H 84 25 H 89 L 08/06/21 11:00 37.7 C H 89 29 H 88 L 08/06/21 10:45 38.1 C H 77 18 91 08/06/21 10:30 38.1 C H 78 17 90 08/06/21 10:20 38.1 C H 78 19 89 L 08/06/21 10:10 38.1 C H 81 20 89 L 08/06/21 10:00 38.1 C H 86 20 90 08/06/21 09:50 37.8 C H 93 H 88 L
[2021-08-07] MEDS: FAMOTIDINE 20 MG in SYRINGE 3 ML IV SCH ×2 (01:26→12:07)
[2021-08-07] MEDS: INSULIN ASPART PER UNIT SC SCH ×5 (01:26→19:40)
[2021-08-07 06:30] LABS: Albumin Level 1.8 gm/dl (3.4-5.0); BUN Creatinine Ratio 38.5 (10-20); Bilirubin Direct 0.2 mg/dl (0-0.2); Bilirubin,Total 0.5 mg/dl (0.2-1); Calcium 8.6 mg/dl (8.5-10.1); Est GFR (African American) 71.4 ml/min; Est GFR (Non-African American) 61.6 ml/min; Magnesium 2.4 mg/dl (1.8-2.4); Phosphorus 3.5 mg/dl (2.5-4.9); Potassium 4.3 mmol/L (3.5-5.1); Total Protein 6.1 gm/dl (6.4-8.2)
[2021-08-07] MEDS: ICU ELECTROLYTE REPLACEMENT PROTOCOL SCH ×2 (06:42→17:56)
[2021-08-07] MEDS: dexAMETHasone 6 MG in SYRINGE 0 ML IV SCH (08:30)
[2021-08-07] MEDS ORDERED: INSULIN HUMAN NPH SC SCH (09:00)
--- NOTE | 2021-08-07 09:15 | XRay Report ---
XR chest 1V portable HISTORY: Respiratory failure. COMPARISON: Chest 08/06/2021. FINDINGS: Hazy bilateral airspace opacities most pronounced within the lung bases persists. This like ly represents a viral pneumonia. There are trace bilateral pleural effusions and mild cardiac megaly, unchanged. No pneumothorax. A right jugular central venous catheter terminates in the right atrium. This is also unchanged in position. IMPRESSION: No change in the multifocal hazy airspace opacities likely representing a viral pneumonia. ACT 112: Negative or not required by law. Electronically signed by: Isaiah Khanna M.D. 08/07/2021 9:14 AM
--- NOTE | 2021-08-07 10:57 | Critical Care Progress Note ---
Date of Service August 07, 2021 Assessment & Plan (1) ARDS (adult respiratory distress syndrome): (2) Pneumonia due to COVID-19 virus: (3) Hypoxia: Plan: Impression: 80-year-old female with ARDS secondary to Covid pneumonitis. She failed conservative management with high flow oxygen and noninvasive positive pressure ventilation and was intubated 08/03/2021. She was successfully extubated 08/06/2021 to hi raoul O2. She describes no acute distress. She is curr ently on nasal cannula at 6 L/min. Previous 24 hours: Patient remains hemodynamically stable. Successfully extubated 08/06/2021. No new issues. Recommendations: 1. Neuro: All sedation and analgesia infusions have been discontinued. Patient alert and oriented x3. Answers questions appropriately. Somewhat flat affect explained by depression from recent of and other family issues. 2. Cardiovascular: Hemodynamically stable. 3. Pulmonary: Severe ARDS secondary to Covid pneumonitis. Doing well on supplemental oxygen via nasal cannula. May need high flow or BiPAP and if she weakens over the next few days. If patient should fail extubation, family would like patient reintubated. However, patient is alert and oriented and we would need to discuss options with her regarding reintubation and possible tracheostomy. 4. Renal: No current issues. Further management of electrolytes per hospitalist team. Will downgrade from intensive care to telemetry. 5. ID: Covid pneumonitis. Continue dexamethasone at 6 mg IV daily. Day #3 Rocephin for UTI. White count down to 15,000. Afebrile. We will keep Calloway catheter to gravity for now. Discontinue per nursing protocol 6. GI: We will do bedside swallow exam today. Speech-language pathology would be warranted as patient is now day #1 following extubation. 7. Endocrine: Glycemic control per protocol. Currently no indication for insulin drip 8. Heme-onc: No current issues. Continue to follow. DVT prophylaxis per ACCP guidelines using enoxaparin 40 mg subcutaneously daily 9. Disposition: Patient will need PT/OT consults and evaluation. Increase activity as tolerated. Will defer other discharge planning to hospitalist team. Patient's [id number] Dilia Monte was updated by phone today. Questions were answered to the best my ability. Family seems satisfied that the patient is improving. Patient discussed on multidisciplinary rounds and with bedside critical care nurse as well as with respiratory therapy. Total of 30 minutes was spent coordinating care for this patient Admission and Anticipated Discharge Date Admission Date: July 30, 2021 Subjective Attending: Dr. Alvarez Patient seen and examined in room 206. She was successfully extubated yesterday and is doing well today. Respiratory rate is 20. She is currently saturating 91 to 92% with nasal cannula at 6 L/min. She has no respiratory distress. She has no use of accessory muscles. Patient does seem somewhat depressed. However, her recently from Covid and she has been hospitalized and mechanically ventilated for Covid. I think that her affect is appropriate considering what she and her family have been through. Patient follows commands well. She has no hoarseness in her voice. She denies cough or sputum production. She has no chest pain or tightness. With supplemental oxygen she has no shortness of breath. She is unaware of any fever, chills, sweats, rigors. She has no other acute complaints. Review of Systems Review of Systems: All systems reviewed & are unremarkable except as noted in Subjective Physical Exam Physical Exam: GENERAL : No acute distress EYES: No icterus, gaze conjugate NOSE: No evidence of epistaxis MOUTH: No lesions or candidiasis NECK: Supple LUNGS: Patient with fine crackles in the bilateral bases. Otherwise clear to auscultation. She has no bronchospasm or rhonchi appreciated. Good inspirational effort. No cough with deep inspiration. HEART: Regular, rate controlled ABDOMEN: Soft, NT, ND, BS Present EXTREMITIES: No LE edema, pedal pulses intact NEURO: A&OX3 Results & Data Results & Data ([facility]) Vital Signs (Past 12 Hours) Vital Signs Temp Pulse Pulse Ox 08/07/21 07:30 37.4 C 73 91 08/07/21 07:00 37.4 C 69 91 08/07/21 06:30 37.2 C 76 90 08/07/21 06:00 37.4 C 69 90 08/07/21 05:30 37.4 C 73 89 L 08/07/21 05:00 37.3 C 67 91 08/07/21 04:30 37.3 C 73 90 08/07/21 04:00 37.3 C 69 91 08/07/21 03:30 37.3 C 64 91 08/07/21 03:00 37.3 C 74 89 L 08/07/21 02:30 37.4 C 77 90 08/07/21 02:00 37.4 C 67 93 08/07/21 01:30 37.4 C 69 92 08/07/21 01:00 37.5 C 68 92 08/07/21 00:30 37.4 C 68 92 08/07/21 00:00 37.4 C 68 92 08/06/21 23:30 37.4 C 67 92 08/06/21 23:00 37.4 C 76 93 Critical Care Results & Data Vital Signs (Past 12 Hours) Vital Signs Temp Pulse Pulse Ox 08/07/21 07:30 37.4 C 73 91 08/07/21 07:00 37.4 C 69 91 08/07/21 06:30 37.2 C 76 90 08/07/21 06:00 37.4 C 69 90 08/07/21 05:30 37.4 C 73 89 L 08/07/21 05:00 37.3 C 67 91 08/07/21 04:30 37.3 C 73 90 08/07/21 04:00 37.3 C 69 91 08/07/21 03:30 37.3 C 64 91 08/07/21 03:00 37.3 C 74 89 L 08/07/21 02:30 37.4 C 77 90 08/07/21 02:00 37.4 C 67 93 08/07/21 01:30 37.4 C 69 92 08/07/21 01:00 37.5 C 68 92 08/07/21 00:30 37.4 C 68 92 08/07/21 00:00 37.4 C 68 92 08/06/21 23:30 37.4 C 67 92 08/06/21 23:00 37.4 C 76 93 Lab & Micro Results (Past 24 Hours) No Data to Display Na 138 mmol/L (136-145) 08/07/21 K 4.3 mmol/L (3.5-5.1) 08/07/21 Cl 105 mmol/L (98-107) 08/07/21 CO2 27 mmol/L (21-32) 08/07/21 Anion Gap 6.0 (3-11) 08/07/21 BUN 34 mg/dl (7-18) H 08/07/21 Creatinine 0.88 mg/dl (0.6-1.2) 08/07/21 Estimated GFR ( Amer) 71.4 ml/min 08/07/21 Estimated GFR (Non-Af Amer) 61.6 ml/min 08/07/21 BUN/Creatinine Ratio 38.5 (10-20) H 08/07/21 Glu 83 mg/dl (70-99) 08/07/21 Ca 8.6 mg/dl (8.5-10.1) 08/07/21 Phosphorus Level 3.5 mg/dl (2.5-4.9) 08/07/21 Total Bilirubin 0.5 mg/dl (0.2-1) 08/07/21 Direct Bilirubin 0.2 mg/dl (0-0.2) 08/07/21 AST 20 U/L (15-37) 08/07/21 ALT 13 (12-78) 08/07/21 Alkaline Phosphatase 52 U/L (45-117) 08/07/21 TP 6.1 gm/dl (6.4-8.2) L 08/07/21 Albumin 1.8 gm/dl (3.4-5.0) L 08/07/21 Mg 2.4 mg/dl (1.8-2.4) 08/07/21 05:34 08/07/21 Calcium Level 8.6 mg/dl (8.5-10.1) 08/07/21 05:34 08/07/21 Diagnostic Findings (Past 24 Hours) Chest X-Ray 08/06/21 19:00 XR chest 1V portable CLINICAL HISTORY: resp failure TECHNIQUE: Single frontal radiograph of the chest was obtained. Comparison: Comparison is made to chest one view 08/05/2021 FINDINGS: Interval removal of endotracheal and enteric tubes. A right venous catheter tip is at the cavoatrial junction. Cardiomegaly is noted. Bilateral lower lung predominant airspace opacities are seen. Bilateral pleural effusions are seen. IMPRESSION: Bilateral lower lung predominant airspace opacities which may represent atelectasis, pneumonia, and/or aspiration. Small bilateral pleural effusions are seen. ACT 112: Negative or not required by law. Electronically signed by: Derek Tomas M.D. 08/06/2021 7:24 PM Chest X-Ray 08/07/21 19:00 XR chest 1V portable HISTORY: Respiratory failure. COMPARISON: Chest 08/06/2021. FINDINGS: Hazy bilateral airspace opacities most pronounced within the lung bases persists. This likely represents a viral pneumonia. There are trace bilateral pleural effusions and mild cardiac megaly, unchanged. No pneumothorax. A right jugular central venous catheter terminates in the right atrium. This is also unchanged in position. IMPRESSION: No change in the multifocal hazy airspace opacities likely representing a viral pneumonia. ACT 112: Negative or not required by law. Electronically signed by: Isaiah Khanna M.D. 08/07/2021 9:14 AM I & O Totals 24 Hours 08/06/21 08/07/21 08/08/21 06:59 06:59 06:59 Intake Total 691.228 / 691.228 612.233 / 612.233 0 / 0 Output Total 1520 / 1520 2069 / 2069 105 / 105 Balance -828.772 / -828.772 -1457.767 / -1457.767 -105 / -105 Cumulative 07/30/21 19:07 thru 08/07/21 08:00 Intake Total 8219.954 Output Total 8192 Balance 27.954 RT Ventilator Mngmt (Last Documented) Ventilator Ordered Settings Patient Measurements Comment PT EXTUBATED TO HIGH FLOW 08/06/2021. Oxygenating well on 6 L/min via nasal cannula Coding Level of Care Code 42689 Subseq Hosp Care Lvl 3 Diagnoses ARDS (adult respiratory distress syndrome) J80 Pneumonia due to COVID-19 virus U07.1; J12.82 Hypoxia R09.02 Time Spent (min) 30
[2021-08-07] MEDS ORDERED: INSULIN ASPART PER UNIT SC SCH (12:00)
[2021-08-07] MEDS: cefTRIAXone SODIUM 1,000 MG in DEXTROSE 5% 50 ML IV SCH (12:07)
[2021-08-07] MEDS ORDERED: Nursing to Pharmacy Communication SCH (16:00)
[2021-08-07] MEDS: NYSTATIN SUSP 500,000 U/5 ML UDC PO SCH ×2 (17:56→19:41)
[2021-08-07] MEDS ORDERED: ONDANSETRON INJ 2 MG/ML 2 ML VIAL IV PRN (18:31)
--- NOTE | 2021-08-07 18:40 | Hospitalist Progress Note ---
Date of Service August 07, 2021 Assessment & Plan (1) Pneumonia due to COVID-19 virus: (2) Hypoxia: Plan: Acute Hypoxic Respiratory Failure secondary to COVID-19 pneumonia Status post extubation 08/06/21 Party Chief on board Sedation has been off Continue IV dexamethasone On IV antibiotic Ceftriaxone for UTI Oxygen has been weaned off to 6 L nasal cannula Speech on board for swallow eval due to post extubation FEES suggested Ada on tongue base, whitish protrusion on the left medial surface epiglottitis Started on minced and moist diet with thin liquid Continue monitor closely Oral Ada Nystatin p.o. 4 times daily Epiglottic protrusion Will need outpatient follow-up with ENT Diabetes Most recent hemoglobin A1c 6.8 Pharmacy pharmacy on board for glycemic management Continue monitor blood sugar Hypokalemia: K stable Monitor BMP Hypertension: Patient was on pressor with Levophed due to low BP BP meds on hold Continue monitor BP Deep venous thrombosis prophylaxis: Lovenox. Disposition We will downgrade to PCU Admission and Anticipated Discharge Date Admission Date: July 30, 2021 Subjective Patient was seen and examined for follow-up of respiratory failure due to COVID- 19 Lying in bed with no acute respiratory distress She said her breathing. Currently she is on 6 L nasal cannula Denies any chest pain, palpitation, dizziness, and fever. Review of Systems Review of Systems: All systems reviewed & are unremarkable except as noted in Subjective Physical Exam Physical Exam: General- No acute distress Head- atraumatic Eyes- PERRL, EOMI, ENT- oropharynx clear Neck- supple, no JVD Lungs- +coarse breath sound Heart- regular rhythm; no murmur Abdomen- normal bowel sounds, soft, nontender Extremities- no calf tenderness Neuro- alert, awake; PERRL, EOMI; no facial palsy; no dysarthria, move all 4 extremities Skin- warm & dry Results & Data Results & Data ([facility]) Vital Signs (Past 12 Hours) Vital Signs Temp Pulse Pulse Ox 08/07/21 17:00 37.6 C H 74 08/07/21 16:30 37.6 C H 72 92 08/07/21 16:00 37.5 C 82 90 08/07/21 15:30 37.5 C 85 90 08/07/21 15:00 37.7 C H 67 93 08/07/21 14:30 37.6 C H 76 88 L 08/07/21 14:00 37.6 C H 94 H 91 08/07/21 13:30 37.6 C H 78 90 08/07/21 13:00 37.6 C H 71 94 08/07/21 12:30 37.6 C H 74 92 08/07/21 12:00 37.6 C H 79 92 08/07/21 11:30 37.6 C H 79 89 L 08/07/21 11:00 37.6 C H 70 90 08/07/21 10:30 37.5 C 79 89 L 08/07/21 10:00 37.5 C 80 90 08/07/21 09:30 37.5 C 74 91 08/07/21 09:00 37.5 C 78 91 08/07/21 08:30 37.5 C 70 93 08/07/21 08:00 37.5 C 69 92 08/07/21 07:30 37.4 C 73 91 08/07/21 07:00 37.4 C 69 91
[2021-08-07] MEDS: ENOXAPARIN INJ 40 MG/0.4 ML SYR SQ SCH (19:40)
[2021-08-08] MEDS: FAMOTIDINE 20 MG in SYRINGE 3 ML IV SCH ×3 (00:39→23:18)
[2021-08-08] MEDS ORDERED: ALBUT/IPRATROP 3MG/0.5MG NEB 3 ML VIAL NEB STA (03:37)
[2021-08-08] MEDS ORDERED: dexAMETHasone 6 MG in SYRINGE 0 ML IV ONE (04:00)
[2021-08-08 04:50] LABS: Basophils # (auto) 0.01 K/uL (0-0.2); Basophils % (auto) 0.1 %; Eosinophils # (auto) 0.01 K/uL (0-0.5); Eosinophils % (auto) 0.1 %; Hematocrit (blood only) 41.4 % (37-47); Hemoglobin 13.6 g/dL (12.0-16.0); Immature Granulocytes # (auto) 0.12 K/uL (0.00-0.02); Immature Granulocytes % (auto) 0.9 %; Lymphocytes # (auto) 0.78 K/uL (1.2-3.4); Lymphocytes % (auto) 5.7 %; Mean Corpuscular Hemoglobin 28.9 pg (25-34); Mean Corpuscular Hgb Conc 32.9 g/dL (32-36); Mean Corpuscular Volume 88.1 fL (80-100); Mean Platelet Volume 9.5 fL (7.4-10.4); Monocytes # (auto) 0.67 K/uL (0.11-0.59); Monocytes % (auto) 4.9 %; Neutrophils # (auto) 12.18 K/uL (1.4-6.5); Neutrophils % (auto) 88.3 %; Platelet Count 447 K/uL (130-400); RDW Coefficient of Variation 14.1 % (11.5-14.5); RDW Standard Deviation 46.2 fL (36.4-46.3); White Blood Count 13.77 K/uL (4.8-10.8)
[2021-08-08 04:59] LABS: Partial Thromboplastin Ratio 1.2; Partial Thromboplastin Time 32.5 Seconds (21.0-31.0)
[2021-08-08 05:12] LABS: Allen Test POS (Pos); Base Excess ABG 2.8 mEq/L (-9-1.8); HCO3 ABG 26 mmol/L (19-24); Oxygen Saturation ABG 95.2 % (90-95); PCO2 ABG 37 mmHg (35-46); PO2 ABG 70 mmHg (80-95); pH ABG 7.47 (7.35-7.45)
[2021-08-08 05:13] LABS: BUN Creatinine Ratio 43.2 (10-20); Calcium 8.8 mg/dl (8.5-10.1); Creatinine Clr Calc Pharmacy 54.4 ml/min; Est GFR (African American) 85.3 ml/min; Est GFR (Non-African American) 73.6 ml/min; Potassium 4.3 mmol/L (3.5-5.1)
[2021-08-08 05:16] LABS: Albumin Globulin Ratio 0.5 (0.9-2); Bilirubin,Total 0.5 mg/dl (0.2-1); C Reactive Protein 11.1 mg/dl (0-0.29); Globulin 4.3 gm/dl (2.5-4.0); Total Protein 6.3 gm/dl (6.4-8.2)
[2021-08-08] MEDS: ICU ELECTROLYTE REPLACEMENT PROTOCOL SCH (05:45)
[2021-08-08 06:22] LABS: Magnesium 2.6 mg/dl (1.8-2.4)
--- NOTE | 2021-08-08 07:40 | XRay Report ---
XR chest 1V portable CLINICAL HISTORY: low o2 TECHNIQUE: Single frontal radiograph of the chest was obtained. Comparison: Comparison is made to chest one view 08/07/2021 FINDINGS: Interval removal of right jugular venous catheter. The cardiomediastinal silhouette is normal. Stable bilateral lower lobe predominant airspace opacities. Stable trace bilateral pleural effusions. IMPRESSION: Stable bilateral lower lobe predominant airspace opacities compatible with history of viral pneumonia . ACT 112: Negative or not required by law. Electronically signed by: Derek Tomas M.D. 08/08/2021 7:39 AM
[2021-08-08] MEDS: INSULIN ASPART PER UNIT SC SCH ×4 (09:30→21:33)
[2021-08-08] MEDS: NYSTATIN SUSP 500,000 U/5 ML UDC PO SCH ×4 (09:30→21:31)
[2021-08-08] MEDS: cefTRIAXone SODIUM 1,000 MG in DEXTROSE 5% 50 ML IV SCH (12:27)
--- NOTE | 2021-08-08 15:15 | Pharmacy Report ---
Pharmacy Glycemic Short Note 2 - Date of Service August 08, 2021 - Glycemic Short BSG Results (Last 24 hours): 08/07/21 08/07/21 08/08/21 16:09 19:35 04:38 Glucose 97 POC Glucose 123 H 118 H 08/08/21 08/08/21 07:58 11:40 Glucose POC Glucose 111 H 173 H OUTPATIENT ANTIDIABETIC REGIMEN: * N/A * A1c = 6.8% on 07/31/21 ASSESSMENT: 08/08: * Patient's last dose of dexamethasone given at 0400 AM this morning, held NPH as BSG 111 mg/dL this morning * Continue current novolog parameters, patient ordered regular diet. Will monitor for additional changes needed 08/06: * Pt has remained stable on 25 units of NPH daily since 08/03. BSGs well controlled. Extubated this afternoon. * Dex 6mg q24h continues * TF held intermittently the past 48hr during spontaneous breathing trials * No change to current insulin regimen. Monitor closely for TF re-initiation and/or steroid discontinuation as insulin requirements may change. 08/03: * Patient was intubated this morning and started on Levophed. * BSGs were well controlled the previous few days. * Over the last 24 hours: [id number] mg/dL * Received 30 units NPH + 7 units Novolog yesterday * Fasting BSG was 89 mg/dL this AM * Decreased NPH to 25 units this AM * No changes to Novolog * Will monitor for start of tube feeds as well. 07/31: * 80yo female with steroid induced hyperglycemia. A1c slightly elevated and diagnostic for DMT2 as it is > 6.5% but likely just lifestyle interventions will be needed at [place]. * Pt admitted with COVID-19; receiving dexamethasone 6mg IV daily. Will start weight based NPH for steroid induced hyperglycemia * NPH insulin is used to counteract the hyperglycemic effect of once daily steroids. NPH should be dosed at the same time that steroid is given * The dose of NPH given is dependent on the steroid dose given * For doses of prednisone 40mg/day or equivalent or above NPH dose should be 0.4 units/kg * NPH dosing above is given in addition to patients basal insulin needs * Typically, patients will also need rapid-acting insulin with meals PLAN FOR INPATIENT GLYCEMIC CONTROL: * Basal insulin * hold for now * Bolus insulin * NovoLog per scale ACHS or Q6hrs while NPO * Goal Range: Low 120 mg/dL - High 160 mg/dL * Correction Factor: 30 mg/dL/unit * Nutritional / Prandial insulin per carb ratio of 1 unit per 10 grams CHO consumed PLAN FOR DISCHARGE: * Support Patient Self-Management Healthy Lifestyle (diet, exercise, and smoking cessation) Disease self-management (SMBG) Prevention of complications (BP, Lipid goals, Immunizations) Consider outpatient Diabetes Self-Management Education & Support
[2021-08-08] MEDS: ENOXAPARIN INJ 40 MG/0.4 ML SYR SQ SCH (21:32)
--- NOTE | 2021-08-08 22:28 | Hospitalist Progress Note ---
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 4 times daily Epiglottic protrusion Will need outpatient follow-up with ENT Diabetes Most recent hemoglobin A1c 6.8 Pharmacy pharmacy on board for glycemic management Continue monitor blood sugar Hypokalemia: K stable Monitor BMP Hypertension: Patient was on pressor with Levophed due to low BP BP meds on hold Continue monitor BP Deep venous thrombosis prophylaxis: Lovenox. Disposition Continue monitor on PCU Admission and Anticipated Discharge Date Admission Date: July 30, 2021 Subjective Patient was seen and examined for follow-up of respiratory failure due to COVID- 19 Lying in bed with no acute respiratory distress When I entered her room she was face time with her family She said that early this morning her breathing was alittle worst where she required more oxygen supplement She said that her breathing is much better now Denies any chest pain, palpitation, dizziness, and fever. Review of Systems Review of Systems: All systems reviewed & are unremarkable except as noted in Subjective Physical Exam Physical Exam: General- No acute distress Head- atraumatic Eyes- PERRL, EOMI, ENT- oropharynx clear Neck- supple, no JVD Lungs- +coarse breath sound Heart- regular rhythm; no murmur Abdomen- normal bowel sounds, soft, nontender Extremities- no calf tenderness Neuro- alert, awake; PERRL, EOMI; no facial palsy; no dysarthria, move all 4 extremities Skin- warm & dry Results & Data Results & Data ([facility]) Vital Signs (Past 12 Hours) Vital Signs Temp Pulse Pulse Resp BP Pulse Ox 08/08/21 21:05 36.7 C 65 20 123/67 92 08/08/21 16:00 74 08/08/21 15:14 37.0 C 70 24 116/64 92 08/08/21 14:26 93 08/08/21 11:43 36.7 C 77 20 104/67 92 08/08/21 11:00 84 93
[2021-08-08] MEDS: MELATONIN 3 MG TAB PO PRN (23:18)
[2021-08-09] MEDS: INSULIN ASPART PER UNIT SC SCH ×4 (08:58→20:28)
[2021-08-09] MEDS: NYSTATIN SUSP 500,000 U/5 ML UDC PO SCH ×4 (08:59→20:29)
[2021-08-09 10:45] LABS: Hemoglobin 13.6 g/dL (12.0-16.0); Mean Corpuscular Hemoglobin 29.4 pg (25-34); Mean Corpuscular Hgb Conc 32.4 g/dL (32-36); Mean Corpuscular Volume 90.7 fL (80-100); Mean Platelet Volume 9.8 fL (7.4-10.4); Platelet Count 439 K/uL (130-400); RDW Coefficient of Variation 14.5 % (11.5-14.5); RDW Standard Deviation 48.6 fL (36.4-46.3); Red Blood Count 4.63 M/uL (4.2-5.4); White Blood Count 14.82 K/uL (4.8-10.8)
[2021-08-09] MEDS ORDERED: bisacodyL 5 MG TABEC PO PRN (11:04)
[2021-08-09 12:33] LABS: BUN Creatinine Ratio 38.9 (10-20); Calcium 8.7 mg/dl (8.5-10.1); Creatinine Clr Calc Pharmacy 52.7 ml/min; Est GFR (African American) 82.6 ml/min; Est GFR (Non-African American) 71.3 ml/min; Magnesium 2.4 mg/dl (1.8-2.4); Potassium 4.4 mmol/L (3.5-5.1)
[2021-08-09] MEDS: METOPROLOL TARTRATE 25 MG TAB PO SCH ×2 (12:42→20:29)
[2021-08-09 12:43] LABS: Thyroid Stimulating Hormone 4.18 uIu/ml (0.300-4.500)
[2021-08-09] MEDS: cefTRIAXone SODIUM 1,000 MG in DEXTROSE 5% 50 ML IV SCH (12:43)
[2021-08-09] MEDS: FAMOTIDINE 20 MG in SYRINGE 3 ML IV SCH (12:43)
--- NOTE | 2021-08-09 14:23 | Cardiology Consultation ---
Date of Consultation August 09, 2021 Assessment & Plan (1) Paroxysmal supraventricular tachycardia: (2) Pneumonia due to COVID-19 virus: (3) ARDS (adult respiratory distress syndrome): (4) Hypoxia: 80-year-old female hospitalized with acute Covid pneumonitis/ARDS with transient requirement for mechanical ventilation slowly recovering. This morning with an episode of supraventricular tachycardia which responded to Valsalva maneuver with spontaneous conversion Recommendations continue beta-ruperto as ordered, minimize hypoxia and electrolyte derangement. EKG ordered post conversion History of Present Illness Reason for Consultation: Paroxysmal supraventricular tachycardia Requesting Physician: Dr. Maravilla Attending Physician: Jeanna Maravilla MD History of Present Illness Patient charts were reviewed and care reviewed with nursing staff. Patient is an 80-year-old female with underlying medical issues notable for hypertension now day 10 of hospitalization for acute Covid pneumonitis/ARDS requiring transient mechanical ventilation. Patient extubated 08/06/2021 Patient this morning lapsed into narrow complex tachycardia/SVT while out of bed. Patient was returned to bed and perform Valsalva maneuvers with subsequent spontaneous conversion to sinus rhythm Patient started on oral beta-ruperto with heart rates now in the 70s No cardiac complaints Allergies Allergy/AdvReac Type Severity Reaction Status Date / Time cephalexin [From Keflex] Allergy Unknown Verified 07/30/21 20:37 Penicillins AdvReac HEART Verified 07/30/21 20:37 STOPPED Home Medications Medication Instructions Recorded Confirmed Type ibuprofen 200 mg tablet (Advil) 400 mg PO Q6H PRN 07/30/21 07/30/21 History lisinopril 20 1 tab PO UD 07/30/21 07/30/21 History mg-hydrochlorothiazide 12.5 mg tablet Patient History Social History Smoking Status: Never smoker Hx Alcohol Use: No Hx Substance Use: No Preferred Language: Swedish Communication Ability: Effective Client Relationship Manager Required: No Beliefs That Will Affect Care: None Current Living Situation: Alone Feels Safe at Home: Yes Assistive Devices: Oxygen - Continuous Results & Data ([facility]) Vital Signs (Past 12 Hours) Vital Signs Temp Pulse Resp BP Pulse Ox 08/09/21 11:32 36.8 C 95 H 21 103/69 93 08/09/21 11:01 168 H 24 109/79 92 12/18/21 07:26 37.5 C 84 20 103/57 L 91 08/09/21 04:33 37.5 C 77 18 112/61 88 L Laboratory Results Laboratory Results - last 24 hr 08/08/21 08/08/21 08/09/21 17:11 20:21 08:06 WBC RBC Hgb Hct MCV MCH MCHC RDW Std Deviation RDW Coeff of Sherry Plt Count MPV ESR Sodium Potassium Chloride Carbon Dioxide Anion Gap BUN Creatinine Est Cr Clr Drug Dosing Est GFR ( Amer) Est GFR (Non-Af Amer) BUN/Creatinine Ratio Glucose POC Glucose 103 H 109 H 112 H Calcium Magnesium C-Reactive Protein TSH 08/09/21 08/09/21 08/09/21 09:20 09:20 09:20 WBC 14.82 H RBC 4.63 Hgb 13.6 Hct 42.0 MCV 90.7 MCH 29.4 MCHC 32.4 RDW Std Deviation 48.6 H RDW Coeff of Sherry 14.5 Plt Count 439 H MPV 9.8 ESR 74 H Sodium Potassium Chloride Carbon Dioxide Anion Gap BUN Creatinine Est Cr Clr Drug Dosing Est GFR ( Amer) Est GFR (Non-Af Amer) BUN/Creatinine Ratio Glucose POC Glucose Calcium Magnesium C-Reactive Protein 6.14 H TSH 08/09/21 08/09/21 09:27 11:54 WBC RBC Hgb Hct MCV MCH MCHC RDW Std Deviation RDW Coeff of Sherry Plt Count MPV ESR Sodium 138 Potassium 4.4 Chloride 103 Carbon Dioxide 30 Anion Gap 5.0 BUN 30 H Creatinine 0.78 Est Cr Clr Drug Dosing 52.7 Est GFR ( Amer) 82.6 Est GFR (Non-Af Amer) 71.3 BUN/Creatinine Ratio 38.9 H Glucose 194 H POC Glucose 144 H Calcium 8.7 Magnesium 2.4 C-Reactive Protein TSH 4.180 ECG Additional Comments: 08/09/2021 Supraventricular tachycardia 162 bpm with voltage criteria for left hypertrophy no acute ST segment changes no Q waves
--- NOTE | 2021-08-09 19:34 | Hospitalist Progress Note ---
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 coli Completed course of antibiotic with ceftriaxone now SVT EKG show SVT Converted to sinus with rhythm after Valsalva maneuver Cardiology consulted Case discussed with cardiology recommend to start on metoprolol titrate 25 mg twice daily We will monitor electrolytes Continue monitor in PCU Care Oral Ada Continue Nystatin p.o. 4 times daily Epiglottic protrusion Will need outpatient follow-up with ENT Diabetes Most recent hemoglobin A1c 6.8 Pharmacy pharmacy on board for glycemic management Continue monitor blood sugar Hypokalemia: K stable Monitor BMP Hypertension: Patient was on pressor with Levophed due to low BP BP meds on hold Continue monitor BP Deep venous thrombosis prophylaxis: Lovenox. Disposition Continue monitor on PCU Admission and Anticipated Discharge Date Admission Date: July 30, 2021 Subjective Patient was seen and examined for follow-up of respiratory failure due to COVID- 19 Lying in bed with no acute respiratory distress This morning pt had an episode of MANAGER LANGUAGE which responded to Valsalva maneuver, converted to sinus rhythm She said that she did not notice any palpitation during the episode She said that her breathing is getting better Denies any chest pain, palpitation, dizziness, and fever. Review of Systems Review of Systems: All systems reviewed & are unremarkable except as noted in Subjective Physical Exam Physical Exam: General- No acute distress Head- atraumatic Eyes- PERRL, EOMI, ENT- oropharynx clear Neck- supple, no JVD Lungs- +diminished BS Heart- +tachycardia Abdomen- normal bowel sounds, soft, nontender Extremities- no calf tenderness Neuro- alert, awake; PERRL, EOMI; no facial palsy; no dysarthria, move all 4 extremities Skin- warm & dry Results & Data Results & Data ([facility]) Vital Signs (Past 12 Hours) Vital Signs Temp Pulse Resp BP Pulse Ox 08/09/21 15:58 36.6 C 68 25 H 120/58 L 95 08/09/21 11:32 36.8 C 95 H 21 103/69 93 08/09/21 11:01 168 H 24 109/79 92 08/09/21 07:26 37.5 C 84 20 103/57 L 91
[2021-08-09] MEDS: ENOXAPARIN INJ 40 MG/0.4 ML SYR SQ SCH (20:29)
[2021-08-09] MEDS ORDERED: FUROSEMIDE INJ 20 MG/2 ML VIAL IV ONE (20:51)
[2021-08-10] MEDS: FAMOTIDINE 20 MG in SYRINGE 3 ML IV SCH ×3 (00:01→23:54)
--- NOTE | 2021-08-10 06:40 | Electrocardiogram Report ---
Test Reason : Blood Pressure : / mmHG Vent. Rate : 078 BPM Atrial Rate : 078 BPM P-R Int : 184 ms QRS Dur : 090 ms QT Int : 382 ms P-R-T Axes : 029 -41 025 degrees QTc Int : 435 ms Normal sinus rhythm Left axis deviation Voltage criteria for left ventricular hypertrophy Poor R wave progression, consider anterior UT vs. lead placement vs. LVH Abnormal ECG When compared with ECG of 09-AUG-2021 10:44, Vent. rate has decreased BY 84 BPM Sinus rhythm has replaced Supraventricular tachycardia ST no longer depressed in Lateral leads T wave inversion now evident in Anterior leads T wave inversion no longer evident in Lateral leads Confirmed by Rush Koroma ([id number] on 08/10/2021 6:40:23 AM Referred By: REFERRED SELF Confirmed By:Rush Koroma
[2021-08-10 06:59] LABS: BUN Creatinine Ratio 43.3 (10-20); Calcium 8.9 mg/dl (8.5-10.1); Creatinine Clr Calc Pharmacy 69.8 ml/min; Est GFR (African American) 100.2 ml/min; Est GFR (Non-African American) 86.4 ml/min; Potassium 3.9 mmol/L (3.5-5.1)
[2021-08-10] MEDS: METOPROLOL TARTRATE 25 MG TAB PO SCH ×2 (08:15→20:52)
[2021-08-10] MEDS: INSULIN ASPART PER UNIT SC SCH ×4 (08:18→20:50)
[2021-08-10] MEDS: NYSTATIN SUSP 500,000 U/5 ML UDC PO SCH ×4 (08:19→20:52)
--- NOTE | 2021-08-10 09:49 | Pharmacy Report ---
Pharmacy Glycemic Sign Off Nt - Date of Service August 10, 2021 - Assessment & Plan ASSESSMENT: * Pharmacy was consulted by Dr Andrade on 07/31/21 for glycemic control and to write orders per [facility] inpatient glycemic control protocol. * Major changes made by pharmacy to antidiabetic regimen include: * initiation of NPH for steroid coverage. * Novolog for meal coverage. * Patient has been receiving/requiring 0 units of insulin per day for adequate glycemic control * BSGs ranging 134-144 mg/dl * Regimen has only required minor adjustments over the past 48hrs to achieve this level of control * Do not anticipate further changes in patient status that would quickly deteriorate glycemic control (i.e. patient to be NPO for upcoming procedure, steroids tapering, starting tube feedings, etc). * Please see recommendations for outpatient antidiabetic regimen below. PLAN FOR INPATIENT GLYCEMIC CONTROL: No changes needed to current regimen. * Continue NovoLog per scale ACHS/Q6hrs while NPO * Goal range = 120 -150 mg/dl * CF = 30 mg/dl/unit * CR = 1 unit for ever 10 g CHO consumed * Pharmacy is signing off of glycemic consult and will no longer be making adjustments to inpatient regimen. Please feel free to re-consult if needed. Thank you. DISCHARGE RECOMMENDATIONS: * A1c 6.8 % on 07/31/21 * Support Patient Self-Management Healthy Lifestyle (diet, exercise, and smoking cessation) Disease self-management (SMBG) Prevention of complications (BP, Lipid goals, Immunizations) Consider outpatient Diabetes Self-Management Education & Support
[2021-08-10] MEDS ORDERED: POTASSIUM CHLORIDE CRTAB 20 MEQ TABCR PO STA (10:09)
[2021-08-10] MEDS ORDERED: FUROSEMIDE INJ 20 MG/2 ML VIAL IV ONE (10:09)
--- NOTE | 2021-08-10 19:30 | Hospitalist Progress Note ---
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 coli Completed course of antibiotic with ceftriaxone now SVT EKG show SVT Converted to sinus with rhythm after Valsalva maneuver Cardiology consulted Case discussed with cardiology recommend to start on metoprolol titrate 25 mg twice daily Continue metoprolol 25 mg twice daily Rate controlled Oral Ada Continue Nystatin p.o. 4 times daily Epiglottic protrusion Will need outpatient follow-up with ENT Diabetes Most recent hemoglobin A1c 6.8 Pharmacy pharmacy on board for glycemic management Continue monitor blood sugar Hypokalemia: K stable Monitor BMP Hypertension: Patient was on pressor with Levophed due to low BP Will resume home BP meds Continue monitor BP Deep venous thrombosis prophylaxis: Lovenox. Disposition Continue monitor on PCU Admission and Anticipated Discharge Date Admission Date: July 30, 2021 Subjective Patient was seen and examined for follow-up of respiratory failure due to COVID- 19 Lying in bed with no acute respiratory distress She said that she feels much better today While I was there I watched the nurse transferred thanks her from the bed to the chair Oxygen dropped in the 84 during transferring from bed to chair I spoke to her [id number] Sera in detail and provided update and answered all question Denies any chest pain, palpitation, dizziness, and fever. Review of Systems Review of Systems: All systems reviewed & are unremarkable except as noted in Subjective Physical Exam Physical Exam: General- No acute distress Head- atraumatic Eyes- PERRL, EOMI, ENT- oropharynx clear Neck- supple, no JVD Lungs- +diminished BS Heart- regular Abdomen- normal bowel sounds, soft, nontender Extremities- no calf tenderness Neuro- alert, awake; PERRL, EOMI; no facial palsy; no dysarthria, move all 4 extremities Skin- warm & dry Results & Data Results & Data ([facility]) Vital Signs (Past 12 Hours) Vital Signs Temp Pulse Pulse Resp BP Pulse Ox 08/10/21 16:00 68 08/10/21 13:00 91 08/10/21 11:56 37.2 C 71 21 127/78 89 L 08/10/21 08:00 72
[2021-08-10] MEDS: ENOXAPARIN INJ 40 MG/0.4 ML SYR SQ SCH (20:51)
[2021-08-11 07:22] LABS: Hematocrit (blood only) 40.5 % (37-47); Hemoglobin 13.1 g/dL (12.0-16.0); Mean Corpuscular Hgb Conc 32.3 g/dL (32-36); Mean Corpuscular Volume 89.6 fL (80-100); Mean Platelet Volume 9.7 fL (7.4-10.4); Platelet Count 381 K/uL (130-400); Red Blood Count 4.52 M/uL (4.2-5.4); White Blood Count 12.85 K/uL (4.8-10.8)
[2021-08-11 07:59] LABS: BUN Creatinine Ratio 46.6 (10-20); Calcium 8.2 mg/dl (8.5-10.1); Creatinine Clr Calc Pharmacy 83.2 ml/min; Est GFR (African American) 105.9 ml/min; Est GFR (Non-African American) 91.4 ml/min
[2021-08-11] MEDS: LISINOPRIL/HCTZ 20/12.5MG 1 TAB TAB PO SCH (08:39)
[2021-08-11] MEDS: INSULIN ASPART PER UNIT SC SCH ×4 (08:41→21:00)
[2021-08-11] MEDS: NYSTATIN SUSP 500,000 U/5 ML UDC PO SCH ×4 (08:41→21:02)
[2021-08-11] MEDS: METOPROLOL TARTRATE 25 MG TAB PO SCH ×2 (08:41→21:02)
[2021-08-11] MEDS: FAMOTIDINE 20 MG in SYRINGE 3 ML IV SCH (11:44)
[2021-08-11] MEDS: FAMOTIDINE 20 MG TAB PO SCH ×2 (11:45→21:02)
[2021-08-11] MEDS: ENOXAPARIN INJ 40 MG/0.4 ML SYR SQ SCH (21:02)
--- NOTE | 2021-08-11 21:15 | Hospitalist Progress Note ---
Date of Service August 11, 2021 Assessment & Plan (1) Pneumonia due to COVID-19 virus: (2) Hypoxia: Plan: Acute Hypoxic Respiratory Failure secondary to COVID-19 pneumonia Status post extubation 08/06/21 Heddler Tier on board Sedation has been off Dexamethasone and Ceftriaxone course completed Currently on oxygen supplement with 11 L nasal cannula Speech was consulted for swallow eval due to post extubation FEES suggested Ada on tongue base, whitish protrusion on the left medial surface epiglottitis Continue minced and moist diet with thin liquid Will consider to give Lasix 20 mg IV x1 Continue monitor closely UTI Urine culture grew E. coli Completed course of antibiotic with ceftriaxone SVT EKG show SVT Converted to sinus with rhythm after Valsalva maneuver Cardiology consulted Case discussed with cardiology recommend to start on metoprolol titrate 25 mg twice daily Continue metoprolol 25 mg twice daily Rate controlled Oral Ada Continue Nystatin p.o. 4 times daily Epiglottic protrusion Will need outpatient follow-up with ENT Diabetes Most recent hemoglobin A1c 6.8 Pharmacy pharmacy on board for glycemic management Continue monitor blood sugar Hypokalemia: K stable Monitor BMP Hypertension: Patient was on pressor with Levophed due to low BP Will resume home BP meds Continue monitor BP Deep venous thrombosis prophylaxis: Lovenox. Disposition Continue monitor on PCU Admission and Anticipated Discharge Date Admission Date: July 30, 2021 Subjective Patient was seen and examined for follow-up of respiratory failure due to COVID- 19 Lying in bed with no acute respiratory distress She has been required 15L NC currently I make the nurse change the sensor and her Saturation was above 92% Denies any chest pain, palpitation, dizziness, and fever. Review of Systems Review of Systems: All systems reviewed & are unremarkable except as noted in Subjective Physical Exam Physical Exam: General- No acute distress Head- atraumatic Eyes- PERRL, EOMI, ENT- oropharynx clear Neck- supple, no JVD Lungs- +diminished BS Heart- regular Abdomen- normal bowel sounds, soft, nontender Extremities- no calf tenderness Neuro- alert, awake; PERRL, EOMI; no facial palsy; no dysarthria, move all 4 extremities Skin- warm & dry Results & Data Results & Data ([facility]) Vital Signs (Past 12 Hours) Vital Signs Temp Pulse Resp BP BP Pulse Ox 08/11/21 21:01 71 129/73 93 08/11/21 19:24 36.8 C 78 18 121/65 90 08/11/21 15:42 36.6 C 71 20 103/71 92 08/11/21 11:53 36.6 C 64 21 121/63 90
[2021-08-12] MEDS ORDERED: ACETAMINOPHEN 325 MG TAB PO STA (02:08)
[2021-08-12] MEDS ORDERED: OPTIRAY 320 100ml IV ONE (02:38)
[2021-08-12 04:17] LABS: Hematocrit (blood only) 38.3 % (37-47); Hemoglobin 12.5 g/dL (12.0-16.0); Mean Corpuscular Hemoglobin 29.1 pg (25-34); Mean Corpuscular Hgb Conc 32.6 g/dL (32-36); Mean Corpuscular Volume 89.3 fL (80-100); Mean Platelet Volume 9.6 fL (7.4-10.4); Platelet Count 355 K/uL (130-400); RDW Standard Deviation 45.7 fL (36.4-46.3); Red Blood Count 4.29 M/uL (4.2-5.4); White Blood Count 15.05 K/uL (4.8-10.8)
[2021-08-12] MEDS ORDERED: SODIUM CHLORIDE 0.9% 500 ML IV ONE (04:30)
[2021-08-12] MEDS ORDERED: POLYETHYLENE (MIRALAX) 17 GM PACK PO STA (04:31)
[2021-08-12 04:35] LABS: Albumin Level 1.8 gm/dl (3.4-5.0); BUN Creatinine Ratio 38.5 (10-20); Calcium 8.8 mg/dl (8.5-10.1); Creatinine Clr Calc Pharmacy 65.8 ml/min; Est GFR (Non-African American) 84.6 ml/min; Potassium 3.7 mmol/L (3.5-5.1)
[2021-08-12] MEDS ORDERED: DOCUSATE SODIUM/SENNA 50/8.6MG TAB PO SCH ×2 (04:35→09:00)
[2021-08-12 04:36] LABS: Magnesium 2.3 mg/dl (1.8-2.4)
[2021-08-12 04:38] LABS: Albumin Globulin Ratio 0.5 (0.9-2); Bilirubin,Total 0.7 mg/dl (0.2-1); Total Protein 5.8 gm/dl (6.4-8.2)
[2021-08-12 05:00] LABS: Basophils # (auto) 0.01 K/uL (0-0.2); Basophils % (auto) 0.1 %; Eosinophils # (auto) 0.07 K/uL (0-0.5); Eosinophils % (auto) 0.5 %; Immature Granulocytes # (auto) 0.06 K/uL (0.00-0.02); Immature Granulocytes % (auto) 0.4 %; Lymphocytes # (auto) 0.63 K/uL (1.2-3.4); Lymphocytes % (auto) 4.2 %; Monocytes # (auto) 0.64 K/uL (0.11-0.59); Monocytes % (auto) 4.3 %; Neutrophils # (auto) 13.64 K/uL (1.4-6.5); Neutrophils % (auto) 90.5 %
[2021-08-12] MEDS ORDERED: FUROSEMIDE INJ 20 MG/2 ML VIAL IV ONE (06:29)
--- NOTE | 2021-08-12 07:15 | CT Scan Report ---
ABDOMEN AND PELVIS CT WITH IV CONTRAST CT DOSE: 484.63 mGy.cm HISTORY: Acute generalized abdominal pain abd pain TECHNIQUE: Multiaxial CT images of the abdomen and pelvis were performed following the IV administrat ion of 94 cc of Optiray, A dose lowering technique was utilized adhering to the principles of ALARA. COMPARISON STUDY: Chest radiograph 08/08/2021, CTA chest 07/31/2021 FINDINGS: Cardiomegaly. Trace pleural effusions. Extensive bibasilar consolidative densities with intermixed gr oundglass opacities. Respiratory motion artifact limits the study. No pneumatosis or pneumoperitoneum . Unremarkable spleen, mildly atrophic pancreas and gallbladder. Mild thickening of the adrenal gland s suggestive of hyperplasia. There is an indeterminate irregular hypodense 3.0 x 1.9 x 4.0 cm lesion involving the inferior right hepatic lobe with mild capsular retraction. The liver is otherwise unrem arkable. Patent portal vein. Mild cortical scarring with parenchymal thinning of the inferior pole left kidney. Punctate nonobstru cting calculus of the superior pole left kidney. No hydronephrosis. Unremarkable urinary bladder, [place] and adnexa. Atherosclerosis of the aorta without aneurysm. No adenopathy. Tiny hiatal hernia. No bowel obstruction or bowel wall thickening. Moderate fecal retention. Colonic diverticulosis without acute diverticulitis. The appendix is fluid-filled and mildly dilated at 8 mm however is noninflamed. Unremarkable soft tissues. Degenerative changes of the spine, pelvis and hips . IMPRESSION: 1. Extensive bibasilar consolidation compatible with pneumonia redemonstrated. 2. Indeterminate 4 cm irregular hypodense lesion within segment of the liver with associated capsu lar retraction. Due to the motion artifact on this exam, the patient may not be able to tolerate MRI. Correlation with a CT liver protocol recommended. 3. Punctate left renal calculus. 4. No bowel obstruction or bowel wall thickening. 5. Fluid-filled mildly dilated noninflamed appendix. An underlying mucocele would be difficult to exc lude. Attention at follow-up recommended. ACT 112: Negative or not required by law. The above report was generated using voice recognition software. It may contain grammatical, syntax o r spelling errors. Electronically signed by: Freddy Miramontes M.D. 08/12/2021 7:13 AM
[2021-08-12] MEDS ORDERED: guaiFENesin 200 MG TAB PO PRN (07:57)
[2021-08-12] MEDS ORDERED: bisacodyL 10 MG SUPP PR STA (07:57)
[2021-08-12] MEDS: METOPROLOL TARTRATE 25 MG TAB PO SCH ×2 (08:10→20:23)
[2021-08-12] MEDS: NYSTATIN SUSP 500,000 U/5 ML UDC PO SCH ×4 (08:10→20:24)
[2021-08-12] MEDS: FAMOTIDINE 20 MG TAB PO SCH ×2 (08:10→20:23)
[2021-08-12] MEDS: LISINOPRIL/HCTZ 20/12.5MG 1 TAB TAB PO SCH (08:10)
[2021-08-12] MEDS: INSULIN ASPART PER UNIT SC SCH ×4 (09:14→21:14)
[2021-08-12] MEDS ORDERED: ANUSOL SUPP 1 EA PR PRN (11:38)
[2021-08-12] MEDS: HYDROCORTISONE 2.5% CR 30 GM TUBE EXT SCH ×2 (12:33→20:24)
[2021-08-12] MEDS ORDERED: LACTULOSE SYRUP 20 GM/30 ML UDC PO ONE (19:45)
[2021-08-12] MEDS: DOCUSATE SODIUM/SENNA 50/8.6MG TAB PO SCH (20:23)
[2021-08-12] MEDS: MELATONIN 3 MG TAB PO PRN (20:23)
[2021-08-12] MEDS: ENOXAPARIN INJ 40 MG/0.4 ML SYR SQ SCH (20:24)
--- NOTE | 2021-08-12 21:51 | Hospitalist Progress Note ---
Date of Service August 12, 2021 Assessment & Plan (1) Pneumonia due to COVID-19 virus: (2) Hypoxia: Plan: Acute Hypoxic Respiratory Failure secondary to COVID-19 pneumonia Status post extubation 08/06/21 Cylinder Checker on board Sedation has been off Dexamethasone and Ceftriaxone course completed Currently on 15 L oxygen supplement Speech was consulted for swallow eval due to post extubation FEES suggested Ada on tongue base, whitish protrusion on the left medial surface epiglottitis Continue minced and moist diet with thin liquid Lasix dose hold today since patient had contrast earlier this morning Continue monitor closely Abdominal pain Mostly related to constipation CT abd/pelvis showed no bowel obstruction or bowel wall thickening. Fluid-filled mildly dilated noninflamed appendix. Pain improved after a bowel movement CT finding discussed with surgery - no surgical intervention for the appendix at this time. If symptoms worsening with pain in the RLQ and white count elevated, will discuss again with the surgery team for eval. Continue laxative and stool softener Liver Lesion CT abdomen pelvis showed indeterminate 4 cm irregular hypodense lesion within segment of the liver with associated capsular retraction. Consider MRI of the liver or CT liver protocol for follow-up UTI Urine culture grew E. coli Completed course of antibiotic with ceftriaxone SVT EKG show SVT Converted to sinus with rhythm after Valsalva maneuver Cardiology consulted Case discussed with cardiology recommend to start on metoprolol titrate 25 mg twice daily Continue metoprolol 25 mg twice daily Rate controlled Oral Ada Continue Nystatin p.o. 4 times daily Epiglottic protrusion Will need outpatient follow-up with ENT Diabetes Most recent hemoglobin A1c 6.8 Pharmacy pharmacy on board for glycemic management Continue monitor blood sugar Hypokalemia: K stable Monitor BMP Hypertension: Patient was on pressor with Levophed due to low BP Continue home BP meds Continue monitor BP Deep venous thrombosis prophylaxis: Lovenox. Disposition Continue monitor on PCU Admission and Anticipated Discharge Date Admission Date: July 30, 2021 Subjective Patient was seen and examined for follow-up of respiratory failure due to COVID- 19 Lying in bed with no acute respiratory distress Earlier today patient said that she was having abdominal pain and feels bloated She has not had a bowel movement for the last few days They had to disimpact her to get the stool out She is currently requiring 15 L oxygen Spoke to [id number] Sera that would like to take her home for the holidays Denies any chest pain, palpitation, dizziness, and fever. Review of Systems Review of Systems: All systems reviewed & are unremarkable except as noted in Subjective Physical Exam Physical Exam: General- No acute distress Head- atraumatic Eyes- PERRL, EOMI, ENT- oropharynx clear Neck- supple, no JVD Lungs- +diminished BS Heart- regular Abdomen- normal bowel sounds, soft, nontender Extremities- no calf tenderness Neuro- alert, awake; PERRL, EOMI; no facial palsy; no dysarthria, move all 4 extremities Skin- warm & dry Results & Data Results & Data ([facility]) Vital Signs (Past 12 Hours) Vital Signs Temp Pulse Resp BP BP Pulse Ox 08/12/21 20:22 72 134/73 08/12/21 19:24 36.8 C 70 22 124/70 91 08/12/21 15:52 36.5 C 78 26 H 124/73 87 L 08/12/21 11:37 36.5 C 85 20 125/68
[2021-08-13] MEDS ORDERED: METOPROLOL TARTRATE 1 MG/ML VIAL IV STA ×2 (00:36→00:45)
[2021-08-13] MEDS ORDERED: POTASSIUM CHLORIDE CRTAB 20 MEQ TABCR PO STA (00:38)
[2021-08-13] MEDS ORDERED: AMIODARONE IV BOLUS & DRIP IV STA (00:47)
[2021-08-13] MEDS ORDERED: STAT IV Infusion **Titration per Protocol STA (00:47)
[2021-08-13] MEDS ORDERED: ALBUMIN 25% 100 mL 25 GM/100 ML VIAL IV ONE (00:47)
[2021-08-13] MEDS ORDERED: AMIODARONE / D5W 150 MG/100 ML BAG IV STA (00:47)
[2021-08-13] MEDS ORDERED: 0.2 MICRON FILTER SET 1 EA IV ONE (00:47)
[2021-08-13] MEDS ORDERED: AMIODARONE / D5W 360 MG/200 ML BAG IV ONE (00:58)
[2021-08-13] MEDS ORDERED: AMIODARONE / D5W 360 MG/200 ML BAG IV SCH (07:00)
[2021-08-13 07:07] LABS: Hematocrit (blood only) 39.5 % (37-47); Hemoglobin 12.7 g/dL (12.0-16.0); Mean Corpuscular Hemoglobin 28.8 pg (25-34); Mean Corpuscular Hgb Conc 32.2 g/dL (32-36); Mean Corpuscular Volume 89.6 fL (80-100); Mean Platelet Volume 9.7 fL (7.4-10.4); Platelet Count 387 K/uL (130-400); RDW Coefficient of Variation 14.1 % (11.5-14.5); RDW Standard Deviation 46.1 fL (36.4-46.3); Red Blood Count 4.41 M/uL (4.2-5.4); White Blood Count 13.35 K/uL (4.8-10.8)
[2021-08-13 07:46] LABS: Albumin Globulin Ratio 0.4 (0.9-2); Albumin Level 1.8 gm/dl (3.4-5.0); BUN Creatinine Ratio 34.1 (10-20); Bilirubin,Total 0.6 mg/dl (0.2-1); Calcium 8.8 mg/dl (8.5-10.1); Creatinine Clr Calc Pharmacy 67.6 ml/min; Est GFR (African American) 99.1 ml/min; Est GFR (Non-African American) 85.5 ml/min; Globulin 4.4 gm/dl (2.5-4.0); Potassium 3.7 mmol/L (3.5-5.1); Total Protein 6.2 gm/dl (6.4-8.2)
[2021-08-13] MEDS: INSULIN ASPART PER UNIT SC SCH ×4 (08:19→20:39)
[2021-08-13] MEDS: LISINOPRIL/HCTZ 20/12.5MG 1 TAB TAB PO SCH (08:29)
[2021-08-13] MEDS: HYDROCORTISONE 2.5% CR 30 GM TUBE EXT SCH ×2 (08:29→19:51)
[2021-08-13] MEDS: DOCUSATE SODIUM/SENNA 50/8.6MG TAB PO SCH ×2 (08:29→19:51)
[2021-08-13] MEDS: FAMOTIDINE 20 MG TAB PO SCH ×2 (08:30→19:50)
[2021-08-13] MEDS: NYSTATIN SUSP 500,000 U/5 ML UDC PO SCH ×4 (08:30→19:50)
[2021-08-13] MEDS: METOPROLOL TARTRATE 25 MG TAB PO SCH ×2 (08:30→19:52)
--- NOTE | 2021-08-13 15:25 | Hospitalist Progress Note ---
Date of Service August 13, 2021 Assessment & Plan (1) Pneumonia due to COVID-19 virus: (2) Hypoxia: Plan: Acute Hypoxic Respiratory Failure secondary to COVID-19 pneumonia Status post extubation 08/06/21 Dexamethasone and Ceftriaxone course completed Currently on 15 L oxygen supplement Speech was consulted for swallow eval due to post extubation FEES suggested Ada on tongue base, whitish protrusion on the left medial surface epiglottitis Continue minced and moist diet with thin liquid Plan to give lasix tomorrow Abdominal pain Mostly related to constipation. CT abd/pelvis showed no bowel obstruction or bowel wall thickening. Fluid-filled mildly dilated noninflamed appendix. Pain improved after a bowel movement. None at this time CT finding discussed with surgery - no surgical intervention for the appendix at this time. If symptoms worsening with pain in the RLQ and white count elevated, will discuss again with the surgery team for eval. Continue laxative and stool softener Liver Lesion CT abdomen pelvis showed indeterminate 4 cm irregular hypodense lesion within segment of the liver with associated capsular retraction. Consider MRI of the liver or CT liver protocol for follow-up UTI Urine culture grew E. coli Completed course of antibiotic with ceftriaxone SVT EKG show SVT Converted to sinus with rhythm after Valsalva maneuver Cardiology consulted Case discussed with cardiology recommend to start on metoprolol titrate 25 mg twice daily Continue metoprolol 25 mg twice daily Rate controlled Oral Ada Continue Nystatin p.o. 4 times daily Epiglottic protrusion Will need outpatient follow-up with ENT Diabetes Most recent hemoglobin A1c 6.8 Pharmacy pharmacy on board for glycemic management Continue monitor blood sugar Hypokalemia: Resolved K stable Monitor BMP Hypertension: Stable Continue home BP meds Deep venous thrombosis prophylaxis: Lovenox. Disposition Continue monitor on PCU Will call daughter in law for updates after rounds per pt request Admission and Anticipated Discharge Date Admission Date: July 30, 2021 Subjective 80-year-old female with past medical history significant for hypertension, who presents with COVID symptoms Being managed for acute hypoxic respiratory failure due to COVID-19 pneumonia Was intubated on 08/03/2021 and extubated on 07/27/2021 to high flow nasal cannula. Patient seen and examined. Still reports cough type. Reports occasional shortness of breath. Denies any chest pain, nausea, vomiting, abdominal pain Diarrhea Denies any fevers or chills Denies dysuria, frequency, urgency Reports weakness Physical Exam Constitutional: Elderly woman. No obvious distress. Eyes: PERRL, conjunctivae normal, anicteric sclerae ENMT: external ear and nose normal, oropharynx normal Respiratory: Diminished breath sounds On 12 L/min nasal cannula Cardiovascular: Rate/Rhythm: regular rate and regular rhythm S1-S2 Gastrointestinal (Abdomen): normal bowel sounds, soft, nontender, no hepatosplenomegaly Musculoskeletal: No LE edema Neurologic: PERRL, EOMI, accommodation nl, no face palsy, no dysarthria Psychiatric: Alert and oriented to person and place only. Cooperative. Results & Data Results & Data ([facility]) Vital Signs (Past 12 Hours) Vital Signs Temp Pulse Pulse Resp BP Pulse Ox 08/13/21 13:08 36.5 C 69 28 H 101/71 87 L 08/13/21 07:44 36.8 C 71 22 132/63 90 08/13/21 06:30 62 Laboratory Results Abnormal lab results 08/12/21 08/12/21 08/13/21 Range/Units 17:12 20:36 06:14 WBC 13.35 H (4.8-10.8) K/uL BUN (7-18) mg/dl BUN/Creatinine Ratio (10-20) Glucose (70-99) mg/dl POC Glucose 133 H 110 H (70-99) mg/dl Total Protein (6.4-8.2) gm/dl Albumin (3.4-5.0) gm/dl Globulin (2.5-4.0) gm/dl Albumin/Globulin Ratio (0.9-2) 08/13/21 08/13/21 08/13/21 Range/Units 06:14 08:11 12:05 WBC (4.8-10.8) K/uL BUN 20 H (7-18) mg/dl BUN/Creatinine Ratio 34.1 H (10-20) Glucose 137 H (70-99) mg/dl POC Glucose 136 H 164 H (70-99) mg/dl Total Protein 6.2 L (6.4-8.2) gm/dl Albumin 1.8 L (3.4-5.0) gm/dl Globulin 4.4 H (2.5-4.0) gm/dl Albumin/Globulin Ratio 0.4 L (0.9-2)
[2021-08-13] MEDS: ENOXAPARIN INJ 40 MG/0.4 ML SYR SQ SCH (19:50)
[2021-08-14 07:25] LABS: Hematocrit (blood only) 40.1 % (37-47); Hemoglobin 12.9 g/dL (12.0-16.0); Mean Corpuscular Hemoglobin 29.1 pg (25-34); Mean Corpuscular Hgb Conc 32.2 g/dL (32-36); Mean Corpuscular Volume 90.5 fL (80-100); Mean Platelet Volume 9.9 fL (7.4-10.4); Platelet Count 405 K/uL (130-400); RDW Coefficient of Variation 14.3 % (11.5-14.5); RDW Standard Deviation 46.5 fL (36.4-46.3); Red Blood Count 4.43 M/uL (4.2-5.4); White Blood Count 12.52 K/uL (4.8-10.8)
[2021-08-14 08:00] LABS: BUN Creatinine Ratio 35.7 (10-20); Calcium 8.7 mg/dl (8.5-10.1); Creatinine Clr Calc Pharmacy 71.2 ml/min; Est GFR (African American) 101.3 ml/min; Est GFR (Non-African American) 87.4 ml/min; Magnesium 2.1 mg/dl (1.8-2.4); Potassium 3.5 mmol/L (3.5-5.1)
[2021-08-14 08:07] LABS: C Reactive Protein 22.5 mg/dl (0-0.29); Phosphorus 3.6 mg/dl (2.5-4.9)
[2021-08-14] MEDS: INSULIN ASPART PER UNIT SC SCH ×4 (08:08→22:11)
[2021-08-14] MEDS: HYDROCORTISONE 2.5% CR 30 GM TUBE EXT SCH ×2 (09:02→22:12)
[2021-08-14] MEDS: NYSTATIN SUSP 500,000 U/5 ML UDC PO SCH ×4 (09:03→22:12)
[2021-08-14] MEDS: LISINOPRIL/HCTZ 20/12.5MG 1 TAB TAB PO SCH (09:03)
[2021-08-14] MEDS: DOCUSATE SODIUM/SENNA 50/8.6MG TAB PO SCH ×2 (09:03→22:15)
[2021-08-14] MEDS: FAMOTIDINE 20 MG TAB PO SCH ×2 (09:03→22:14)
[2021-08-14] MEDS: METOPROLOL TARTRATE 25 MG TAB PO SCH ×2 (09:04→22:13)
--- NOTE | 2021-08-14 10:07 | XRay Report ---
XR chest 1V portable CLINICAL HISTORY: Reeval. Hypoxia. Follow-up bilateral lung opacities COMPARISON STUDY: 08/08/2021 TECHNIQUE: 1 view of the chest FINDINGS: Single frontal view of the chest demonstrates the cardiomediastinal silhouette to be within normal li mits. Compared to previous examination, bilateral alveolar opacities are again seen and essentially u nchanged. There is a decreased inspiratory effort on the current study. There is no evidence for pleu ral effusion. There is no evidence for vascular congestion. There is no acute osseous pathology. IMPRESSION: Decreased inspiration with no significant interval change in bilateral alveolar opacities . ACT 112: Negative or not required by law. Electronically signed by: José Miguel Thomas M.D. 08/14/2021 10:05 AM
--- NOTE | 2021-08-14 11:35 | XRay Report ---
XR chest 1V portable HISTORY: 80 years-old Female Worsening consolidation acute shortness of breath COMPARISON: Chest radiograph 08/14/2021 TECHNIQUE: Portable AP view of the chest FINDINGS: Cardiac silhouette is enlarged, unchanged. No pneumothorax. Suspected small pleural effusions. Inters titial coarsening with extensive bilateral airspace opacities, not significantly changed. Degenerativ e changes of the shoulders and spine. The bones appear grossly intact. IMPRESSION: Generally stable appearance of the extensive bilateral airspace opacities compatible with multifocal pneumonia. ACT 112: Negative or not required by law. The above report was generated using voice recognition software. It may contain grammatical, syntax o r spelling errors. Electronically signed by: Freddy Miramontes M.D. 08/14/2021 11:34 AM
[2021-08-14 11:50] LABS: Allen Test Pos (Pos); Base Excess ABG 3.1 mEq/L (-9-1.8); HCO3 ABG 26 mmol/L (19-24); Oxygen Saturation ABG 90.9 % (90-95); PCO2 ABG 35 mmHg (35-46); PO2 ABG 58 mmHg (80-95); pH ABG 7.49 (7.35-7.45)
[2021-08-14] MEDS: AZITHROMYCIN 500 MG in DEXTROSE 5% 250 ML IV SCH (12:09)
--- NOTE | 2021-08-14 13:08 | Hospitalist Progress Note ---
Date of Service August 14, 2021 Assessment & Plan (1) Pneumonia due to COVID-19 virus: (2) Hypoxia: Plan: Acute Hypoxic Respiratory Failure secondary to COVID-19 pneumonia Status post extubation 08/06/21 Dexamethasone completed CRP increasing. Procalcitonin 0.07 Started on azithromycin. Discussed with gaming investigator. Recommendations appreciated Chest x-ray today showed stable bilateral alveolar opacities Speech was consulted for swallow eval due to post extubation FEES suggested Ada on tongue base, whitish protrusion on the left medial surface epiglottitis Continue minced and moist diet with thin liquid Plan to give lasix tomorrow Abdominal pain Mostly related to constipation. CT abd/pelvis showed no bowel obstruction or bowel wall thickening. Fluid-filled mildly dilated noninflamed appendix. Pain improved after a bowel movement. None at this time CT finding discussed with surgery - no surgical intervention for the appendix at this time. If symptoms worsening with pain in the RLQ and white count elevated, will discuss again with the surgery team for eval. Continue laxative and stool softener Liver Lesion CT abdomen pelvis showed indeterminate 4 cm irregular hypodense lesion within segment of the liver with associated capsular retraction. Consider MRI of the liver or CT liver protocol for follow-up UTI Urine culture grew E. coli Completed course of antibiotic with ceftriaxone SVT EKG show SVT Converted to sinus with rhythm after Valsalva maneuver Cardiology consulted and recommend to start on metoprolol titrate 25 mg twice daily Continue metoprolol 25 mg twice daily Rate controlled Oral Ada Continue Nystatin p.o. 4 times daily Epiglottic protrusion Will need outpatient follow-up with ENT Diabetes Most recent hemoglobin A1c 6.8 Pharmacy pharmacy on board for glycemic management Continue monitor blood sugar Hypokalemia: Resolved K stable Monitor BMP Hypertension: Stable Continue home BP meds Deep venous thrombosis prophylaxis: Lovenox. Disposition Continue monitor on PCU [id number] updated per patient's request Admission and Anticipated Discharge Date Admission Date: July 30, 2021 Subjective 80-year-old female with past medical history significant for hypertension, who presents with COVID symptoms Being managed for acute hypoxic respiratory failure due to COVID-19 pneumonia Was intubated on 08/03/2021 and extubated on 07/27/2021 to high flow nasal cannula. Patient seen and examined. Still reports cough and occasional shortness of breath Denies any chest pain, nausea, vomiting, abdominal pain Denies any fevers or chills Denies dysuria, frequency, urgency Physical Exam Constitutional: + ill appearing and + well hydrated Eyes: PERRL, conjunctivae normal, anicteric sclerae ENMT: external ear and nose normal, oropharynx normal Respiratory: Tachypneic, on nonrebreather, Basilar crackles Cardiovascular: Rate/Rhythm: regular rate and regular rhythm S1-S2 Gastrointestinal (Abdomen): normal bowel sounds, soft, nontender, no hepatosplenomegaly Musculoskeletal: No pedal edema Neurologic: PERRL, EOMI, accommodation nl, no face palsy, no dysarthria Psychiatric: Alert and oriented to person, place, month and year Cooperative Results & Data Results & Data ([facility]) Vital Signs (Past 12 Hours) Vital Signs Temp Pulse Resp BP BP Pulse Ox 08/14/21 11:48 37.0 C 72 20 125/63 91 08/14/21 07:23 37.2 C 89 24 139/80 91 08/14/21 04:00 36.8 C 79 25 H 129/70 90 Laboratory Results Abnormal lab results 08/13/21 08/14/21 08/14/21 Range/Units 20:32 05:51 05:51 WBC 12.52 H (4.8-10.8) K/uL RDW Std Deviation 46.5 H (36.4-46.3) fL Plt Count 405 H (130-400) K/uL ABG pH (7.35-7.45) ABG pO2 (80-95) mmHg ABG HCO3 (19-24) mmol/L ABG Base Excess (-9-1.8) mEq/L BUN 20 H (7-18) mg/dl Creatinine 0.56 L (0.6-1.2) mg/dl BUN/Creatinine Ratio 35.7 H (10-20) Glucose 113 H (70-99) mg/dl POC Glucose 122 H (70-99) mg/dl C-Reactive Protein 22.50 H (0-0.29) mg/dl 08/14/21 08/14/21 08/14/21 Range/Units 07:36 11:34 11:46 WBC (4.8-10.8) K/uL RDW Std Deviation (36.4-46.3) fL Plt Count (130-400) K/uL ABG pH 7.49 H (7.35-7.45) ABG pO2 58 L (80-95) mmHg ABG HCO3 26 H (19-24) mmol/L ABG Base Excess 3.1 H (-9-1.8) mEq/L BUN (7-18) mg/dl Creatinine (0.6-1.2) mg/dl BUN/Creatinine Ratio (10-20) Glucose (70-99) mg/dl POC Glucose 114 H 123 H (70-99) mg/dl C-Reactive Protein (0-0.29) mg/dl
--- NOTE | 2021-08-14 13:50 | Pulmonology Progress Note ---
Date of Service August 14, 2021 Assessment & Plan (1) ARDS (adult respiratory distress syndrome): (2) Pneumonia due to COVID-19 virus: (3) Hypoxia: Plan: Impression: 80-year-old female with ARDS secondary to Covid pneumonitis. She failed conservative management with high flow oxygen and noninvasive positive pressure ventilation and was intubated 08/03/2021. She was successfully extubated 08/06/2021 to hi raoul O2. She describes no acute distress. The patient continues to require high flow supplemental oxygen. Chest x-ray this morning shows some worsening. Procalcitonin, MRSA swab ordered. Patient started on azithromycin 08/14/2021 Previous 24 hours: Patient remains hemodynamically stable. Successfully extubated 08/06/2021. Worsening on the chest x-ray. Patient is more lucid and successfully passed Mini-Mental status exam as listed above. Recommendations: 1. COVID-19/ARDs: * Patient was started on remdesivir and baricitinib but then required endotracheal intubation with mechanical ventilation * Successfully extubated 08/06/2021 but remains dependent on high flow supplemental oxygen * Completed course of dexamethasone * Patient is much more attentive and indicates that she would not want to be reintubated. She further states that the rest of her healing is in God's hands and that she would like CODE STATUS changed to DNR/DNI. * Patient continues to have postinflammatory syndrome. * Completed course of ceftriaxone previously this admission for UTI * Started patient on azithromycin 500 mg IV 08/14/2021 for 5-day course * No indication for increasing steroids * Procalcitonin is negative at 0.07 today * CRP continues to be elevated at 22.5 * At this time continue supportive care and supplemental oxygen and continue to monitor on telemetry 2. Acute respiratory failure with hypoxia: * ABG performed today with alkalotic findings with a pH of 7.49 and a PCO2 of 35. PaO2 is 58, HCO3 is 26 * No indication for BiPAP or CPAP at this time. Continue high flow supplemental oxygen * Continue with supportive care. Patient may need tincture of time for further improvement * Suggest increasing activity as tolerated to out of bed and walking in room * Continue with incentive spirometry * Out of bed to chair as much as tolerated * Continue self proning as tolerated 3. Oral candidiasis: * No evidence on exam today. * Continue nystatin suspension 4 times daily AC at bedtime swish and swallow 4. Epiglottal lesion: * Identified on FEES 08/07/2021 * Should have ENT evaluation the first week of August * At the time of the FEES, laryngeal fold seem to be symmetrical and synchronous in movement 5. Pneumonia: * Worsening chest x-ray today. Procalcitonin negative. * Completed course of ceftriaxone * 5 days of azithromycin 500 mg IV ordered * MRSA screening with nasal swab today negative. No indication for vancomycin or other antibiotic. * Follow serial chest x-ray * Continue supportive care. Discussed with Dilia Monte, [id number] to the patient and to [facility]. Family updated with plan. All questions answered to the best my ability and to the apparent satisfaction of the family. Admission and Anticipated Discharge Date Admission Date: July 30, 2021 Supervising Physician Co-Signing Physician Notes I saw and evaluated the patient with Wil Lang, and agree with findings and plan as documented in the note. Patient seen and examined at bedside. Breathing in the mid to high 20s. Saturating 89-90% on nonrebreather. She did have significant history of Covid pneumonia she was intubated and extubated successfully At the time of examination she denied any headache, no nausea or vomiting She says her breathing is getting worse. Denies any blurry vision. Chest x-ray from today shows worsening infiltrates. I will start the patient on antibiotics We will order nasal MRSA if it is positive start vancomycin I did asked the patient whether she would be willing to be intubated if there is a need and there is worsening of shortness of breath She said she would not like to have intubation again even if it is a question of life and is High flow can be tried for the patient or CPAP if the patient is agreeable to it and is comfortable with it. Continue with antibiotics for atypical coverage Please note the above document was generated using voice recognition software. It may contain grammatical, syntax or spelling errors.Any formal questions or concerns about the content, text or information contained within the body of this dictation should be directly addressed to the provider for clarification. Subjective Attending: Dr. Padilla Patient seen and examined in room 206. She is alert and oriented. She does not appear to be in any acute distress. She does have a nonrebreather on at this time and is having trouble keeping it in place. Patient is awake and talkative. She is completely lucid. She advises me that she has a meeting this afternoon to settle the estate from the recent passing of her . She also indicates that she would like to assign her son Alberto Monte as power of real estate attorney. She said that nursing has already coordinated iPad for Zoom session. She still does have some shortness of breath. She also continues with a fairly nonproductive cough. She denies any fever. She has no chest pain or tightness. She has no headache. She understands that she continues to be quite sick. CXR this morning looks worse. Patient is clear that if her condition worsens that she would not want chest compressions or mechanical ventilation. She would like code status changed to DNR/DNI. I did speak to her daughter in law Dilia Monte, to Alberto, and she indicated that the patient stated her desires to them as well. I did an abbreviated MMSE at bedside. Patient can state her name and . She knows that she is at [facility] and that she was intubated due to COVID pneumonia. She knows she is in [employer]. She can identify a pen, cell phone, and nativity set by name and then recall them later in the conversation. She can read a sentence and tell me the time from an anolog clock. She can differentiate left from right and she follows commands. She is able to sit up unassisted. She was not able to tell me the date or the day of week but could tell me that falls between Wednesday and Wednesday. She could also count backwards from 100 and spell the word "WORLD". Review of Systems Review of Systems: All systems reviewed & are unremarkable except as noted in Subjective Physical Exam Physical Exam: GENERAL : No acute distress. Patient much more alert and very talkative. EYES: No icterus, gaze conjugate NOSE: No evidence of epistaxis. Nasal cannula in place for high flow oxygen MOUTH: No lesions or candidiasis. Mucosa moist NECK: Supple LUNGS: Bibasilar crackles. HEART: Regular, rate controlled ABDOMEN: Soft, NT, ND, BS Present EXTREMITIES: No LE edema, pedal pulses intact NEURO: A&OX3. MMSE as above in HPI Results & Data Results & Data ([facility]) Vital Signs (Past 12 Hours) Vital Signs Temp Pulse Resp BP BP Pulse Ox 08/14/21 11:48 37.0 C 72 20 125/63 91 08/14/21 07:23 37.2 C 89 24 139/80 91 08/14/21 04:00 36.8 C 79 25 H 129/70 90 Laboratory Results 08/14/21 05:51 08/14/21 05:51 Diagnostic Findings Chest X-Ray 08/14/21 08:42 XR chest 1V portable CLINICAL HISTORY: Reeval. Hypoxia. Follow-up bilateral lung opacities COMPARISON STUDY: 08/08/2021 TECHNIQUE: 1 view of the chest FINDINGS: Single frontal view of the chest demonstrates the cardiomediastinal silhouette to be within normal limits. Compared to previous examination, bilateral alveolar opacities are again seen and essentially unchanged. There is a decreased inspiratory effort on the current study. There is no evidence for pleural effusion. There is no evidence for vascular congestion. There is no acute osseous pathology. IMPRESSION: Decreased inspiration with no significant interval change in bilateral alveolar opacities. ACT 112: Negative or not required by law. Electronically signed by: José Miguel Thomas M.D. 08/14/2021 10:05 AM Chest X-Ray 08/14/21 11:15 XR chest 1V portable HISTORY: 80 years-old Female Worsening consolidation acute shortness of breath COMPARISON: Chest radiograph 08/14/2021 TECHNIQUE: Portable AP view of the chest FINDINGS: Cardiac silhouette is enlarged, unchanged. No pneumothorax. Suspected small pleural effusions. Interstitial coarsening with extensive bilateral airspace opacities, not significantly changed. Degenerative changes of the shoulders and spine. The bones appear grossly intact. IMPRESSION: Generally stable appearance of the extensive bilateral airspace opacities compatible with multifocal pneumonia. ACT 112: Negative or not required by law. The above report was generated using voice recognition software. It may contain grammatical, syntax or spelling errors. Electronically signed by: Freddy Miramontes M.D. 08/14/2021 11:34 AM PG Care Time/CCT Total # of Minutes Spent Total Time Spent with Patient: Total time spent is greater than 50% in coordination of care (as documented) at patient's floor/unit and/or counseling patient: Coding Level of Care Code 87246 Subseq Hosp Care Lvl 2 Diagnoses ARDS (adult respiratory distress syndrome) J80 Pneumonia due to COVID-19 virus U07.1; J12.82 Hypoxia R09.02 Time Spent (min) 40
[2021-08-14] MEDS ORDERED: RAPID SEQUENCE INDUCTION BAG ONE (14:19)
[2021-08-14] MEDS: ENOXAPARIN INJ 40 MG/0.4 ML SYR SQ SCH (22:15)
[2021-08-15] MEDS ORDERED: METOPROLOL TARTRATE 25 MG TAB PO SCH
[2021-08-15 06:40] LABS: BUN Creatinine Ratio 44.6 (10-20); Creatinine Clr Calc Pharmacy 90.4 ml/min; Est GFR (African American) 109.7 ml/min; Est GFR (Non-African American) 94.7 ml/min; Potassium 3.2 mmol/L (3.5-5.1)
[2021-08-15] MEDS ORDERED: NITROGLYCERIN SL 0.4 MG/TAB TAB SL PRN (07:23)
--- NOTE | 2021-08-15 08:03 | XRay Report ---
XR chest 1V portable HISTORY: 80 years-old Female chest pain. hypoxia acute atypical chest pain with hypoxia COMPARISON: Chest radiograph 08/14/2021 TECHNIQUE: Portable AP view of the chest FINDINGS: Cardiac silhouette is enlarged, unchanged. No pneumothorax. Suspected small pleural effusions. Inters titial coarsening with extensive bilateral airspace opacities, slightly improved from prior. Degenera tive changes of the shoulders and spine. The bones appear grossly intact. IMPRESSION: Slight improvement of the extensive bilateral airspace opacities compatible with multifoc al pneumonia. ACT 112: Negative or not required by law. The above report was generated using voice recognition software. It may contain grammatical, syntax o r spelling errors. Electronically signed by: Freddy Miramontes M.D. 08/15/2021 8:01 AM
[2021-08-15] MEDS: NYSTATIN SUSP 500,000 U/5 ML UDC PO SCH ×4 (08:29→20:40)
[2021-08-15] MEDS: LISINOPRIL/HCTZ 20/12.5MG 1 TAB TAB PO SCH (08:29)
[2021-08-15] MEDS: DOCUSATE SODIUM/SENNA 50/8.6MG TAB PO SCH ×2 (08:29→20:39)
[2021-08-15] MEDS: FAMOTIDINE 20 MG TAB PO SCH ×2 (08:29→20:39)
[2021-08-15] MEDS: METOPROLOL TARTRATE 25 MG TAB PO SCH ×2 (08:29→20:40)
[2021-08-15] MEDS ORDERED: POTASSIUM CHLORIDE CRTAB 20 MEQ TABCR PO STA (08:40)
[2021-08-15] MEDS: AZITHROMYCIN 500 MG in DEXTROSE 5% 250 ML IV SCH (08:46)
[2021-08-15] MEDS: INSULIN ASPART PER UNIT SC SCH ×4 (08:46→20:40)
[2021-08-15] MEDS: HYDROCORTISONE 2.5% CR 30 GM TUBE EXT SCH ×2 (08:47→20:39)
[2021-08-15] MEDS ORDERED: POTASSIUM CHLORIDE 20 MEQ/15 ML UDC PO STA (08:48)
[2021-08-15] MEDS ORDERED: POTASSIUM CHLORIDE 20 MEQ/15 ML UDC PO SCH (08:48)
[2021-08-15] MEDS ORDERED: FLUoxetine HCL 10 MG CAP PO SCH (09:00)
[2021-08-15 09:08] LABS: Magnesium 2.3 mg/dl (1.8-2.4); Phosphorus 3.2 mg/dl (2.5-4.9)
--- NOTE | 2021-08-15 09:12 | Hospitalist Progress Note ---
Date of Service August 15, 2021 Assessment & Plan (1) Pneumonia due to COVID-19 virus: (2) Hypoxia: Plan: Acute Hypoxic Respiratory Failure secondary to COVID-19 pneumonia Status post extubation 08/06/21 Dexamethasone completed CRP increasing. Worsening resp status. Was started on azithromycin. Patient is also depressed. Recently lost and child per family. Probably adjustment disorder/Grief in the setting of prolonged illness too Started on fluoxetine. Patient asking to be discharged home Trial of BIPAP to give relief. Paient is DNR Speech was consulted for swallow eval due to post extubation FEES suggested Ada on tongue base, whitish protrusion on the left medial surface epiglottitis Continue minced and moist diet with thin liquid Abdominal pain Mostly related to constipation. CT abd/pelvis showed no bowel obstruction or bowel wall thickening. Fluid-filled mildly dilated noninflamed appendix. Pain improved after a bowel movement. None at this time CT finding discussed with surgery - no surgical intervention for the appendix at this time. If symptoms worsening with pain in the RLQ and white count elevated, will discuss again with the surgery team for eval. Continue laxative and stool softener Liver Lesion CT abdomen pelvis showed indeterminate 4 cm irregular hypodense lesion within segment of the liver with associated capsular retraction. Consider MRI of the liver or CT liver protocol for follow-up UTI Urine culture grew E. coli Completed course of antibiotic with ceftriaxone SVT EKG show SVT Converted to sinus with rhythm after Valsalva maneuver Cardiology consulted and recommend to start on metoprolol titrate 25 mg twice daily Continue metoprolol 25 mg twice daily Rate controlled Oral Ada Continue Nystatin p.o. 4 times daily Epiglottic protrusion Can do outpatient follow-up with ENT Diabetes Most recent hemoglobin A1c 6.8 Pharmacy pharmacy on board for glycemic management Continue monitor blood sugar Hypokalemic today resolved Replete Hypertension: Stable Continue home BP meds Deep venous thrombosis prophylaxis: Lovenox. Admission and Anticipated Discharge Date Admission Date: July 30, 2021 Subjective 80-year-old female with past medical history significant for hypertension, who presents with COVID symptoms Being managed for acute hypoxic respiratory failure due to COVID-19 pneumonia Was intubated on 08/03/2021 and extubated on 07/27/2021 to high flow nasal cannula. Patient seen and examined. Reports cough and shortness of breath Reports chest pain with shortness of breath Denies nausea, vomiting, abdominal pain Denies any fevers or chills Denies dysuria, frequency, urgency Reports anorexia, depression Denied suicidal ideation Stated she is tired and wants to go home Physical Exam Constitutional: + acute distress (Tachypneic), + ill appearing and + well hydrated Eyes: PERRL, conjunctivae normal, anicteric sclerae ENMT: external ear and nose normal, oropharynx normal Respiratory: In resp distress with tachypnea, on NRB Diminished breath sounds with crackles Cardiovascular: Rate/Rhythm: regular rate and regular rhythm S1 S2 Gastrointestinal (Abdomen): normal bowel sounds, soft, nontender, no hepatosplenomegaly Neurologic: PERRL, EOMI, accommodation nl, no face palsy, no dysarthria Results & Data Results & Data ([facility]) Vital Signs (Past 12 Hours) Vital Signs Temp Pulse Pulse Resp BP BP Pulse Ox 08/15/21 07:15 36.4 C L 84 30 H 131/81 88 L 08/15/21 03:48 36.7 C 79 21 140/80 92 08/14/21 23:31 36.7 C 73 22 131/78 91 08/14/21 23:18 99 H Laboratory Results Abnormal lab results 08/14/21 08/14/21 08/14/21 Range/Units 11:34 11:46 16:44 ABG pH 7.49 H (7.35-7.45) ABG pO2 58 L (80-95) mmHg ABG HCO3 26 H (19-24) mmol/L ABG Base Excess 3.1 H (-9-1.8) mEq/L Potassium (3.5-5.1) mmol/L BUN (7-18) mg/dl Creatinine (0.6-1.2) mg/dl BUN/Creatinine Ratio (10-20) Glucose (70-99) mg/dl POC Glucose 123 H 114 H (70-99) mg/dl 08/14/21 08/14/21 08/15/21 Range/Units 19:16 20:51 05:32 ABG pH (7.35-7.45) ABG pO2 (80-95) mmHg ABG HCO3 (19-24) mmol/L ABG Base Excess (-9-1.8) mEq/L Potassium 3.2 L (3.5-5.1) mmol/L BUN 20 H (7-18) mg/dl Creatinine 0.44 L (0.6-1.2) mg/dl BUN/Creatinine Ratio 44.6 H (10-20) Glucose 139 H (70-99) mg/dl POC Glucose 117 H 155 H (70-99) mg/dl 08/15/21 Range/Units 07:33 ABG pH (7.35-7.45) ABG pO2 (80-95) mmHg ABG HCO3 (19-24) mmol/L ABG Base Excess (-9-1.8) mEq/L Potassium (3.5-5.1) mmol/L BUN (7-18) mg/dl Creatinine (0.6-1.2) mg/dl BUN/Creatinine Ratio (10-20) Glucose (70-99) mg/dl POC Glucose 134 H (70-99) mg/dl
--- NOTE | 2021-08-15 10:20 | Discharge Summary ---
Date of Service August 15, 2021 Admission HPI Per Admitting Provider This is an 80-year-old female with past medical history significant for hypertension, who presents with COVID symptoms since last Wednesday and Wednesday, 4-5 days ago. The patient says her recently and she thinks she was exposed to a family member who got COVID. She is feeling extremely fatigued, weakness, appetite is down, on and off fevers, on and off cough, of and off headaches. When she stands up, she feels somewhat imbalance. The weakness brought her to the hospital and she was saturating 73% on room air. With 10 liters, she is saturating at 92%. Currently resting comfortably. Denies any blurred visions. No runny nose, no sore throat, no earaches. No difficulty swallowing. No chest pain. Denies any shortness of breath at this time. No nausea, no abdominal pain, no diarrhea. No swelling in the legs. Admission Exam Per Admitting Provider GENERAL: The patient is of moderate build, not in acute distress. VITAL SIGNS: Temperature 37.9, pulse 77, respiratory rate 20, blood pressure 178/88, oxygen 92% on 10 liters. HEENT: Pupils equal, round, and reactive to light. Oral mucosa moist. NECK: No JVD. No neck masses seen. CARDIOVASCULAR: S1 and S2 heard. Regular rate and rhythm. No murmur, no gallop. RESPIRATORY SYSTEM: Normal AP diameter. No accessory muscle use. No wheezing, no crackles. ABDOMEN: Soft, bowel sounds present, nontender, no distention. CENTRAL NERVOUS SYSTEM: Cranial nerves II-XII grossly intact, nonfocal. EXTREMITIES: No edema, no erythema Principal Diagnosis Acute hypoxic respiratory failure COVID 19 pneumonia Discharge Exam Constitutional + acute distress (Tachypneic), + ill appearing and + well hydrated Eyes PERRL, conjunctivae normal, anicteric sclerae ENMT external ear and nose normal, oropharynx normal Respiratory Tachypneic, on NRB Diminished breath sounds, crackles Cardiovascular Rate/Rhythm: regular rate and regular rhythm S1 S2 Gastrointestinal (Abdomen) normal bowel sounds, soft, nontender, no hepatosplenomegaly Musculoskeletal No pedal edema Neurologic PERRL, EOMI, accommodation nl, no face palsy, no dysarthria Discharge Data Allergies Allergy/AdvReac Type Severity Reaction Status Date / Time cephalexin [From Keflex] Allergy Unknown Verified 07/30/21 20:37 Penicillins AdvReac HEART Verified 07/30/21 20:37 STOPPED Consultations 07/30/21 21:54 ED Decision to Admit Stat 08/02/21 14:13 Consult Pulmonology Routine 08/09/21 10:51 Consult Cardiology Routine 08/15/21 07:35 Consult Psychiatry Routine Ordered Studies 07/31/21 07:28 CT angio chest PE protocol Urgent Lungs and pleura: Multifocal groundglass and consolidative opacities are seen favoring the lower lungs. Heart and pericardium: Heart size is normal. No pericardial effusion. Vessels: The pulmonary trunk is enlarged measuring 33 mm. Mediastinum and rena: Subcentimeter lymph nodes are seen. Chest wall and lower neck: A 19 mm left thyroid nodule is seen. Abdomen: Unremarkable. Bones: Unremarkable. IMPRESSION: 1. No evidence of pulmonary embolism. 2. Pulmonary hypertension. 3. Multiple airspace consolidative opacities compatible with viral pneumonia with or without superimposed aspiration/atelectasis. 08/12/21 02:07 CT abd pelvis IV con only Urgent Cardiomegaly. Trace pleural effusions. Extensive bibasilar consolidative densi ties with intermixed groundglass opacities. Respiratory motion artifact limits the study. No pneumatosis or pneumoperitoneum. Unremarkable spleen, mildly atrophic pancreas and gallbladder. Mild thickening of the adrenal glands suggestive of hyperplasia. There is an indeterminate irregular hypodense 3.0 x 1.9 x 4.0 cm lesion involving the inferior right hepatic lobe with mild capsular retraction. The liver is otherwise unremarkable. Patent portal vein. Mild cortical scarring with parenchymal thinning of the inferior pole left kidney. Punctate nonobstructing calculus of the superior pole left kidney. No hydronephrosis. Unremarkable urinary bladder, uterus and adnexa. Atherosclerosis of the aorta without aneurysm. No adenopathy. Tiny hiatal hernia. No bowel obstruction or bowel wall thickening. Moderate fecal retention. Colonic diverticulosis without acute diverticulitis. The appendix is fluid-filled and mildly dilated at 8 mm however is noninflamed. Unremarkable soft tissues. Degenerative changes of the spine, pelvis and hips. IMPRESSION: 1. Extensive bibasilar consolidation compatible with pneumonia redemonstrated. 2. Indeterminate 4 cm irregular hypodense lesion within segment of the liver with associated capsular retraction. Due to the motion artifact on this exam, the patient may not be able to tolerate MRI. Correlation with a CT liver protocol recommended. 3. Punctate left renal calculus. 4. No bowel obstruction or bowel wall thickening. 5. Fluid-filled mildly dilated noninflamed appendix. An underlying mucocele would be difficult to exclude. Attention at follow-up recommended Diabetes Follow up Diabetes Follow-up Needed for Newly Diagnosed Diabetes Hospital Course (1) Pneumonia due to COVID-19 virus: (2) Hypoxia: Acute Hypoxic Respiratory Failure secondary to COVID-19 pneumonia Was intubated on 08/03/21 Status post extubation 08/06/21 Dexamethasone and antibiotic initially completed Patient was initially stable after extubation but still requiring High flow nasal oxygen supplementation She changed her code status to DNR Respiratory status worsened and patient was started on azithromycin Patient is also depressed. Recently lost and child per family. Probably adjustment disorder/Grief in the setting of prolonged illness too Today, patient wants to go home and spend the rest of her time with family. Patient and family decided to pursue home hospice care Liver Lesion CT abdomen pelvis showed indeterminate 4 cm irregular hypodense lesion within segment of the liver with associated capsular retraction. UTI Urine culture grew E. coli Completed course of antibiotic with ceftriaxone SVT EKG show SVT Converted to sinus with rhythm after Valsalva maneuver Cardiology consulted and recommend to start on metoprolol titrate 25 mg twice daily Continue metoprolol 25 mg twice daily Rate controlled Oral Ada Speech was consulted for swallow eval due to post extubation FEES suggested Ada on tongue base, whitish protrusion on the left medial surface epiglottitis Continue minced and moist diet with thin liquid Continue Nystatin p.o. 4 times daily Epiglottic protrusion Can do outpatient follow-up with ENT if needed Diabetes Most recent hemoglobin A1c 6.8 Hypertension: Stable Continue home BP meds Arrangements were made for home hospice Family wants to continue home meds for now as well Total Time Total Time Spent Total Time Spent (In Minutes): 50 Total Time Includes: Examination of the Patient, Discharge Planning, Medication Reconciliation and Communication With Other Providers Discharge Plan Discharge Items Patient Disposition: Hospice - Home Reason For Visit: COVID EXPOSURE, SOB, COUGH, WEAK, Discharge Diagnosis: Acute hypoxic respiratory failure COVID 19 pneumonia Activity: Resume your previous activity Non-emergency contact: Primary Care Provider Call non-emergency contact if: your symptoms worsen Follow-up/Referrals: Alberto Mcmillan [Primary Care Provider] - () Diet: Carb Count or DM1 Diet Comment: Minced and moist. Aspiration precautions Addtl Attending Provider Instructions: Mrs Mell Enriquez presented to the hospital with COVID 19 symptoms. You were evaluated and treatment started. You required intubation and mechanical ventilation for some days. However, you are still requiring a lot of oxygen You and your family decided you want to be discharged on home hospice. Please contact the Home hospice agency for any worsening symptoms. It was a pleasure taking care of you. Pending Studies at Discharge: No Stand-Alone Forms: My [facility] DVTel, Smoking Cessation Medications and DC Order Prescriptions: New nystatin 100,000 unit/mL Suspension 5 ml PO QID 7 Days Qty: 140 RF: 0 guaifenesin 200 mg/5 mL liquid 200 mg PO Q6H PRN (Reason: cough) Qty: 473 RF: 0 lorazepam [Ativan] 0.5 mg tablet 0.5 mg PO Q8H PRN (Reason: anxiety) Qty: 20 RF: 0 azithromycin 500 mg tablet 500 mg PO DAILY 3 Days Qty: 3 RF: 0 scopolamine base 1 mg over 3 days patch 3 day 1 patch transdermal Q3D PRN (Reason: secretions) Qty: 4 RF: 0 morphine 20 mg/5 mL (4 mg/mL) solution 5 mg PO Q6H PRN (Reason: pain) Qty: 100 RF: 0 metoprolol tartrate 25 mg Tablet 25 mg PO BID Qty: 60 RF: 0 Continued lisinopril-hydrochlorothiazide 20-12.5 mg tablet 1 tab PO UD RF: 0 Discontinued ibuprofen [Advil] 200 mg Tablet 400 mg PO Q6H PRN (Reason: Pain) RF: 0 Discharge Orders: Discharge Order (Routine); Ordered 08/15/21 Ordered By: Nuria Gonzalez/Other Patient Handouts: High Blood Sugar (Hyperglycemia), 5 Steps for Eating Healthier, Type 2 Diabetes Admission Data Admit Date/Time: 07/30/21 22:09 Attending Provider: Nuria Sanders I. Admit Provider: Yovani Andrade Primary Care Provider: Alberto Mcmillan Other Providers: Yunier Valencia ; Yovani Andrade ; Jefe Alvarez ; Sumit Gonzalez Other Interventions: Discharge Summary Assessment (RN) Last Done: 08/15/21 12:11
--- NOTE | 2021-08-15 10:30 | Electrocardiogram Report ---
Test Reason : Blood Pressure : / mmHG Vent. Rate : 089 BPM Atrial Rate : 089 BPM P-R Int : 162 ms QRS Dur : 090 ms QT Int : 386 ms P-R-T Axes : 039 -36 006 degrees QTc Int : 469 ms Normal sinus rhythm Left axis deviation Voltage criteria for left ventricular hypertrophy Nonspecific T wave abnormality Abnormal ECG When compared with ECG of 09-AUG-2021 13:52, Nonspecific T wave abnormality, worse in Anterior leads Confirmed by Vernon Souza ([id number]) on 08/15/2021 10:30:20 AM Referred By: REFERRED SELF Confirmed By:Vernon Souza
[2021-08-15] MEDS ORDERED: MoRPHine SULFATE 5 MG/0.25 ML UDP PO PRN (19:10)
[2021-08-15] MEDS ORDERED: ONDANSETRON 4 MG OD TAB SL PRN (19:10)
[2021-08-15] MEDS ORDERED: LORazepam 0.5 MG TAB PO PRN (19:10)
[2021-08-15] MEDS ORDERED: HYOSCYAMINE SULFATE 0.125 MG TAB SL PRN (19:10)
[2021-08-15] MEDS ORDERED: LORazepam 0.5 MG/1 ML VIAL IV PRN ×2 (19:10→21:53)
[2021-08-15] MEDS ORDERED: ONDANSETRON INJ 2 MG/ML 2 ML VIAL IV PRN (19:10)
[2021-08-15] MEDS ORDERED: STAT IV Infusion **Titration per Protocol STA (20:20)
[2021-08-15] MEDS ORDERED: MoRPHine SULF/NSS 250 MG/250 ML BTL IV SCH (20:30)
[2021-08-15] MEDS: ENOXAPARIN INJ 40 MG/0.4 ML SYR SQ SCH (20:39)
--- NOTE | 2021-08-16 07:30 | Discharge Summary ---
Date of Service August 16, 2021 Admission HPI Per Admitting Provider This is an 80-year-old female with past medical history significant for hypertension, who presents with COVID symptoms since last Wednesday and Wednesday, 4-5 days ago. The patient says her recently and she thinks she was exposed to a family member who got COVID. She is feeling extremely fatigued, weakness, appetite is down, on and off fevers, on and off cough, of and off headaches. When she stands up, she feels somewhat imbalance. The weakness brought her to the hospital and she was saturating 73% on room air. With 10 liters, she is saturating at 92%. Currently resting comfortably. Denies any blurred visions. No runny nose, no sore throat, no earaches. No difficulty swallowing. No chest pain. Denies any shortness of breath at this time. No nausea, no abdominal pain, no diarrhea. No swelling in the legs. Admission Exam Per Admitting Provider GENERAL: The patient is of moderate build, not in acute distress. VITAL SIGNS: Temperature 37.9, pulse 77, respiratory rate 20, blood pressure 178/88, oxygen 92% on 10 liters. HEENT: Pupils equal, round, and reactive to light. Oral mucosa moist. NECK: No JVD. No neck masses seen. CARDIOVASCULAR: S1 and S2 heard. Regular rate and rhythm. No murmur, no gallop. RESPIRATORY SYSTEM: Normal AP diameter. No accessory muscle use. No wheezing, no crackles. ABDOMEN: Soft, bowel sounds present, nontender, no distention. CENTRAL NERVOUS SYSTEM: Cranial nerves II-XII grossly intact, nonfocal. EXTREMITIES: No edema, no erythema Principal Diagnosis Acute hypoxic respiratory failure COVID 19 pneumonia Discharge Exam Discharge Data Allergies Allergy/AdvReac Type Severity Reaction Status Date / Time cephalexin [From Keflex] Allergy Unknown Verified 07/30/21 20:37 Penicillins AdvReac HEART Verified 07/30/21 20:37 STOPPED Consultations 07/30/21 21:54 ED Decision to Admit Stat 08/02/21 14:13 Consult Pulmonology Routine 08/09/21 10:51 Consult Cardiology Routine Ordered Studies 07/31/21 07:28 CT angio chest PE protocol Urgent Lungs and pleura: Multifocal groundglass and consolidative opacities are seen favoring the lower lungs. Heart and pericardium: Heart size is normal. No pericardial effusion. Vessels: The pulmonary trunk is enlarged measuring 33 mm. Mediastinum and rena: Subcentimeter lymph nodes are seen. Chest wall and lower neck: A 19 mm left thyroid nodule is seen. Abdomen: Unremarkable. Bones: Unremarkable. IMPRESSION: 1. No evidence of pulmonary embolism. 2. Pulmonary hypertension. 3. Multiple airspace consolidative opacities compatible with viral pneumonia with or without superimposed aspiration/atelectasis. 08/12/21 02:07 CT abd pelvis IV con only Urgent Cardiomegaly. Trace pleural effusions. Extensive bibasilar consolidative densities with intermixed groundglass opacities. Respiratory motion artifact limits the study. No pneumatosis or pneumoperitoneum. Unremarkable spleen, mildly atrophic pancreas and gallbladder. Mild thickening of the adrenal glands suggestive of hyperplasia. There is an indeterminate irregular hypodense 3.0 x 1.9 x 4.0 cm lesion involving the inferior right hepatic lobe with mild capsular retraction. The liver is otherwise unremarkable. Patent portal vein. Mild cortical scarring with parenchymal thinning of the inferior pole left kidney. Punctate nonobstructing calculus of the superior pole left kidney. No hydronephrosis. Unremarkable urinary bladder, uterus and adnexa. Atherosclerosis of the aorta without aneurysm. No adenopathy. Tiny hiatal hernia. No bowel obstruction or bowel wall thickening. Moderate fec al retention. Colonic diverticulosis without acute diverticulitis. The appendix is fluid-filled and mildly dilated at 8 mm however is noninflamed. Unremarkable soft tissues. Degenerative changes of the spine, pelvis and hips. IMPRESSION: 1. Extensive bibasilar consolidation compatible with pneumonia redemonstrated. 2. Indeterminate 4 cm irregular hypodense lesion within segment of the liver with associated capsular retraction. Due to the motion artifact on this exam, the patient may not be able to tolerate MRI. Correlation with a CT liver protocol recommended. 3. Punctate left renal calculus. 4. No bowel obstruction or bowel wall thickening. 5. Fluid-filled mildly dilated noninflamed appendix. An underlying mucocele would be difficult to exclude. Attention at follow-up recommended Diabetes Follow up Diabetes Follow-up Needed for Newly Diagnosed Diabetes Hospital Course (1) Pneumonia due to COVID-19 virus: (2) Hypoxia: Acute Hypoxic Respiratory Failure secondary to COVID-19 pneumonia Was intubated on 08/03/21 Status post extubation 08/06/21 Dexamethasone and antibiotic initially completed Patient was initially stable after extubation but still requiring High flow nasal oxygen supplementation She changed her code status to DNR Respiratory status worsened and patient was started on azithromycin Patient is also depressed. Recently lost and child per family. Probably adjustment disorder/Grief in the setting of prolonged illness too Patient and family decided to transition to comfort care measures and be discharged home on home hospice. Discharge arrangements/transport were made However, was informed by RN that patient subsequently declined to be transported home late in the day on 08/15/21 as she decided to start full comfort measures inpatient and have her family come in to spend some time with her. Comfort measures were initiated. Patient on 08/15/21 at 1052PM Other clinical problems during hospital stay include: Liver Lesion UTI SVT Oral Ada Epiglottic protrusion Diabetes Hypertension: Total Time Total Time Spent Total Time Spent (In Minutes): 15 Total Time Includes: Other Discharge Plan Discharge Items Patient Disposition: Discharge Diagnosis: Acute hypoxic respiratory failure COVID 19 pneumonia Addtl Attending Provider Instructions: Mrs Monte You presented to the hospital with COVID 19 symptoms. You were evaluated and treatment started. You required intubation and mechanical ventilation for some days. However, you are still requiring a lot of oxygen You and your family decided you want to be discharged on home hospice. Please contact the Home hospice agency for any worsening symptoms. It was a pleasure taking care of you. Other Date/Time: 08/15/21 22:52
== END 2021-08-15 22:52 | disposition expired | DRG 208 ==
LOC: ED 19:07 → EDINP 22:09 → SUATTDRO 22:09 → EDINP 23:30 → 2S 08-02 00:01 → 2E 08-02 22:35